=== PATIENT | male | born 1965 | race American Indian/Alaskan Native ===

== ENCOUNTER 2017-01-17 17:50 | Inpatient (IN) | payer OTHER ==
--- NOTE | 2017-01-17 17:54 | Emergency Department Report ---
HPI - General Time Seen by Provider: 01/17/17 17:52 - HPI HPI: 51-year-old Afro-[place]ian male who presents emergency Department by EMS from home with complaint of shortness of breath and some mild chest discomfort as well as lower extremity swelling. Shortness of breath and chest discomfort began earlier today and has been getting progressive worse. The patient is a history of CHF on Lasix, insulin dependent diabetes and a remote history of left lower extremity DVT. He says he has been compliant with his medications. He does not have a primary care doctor but does see [facility] cardiology. No recent travel or sick contacts at home. He denies any fever, nausea, vomiting or diaphoresis. He received 20 mg of Lasix in route with EMS and was placed on a CPAP machine. He was found to have a pulse ox of about 70% on room air at home. ED Past Medical Hx - Past Medical History Hx Hypertension: Yes Hx Heart Attack/AMI: No Hx Congestive Heart Failure: Yes Hx Diabetes: Yes Hx Deep Vein Thrombosis: No Hx Pulmonary Embolism: No Hx Arthritis: Yes Hx Seizures: No Hx Asthma: No Hx COPD: No Hx Tuberculosis: No Hx Dementia: No Additional medical history: gout - Surgical History Hx Coronary Stent: No Hx Pacemaker: No Hx Internal Defibrillator: No - Social History Smoking Status: Never Smoker - Medications Home Medications: Home Medications Medication Instructions Recorded Confirmed Last Taken Type Furosemide [Lasix TAB] 40 mg PO QDAY 01/17/17 01/17/17 Unknown History Hydralazine HCl [Apresoline TAB] 40 mg PO DAILY 01/17/17 01/17/17 Unknown History Insulin Glargine [Lantus VIAL] 15 units SUB-Q QHS 01/17/17 01/17/17 Unknown History Labetalol [Normodyne TAB] 200 mg PO TID 01/17/17 01/17/17 Unknown History NIFEdipine XL [Procardia Xl] 90 mg PO DAILY 01/17/17 01/17/17 Unknown History ED Review of Systems ROS: Stated complaint: GAYLE Other details as noted in HPI Comment: All other systems reviewed and negative Constitutional: denies: chills, fever Eyes: denies: eye pain, eye discharge, vision change ENT: denies: ear pain, throat pain Respiratory: orthopnea, shortness of breath, SOB with exertion Cardiovascular: chest pain, edema Gastrointestinal: denies: abdominal pain, nausea, diarrhea Genitourinary: denies: urgency, dysuria Musculoskeletal: denies: back pain, joint swelling, arthralgia Skin: denies: rash, lesions Neurological: denies: headache, weakness, paresthesias Physical Exam - Physical Exam Physical Exam: GENERAL: The patient is well-developed well-nourished. HEENT: Normocephalic. Atraumatic. Extraocular motions are intact. Patient has moist mucous membranes. Pupils equal reactive to light bilaterally. NECK: Supple. Trachea is midline. CHEST/LUNGS: Coarse breath sounds throughout the chest. There is tachypnea and some supraclavicular accessory muscle use. Patient has conversational dyspnea. There is some respiratory distress noted. HEART/CARDIOVASCULAR: Regular. There is mild tachycardia. There is no gallop rub or murmur. ABDOMEN: Abdomen is soft, nontender. Patient has normal bowel sounds. There is no abdominal distention. SKIN: Skin is warm and dry. 2+ pitting edema to the bilateral lower extremities. NEURO: The patient is awake, alert, and oriented. The patient is cooperative. The patient has no focal neurologic deficits. MUSCULOSKELETAL: There is no tenderness or deformity. There is no limitation range of motion. There is no evidence of acute injury. - ABG Interpretation Ph: 7.349 PCO2: 38 PO2: 65 Bicarbonate: 21 Interpretation: other (hypoxemia) ED Medical Decision Making - Lab Data Result diagrams: 01/17/17 18:26 01/17/17 18:26 - EKG Data -: EKG Interpreted by Ks EKG shows normal: sinus rhythm, axis (LAD), intervals, QRS complexes (LVH with some repolarization), ST-T waves Rate: tachycardia (115 bpm) - EKG Data When compared to previous EKG there are: no significant change Interpretation: unchanged when compared t (10/30/16) - Radiology Data Radiology results: report reviewed VQ scan is negative for pulmonary embolism and is a normal examination. Chest x-ray shows prominent central pulmonary markings suggesting pulmonary vascular congestion. There may be a small left pleural effusion. Similar right mediastinal shift with prominent aortic knob. Aortic calcifications. - Medical Decision Making 51-year-old male presents emergency department by EMS with shortness of breath and found to have some hypoxia. His ABG here also appears consistent with hypoxemia. He has coarse breath sounds and some pitting edema. With an elevated BNP and vascular congestion on chest x-ray, the patient appears to have CHF. He has an elevated d-dimer but also some renal insufficiency so a VQ scan was done but there was no pulmonary embolism. He has some elevated troponins but also has some renal insufficiency. Patient has been on BiPAP machine and with the BiPAP he has remained stable. He will be admitted to the hospital for further evaluation and treatment and has been accepted for admission by the hospitalist, Dr. Meade. - Differential Diagnosis CHF, DE, PE, pneumonia Critical Care Time: No Critical care attestation.: If time is entered above; I have spent that time in minutes in the direct care of this critically ill patient, excluding procedure time. ED Disposition Clinical Impression: Respiratory distress, Hypertensive urgency, Renal insufficiency, Elevated troponin I measurement CHF (congestive heart failure) Qualifiers: Congestive heart failure type: unspecified congestive heart failure type Congestive heart failure chronicity: acute on chronic Qualified Code(s): I50.9 - Heart failure, unspecified Disposition: OP ADMITTED IP TO THIS HOSP Is pt being admited?: Yes Condition: Fair Time of Disposition: 23:02
[2017-01-17] MEDS ORDERED: ATROVENT IH ONE (17:55)
[2017-01-17] MEDS ORDERED: PROVENTIL IH ONE (17:55)
--- NOTE | 2017-01-17 18:11 | Admit Criteria Form ---
Admission Criteria Documentation: HEART FAILURE: COMMON COMPLICATIONS Clinical Indications for Inpatient Care (Place 'X' for any and all applicable criteria): Ongoing inpatient care may be indicated for heart failure with ANY ONE of the following (1)(2)(3)(4)(5): [ ]I. Ongoing need for care for primary condition requiring frequent therapy adjustments because of changes in cardiac function (eg, drug dosage changes for drugs that are renally metabolized) [ ]II. New-onset heart failure [ ]III. Heart failure with decreased urine output not responsive to attempts to optimize volume status [ ]IV. Acute cardiac ischemia causing or associated with failure [X ]V. Complications of heart failure, including ANY ONE of the following: [ ]a) Pericardial effusion [ ]b) Symptomatic pleural effusion [X ]c) O2 saturation <90% or PO2 < 60 mm Hg (8.0 kPa) on room air or require baseline supplemental O2 [ ]d) Tachypnea [X ]e) Dyspnea [ ]f) Syncope [ ]g) Change in mental status [ ]h) Acute renal insufficiency that is severe (reduction of more than 50% in estimated glomerular filtration rate from baseline) or progressive reduction of more than 25% in estimated glomerular filtration rate from baseline, with creatinine continuing to rise) [ ]i) Hemodynamic instability [ ]j) Anasarca [ ]k) Clinically significant metabolic abnormalities due to heart failure (eg, new-onset metabolic acidosis) Extended stay beyond goal length of stay for primary condition may be needed until ALL of the following are present(1)(3): [ ]a) Stable and effective diuretic regimen established (or patient on stable dialysis regimen if in chronic renal failure) [ ]b) Breathing comfortably at rest [ ]c) Saturation of arterial oxygen greater than 90% or at acceptable baseline [ ]d) Pulmonary edema absent or improved [ ]e) Hemodynamic stability [ ]f) Volume status acceptable on oral medication [ ]g) Peripheral or sacral edema absent or improved [ ]h) Renal function stable and manageable at a lower level of care [ ]i) Complications (eg, pleural effusion) resolved or manageable at a lower level of care [ ]j) Patient or caregiver has received written discharge instructions or educational material addressing activity level, diet, discharge medications, follow-up appointment, weight monitoring, and what to do if symptoms worsen The original [employer] content created by [employer] has been revised. The portions of the content which have been revised are identified through the use of italic text or in bold, and [facility] has neither reviewed nor approved the modified material.All other unmodified content is copyright [facility]. Please see references footnoted in the original [facility] edition 2016 Admission Criteria Met: Yes
[2017-01-17 18:20] LABS: ISTAT Base Excess -5; ISTAT HCO3 21.1; ISTAT PCO2 38.3 (35-45); ISTAT PH 7.349 (7.35-7.45); ISTAT PO2 65 (80-105); ISTAT SO2 91; ISTAT TCO2 22
[2017-01-17 18:45] LABS: Basophils % (Auto) 0.9 % (0.0-1.8); Eosinophils % (Auto) 1.6 % (0.0-4.3); Hematocrit 34.5 % (35.5-45.6); Hemoglobin 11.4 gm/dl (11.8-15.2); Mean Corpuscular HGB Conc 33 % (32-34); Mean Corpuscular Hemoglobin 28 pg (28-32); Mean Corpuscular Volume 84 fl (84-94); Platelet Count 189 K/mm3 (140-440); Red Blood Count 4.09 M/mm3 (3.65-5.03); Red Cell Distribution Width 17.1 % (13.2-15.2); White Blood Count 5.8 K/mm3 (4.5-11.0)
[2017-01-17 18:57] LABS: INR 1.05 (0.87-1.13)
[2017-01-17 18:58] LABS: Partial Thromboplastin Time 29.2 Sec. (24.2-36.6)
[2017-01-17 19:09] LABS: Creatine Kinase MB 7.1 ng/mL (0.0-4.0)
[2017-01-17 19:11] LABS: Albumin 3.3 g/dL (3.9-5); Albumin/Globulin Ratio 1.2 %; Bilirubin,Total 0.9 mg/dL (0.1-1.2); Chloride 105.3 mmol/L (98-107); Potassium 4.3 mmol/L (3.6-5.0)
[2017-01-17] MEDS ORDERED: LASIX IV ONE (19:27)
[2017-01-17] MEDS ORDERED: BABY ASPIRIN PO ONE (19:27)
--- NOTE | 2017-01-17 20:13 | XRay Report ---
FINAL REPORT EXAM: XR CHEST 1V AP HISTORY: Chest Pain TECHNIQUE: Frontal chest x-ray. PRIORS: Chest x-ray November 04, 2016. FINDINGS: Enlarged cardiac silhouette is stable. Aortic calcifications identified. Tracheal lucency shifted to the right with a prominent aortic knob. This is relatively unchanged compared the prior. This is also slightly exaggerated due to the rotation of the patient. Prominent central pulmonary markings with subtle airspace opacities identified. Ill-defined opacity in the left lung base suggest effusion with adjacent area of focal atelectasis. Stable elevated left hemidiaphragm with gastric gas identified. No pneumothorax. No right pleural effusion. There are no suspicious osseous lesions. IMPRESSION: Stable cardiomegaly. Similar right mediastinal shift with prominent aortic knob. Aortic calcifications identified. Further imaging with a CT thorax with contrast is recommended if clinically indicated to evaluate the aorta and mediastinal structures. Prominent central pulmonary markings suggest pulmonary vascular congestion. There may be a small left pleural effusion focal adjacent atelectasis.
--- NOTE | 2017-01-17 21:35 | Nuclear Medicine Report ---
FINAL REPORT PROCEDURE: NM LUNG SCAN PERF/VENT TECHNIQUE: Five mCi Tc-99m MAA was injected IV for pulmonary perfusion imaging in multiple projections. Fifteen mCi xenon 133 gas was inhaled for pulmonary ventilation imaging in multiple projections. HISTORY: SOB, elevated dimer COMPARISON: Chest x-ray from the same day and nuclear medicine scan dated February 12, 2016 FINDINGS: Perfusion: No defects . Ventilation: No defects . IMPRESSION: Normal Examination
--- NOTE | 2017-01-17 22:36 | History and Physical Report ---
History of Present Illness Date of examination: 01/17/17 History of present illness: 51-year-old man history of hypertension, diabetes, CHF, hyperlipidemia, chronic kidney disease comes emergency room with complaints shortness of breath, PND and orthopnea, also lower extremity edema. Patient stated he is compliant with diet and medications, patient on BiPAP Patient denies chest pain, palpitation, cough, abdominal pain, hematochezia, dysuria, frequency, focal weakness, dysarthria, fever chills, polydipsia polyuria, hot or cold intolerance, easy bruisability, or rash or bleeding from mucosal membrane, rhinorrhea, epistaxis, earache, tinnitus, blurry vision, eye discharge, anxiety, depression. Other review of systems negative PAST SURGICAL HISTORY: None SOCIAL HISTORY: Denies alcohol, tobacco, drugs FAMILY HISTORY: Hypertension, diabetes Medications and Allergies Allergies Allergy/AdvReac Type Severity Reaction Status Date / Time peach Allergy Unknown Swelling Verified 07/10/16 20:59 Home Medications Medication Instructions Recorded Confirmed Last Taken Type Insulin Glargine [Lantus VIAL] 15 units SUB-Q QHS 01/17/17 01/17/17 Unknown History Labetalol [Normodyne TAB] 200 mg PO TID 01/17/17 01/17/17 Unknown History NIFEdipine XL [Procardia Xl] 90 mg PO DAILY 01/17/17 01/17/17 Unknown History Furosemide [Lasix TAB] 80 mg PO 0600,1800 #60 tablet 01/24/17 Unknown Rx Lisinopril [Zestril TAB] 40 mg PO QDAY #30 tablet 01/24/17 Unknown Rx Metolazone [Zaroxolyn] 2.5 mg PO QDAY #30 tablet 01/24/17 Unknown Rx Exam - Physical Exam Narrative exam: Gen. appearance: Patient lying in bed, no apparent distress HEENT: Normocephalic, atraumatic, pupils equally round and reactive to light, extraocular movement intact, and no sclericterus,. No JVD or thyromegaly or nodule,neck supple, no carotid bruit ,mucous membranes moist, no exudate or erythema Heart: S1, S2, regular rate and rhythm Lungs:Crackles bilaterally, breathing comfortable Abdomen: Positive bowel sounds, nontender, nondistended, no organomegaly Extremity: 3+ edema up to knees b/l, no cyanosis, clubbing Skin: No rash, nodules, warm, dry Neuro: Oriented 3, cranial nerves II-12 intact, speech is fluent, motor and sensory intact - Constitutional Vitals: Temp Pulse Resp BP Pulse Ox 98.1 F 108 H 21 195/113 99 01/17/17 17:58 01/17/17 19:37 01/17/17 19:37 01/17/17 19:37 01/17/17 19:37 Results - Labs CBC & Chem 7: 01/20/17 14:48 01/24/17 10:07 Labs: Abnormal lab results 01/17/17 01/17/17 01/17/17 Range/Units 18:13 18:26 18:26 Hgb 11.4 L (11.8-15.2) gm/dl Hct 34.5 L (35.5-45.6) % RDW 17.1 H (13.2-15.2) % Lymph % (Auto) 11.6 L (13.4-35.0) % [place] % (Auto) 9.7 H (0.0-7.3) % Lymph # 0.7 L (1.2-5.4) K/mm3 Seg Neutrophils % 76.2 H (40.0-70.0) % D-Dimer 985.51 H (0-234) ng/mlDDU POC ABG pH 7.349 L (7.35-7.45) POC ABG pO2 65 L (80-105) Carbon Dioxide (22-30) mmol/L Creatinine (0.8-1.5) mg/dL Glucose (75-100) mg/dL Calcium (8.4-10.2) mg/dL Total Creatine Kinase (55-170) units/L CK-MB (CK-2) (0.0-4.0) ng/mL Troponin T (0.00-0.029) ng/mL NT-Pro-B Natriuret Pep (0-900) pg/mL Total Protein (6.3-8.2) g/dL Albumin (3.9-5) g/dL Triglycerides (2-149) mg/dL Cholesterol (50-199) mg/dL LDL Cholesterol Direct (50-130) mg/dL HDL Cholesterol (40-59) mg/dL 01/17/17 01/17/17 Range/Units 18:26 21:16 Hgb (11.8-15.2) gm/dl Hct (35.5-45.6) % RDW (13.2-15.2) % Lymph % (Auto) (13.4-35.0) % [place] % (Auto) (0.0-7.3) % Lymph # (1.2-5.4) K/mm3 Seg Neutrophils % (40.0-70.0) % D-Dimer (0-234) ng/mlDDU POC ABG pH (7.35-7.45) POC ABG pO2 (80-105) Carbon Dioxide 21 L (22-30) mmol/L Creatinine 2.0 H (0.8-1.5) mg/dL Glucose 190 H (75-100) mg/dL Calcium 8.0 L (8.4-10.2) mg/dL Total Creatine Kinase 480 H (55-170) units/L CK-MB (CK-2) 7.1 H (0.0-4.0) ng/mL Troponin T 0.136 H* 0.130 H* (0.00-0.029) ng/mL NT-Pro-B Natriuret Pep 5133 H (0-900) pg/mL Total Protein 6.0 L (6.3-8.2) g/dL Albumin 3.3 L (3.9-5) g/dL Triglycerides 325 H (2-149) mg/dL Cholesterol 243 H (50-199) mg/dL LDL Cholesterol Direct 146 H (50-130) mg/dL HDL Cholesterol 32 L (40-59) mg/dL - Imaging and Cardiology EKG: image reviewed Chest x-ray: image reviewed Assessment and Plan VQ low probability for PE Acute respiratory failure CHF exacerbation, diastolic Hypertensive malignant Diabetes type 2 Hyperlipidemia Chronic kidney disease Admit to medicine Start diuresis with IV lasix, continue BiPAP Check cardiac enzymes, echo consult cardiology Monitor I/Os, daily weights, start beta celestine, aspirin, hold KIYA inhibitor due to kidney disease Check fingersticks and initiate insulin sliding scale Continue outpatient medications DVT prophylaxis with eilquis
[2017-01-17] MEDS ORDERED: ZOFRAN IV PRN (22:39)
[2017-01-17] MEDS ORDERED: PROVENTIL IH PRN (22:39)
[2017-01-17] MEDS ORDERED: MILK OF MAGNESIA PO PRN (22:39)
[2017-01-17] MEDS ORDERED: DULCOLAX PR PRN (22:39)
[2017-01-17] MEDS ORDERED: D50W (25GM) IV PRN (22:39)
[2017-01-17] MEDS ORDERED: APRESOLINE ONE (23:05)
[2017-01-17] MEDS ORDERED: APRESOLINE IV ONE (23:07)
[2017-01-18 00:47] LABS: Creatine Kinase MB 6.4 ng/mL (0.0-4.0)
[2017-01-18 00:58] LABS: Creatine Kinase MB 6.4 ng/mL (0.0-4.0)
[2017-01-18 05:26] LABS: Basophils % (Auto) 0.6 % (0.0-1.8); Eosinophils % (Auto) 1.9 % (0.0-4.3); Hematocrit 34.5 % (35.5-45.6); Hemoglobin 11.5 gm/dl (11.8-15.2); Mean Corpuscular HGB Conc 33 % (32-34); Mean Corpuscular Hemoglobin 28 pg (28-32); Mean Corpuscular Volume 83 fl (84-94); Platelet Count 184 K/mm3 (140-440); Red Blood Count 4.14 M/mm3 (3.65-5.03); Red Cell Distribution Width 16.7 % (13.2-15.2); White Blood Count 6.9 K/mm3 (4.5-11.0)
[2017-01-18] MEDS: APRESOLINE IV PRN ×2 (06:20→12:18)
[2017-01-18] MEDS: LASIX IV SCH ×2 (06:20→17:24)
[2017-01-18 06:28] LABS: BUN/Creatinine Ratio 11.05; Calcium 8.4 mg/dL (8.4-10.2); Chloride 107.5 mmol/L (98-107); Creatine Kinase MB 5.6 ng/mL (0.0-4.0); Potassium 3.9 mmol/L (3.6-5.0)
--- NOTE | 2017-01-18 09:04 | Progress Note ---
Assessment and Plan Assessment and plan: 51-year-old man history of hypertension, diabetes, CHF, hyperlipidemia, chronic kidney disease comes emergency room with complaints shortness of breath, PND and orthopnea, also lower extremity edema 1. Acute exacerbation of diastolic CHF Continue IV Lasix, optimize meds, patient has had a recent echo in June 2016 which showed preserved EF, followed cardiology consult. Low-salt diet, strict I 's and O's and daily weights PE has been ruled out by negative VQ scan 2. Accelerated hypertension Optimize medications, continue hydralazine when necessary 3. Acute hypoxic respiratory failure Continue oxygen supplementation 4. Diabetes Optimize insulins 5. Aortic no abnormality noted on chest x-ray Follow-up CT chest with IV contrast 6. Chronic kidney disease stage III Avoid nephrotoxic agents, continue diuresis History Interval history: Continues to have shortness of breath orthopnea and bilateral pedal edema Hospitalist Physical - Physical exam Narrative exam: General: Patient appears well in no distress HEENT: MMM, EOMI cardiac: S1-S2 heard lungs: Bibasilar crackles abdomen: soft, nontender, nondistended bowel sounds positive extremities: 2+ bipedal pitting edema Skin: no rash or lesion Neuro: no focal deficit Psych: appropriate behavior and mood, cognition intact - Constitutional Vitals: Temp Pulse Resp BP Pulse Ox 98.6 F 94 H 20 196/107 99 01/18/17 06:10 01/18/17 06:20 01/18/17 06:10 01/18/17 06:20 01/18/17 06:10 Results - Labs CBC & Chem 7: 01/18/17 04:44 01/18/17 04:44 Labs: Laboratory Last Values WBC 6.9 K/mm3 (4.5-11.0) 01/18/17 04:44 RBC 4.14 M/mm3 (3.65-5.03) 01/18/17 04:44 Hgb 11.5 gm/dl (11.8-15.2) L 01/18/17 04:44 Hct 34.5 % (35.5-45.6) L 01/18/17 04:44 MCV 83 fl (84-94) L 01/18/17 04:44 MCH 28 pg (28-32) 01/18/17 04:44 MCHC 33 % (32-34) 01/18/17 04:44 RDW 16.7 % (13.2-15.2) H 01/18/17 04:44 Plt Count 184 K/mm3 (140-440) 01/18/17 04:44 Lymph % (Auto) 17.5 % (13.4-35.0) 01/18/17 04:44 [place] % (Auto) 14.0 % (0.0-7.3) H 01/18/17 04:44 Eos % (Auto) 1.9 % (0.0-4.3) 01/18/17 04:44 Baso % (Auto) 0.6 % (0.0-1.8) 01/18/17 04:44 Lymph # 1.2 K/mm3 (1.2-5.4) 01/18/17 04:44 [place] # 1.0 K/mm3 (0.0-0.8) H 01/18/17 04:44 Eos # 0.1 K/mm3 (0.0-0.4) 01/18/17 04:44 Baso # 0.0 K/mm3 (0.0-0.1) 01/18/17 04:44 Seg Neutrophils % 66.0 % (40.0-70.0) 01/18/17 04:44 Seg Neutrophils # 4.5 K/mm3 (1.8-7.7) 01/18/17 04:44 PT 13.6 Sec. (12.2-14.9) 01/17/17 18:26 INR 1.05 (0.87-1.13) 01/17/17 18:26 APTT 29.2 Sec. (24.2-36.6) 01/17/17 18:26 D-Dimer 985.51 ng/mlDDU (0-234) H 01/17/17 18:26 POC ABG pH 7.349 (7.35-7.45) L 01/17/17 18:13 POC ABG pCO2 38.3 (35-45) 01/17/17 18:13 POC ABG pO2 65 (80-105) L 01/17/17 18:13 POC ABG HCO3 21.1 01/17/17 18:13 POC ABG Total CO2 22 01/17/17 18:13 POC ABG O2 Sat 91 01/17/17 18:13 POC ABG Base Excess -5 01/17/17 18:13 FiO2 30 % 01/17/17 18:13 Sodium 143 mmol/L (137-145) 01/18/17 04:44 Potassium 3.9 mmol/L (3.6-5.0) 01/18/17 04:44 Chloride 107.5 mmol/L (98-107) H 01/18/17 04:44 Carbon Dioxide 22 mmol/L (22-30) 01/18/17 04:44 Anion Gap 17 mmol/L 01/18/17 04:44 BUN 21 mg/dL (9-20) H 01/18/17 04:44 Creatinine 1.9 mg/dL (0.8-1.5) H 01/18/17 04:44 Estimated GFR 45 ml/min 01/18/17 04:44 BUN/Creatinine Ratio 11.05 % 01/18/17 04:44 Glucose 128 mg/dL (75-100) H 01/18/17 04:44 POC Glucose 127 (70-105) H 01/18/17 01:05 Calcium 8.4 mg/dL (8.4-10.2) 01/18/17 04:44 Total Bilirubin 0.9 mg/dL (0.1-1.2) 01/17/17 18:26 AST 15 units/L (5-40) 01/17/17 18:26 ALT 13 units/L (7-56) 01/17/17 18:26 Alkaline Phosphatase 65 units/L (35-129) 01/17/17 18:26 Total Creatine Kinase 404 units/L (55-170) H 01/18/17 04:44 CK-MB (CK-2) 5.6 ng/mL (0.0-4.0) H 01/18/17 04:44 CK-MB (CK-2) Rel Index 1.3 (0-4) 01/18/17 04:44 Troponin T 0.134 ng/mL (0.00-0.029) H* 01/18/17 04:44 NT-Pro-B Natriuret Pep 5133 pg/mL (0-900) H 01/17/17 18:26 Total Protein 6.0 g/dL (6.3-8.2) L 01/17/17 18:26 Albumin 3.3 g/dL (3.9-5) L 01/17/17 18:26 Albumin/Globulin Ratio 1.2 % 01/17/17 18:26 Triglycerides 325 mg/dL (2-149) H 01/17/17 18:26 Cholesterol 243 mg/dL (50-199) H 01/17/17 18:26 LDL Cholesterol Direct 146 mg/dL (50-130) H 01/17/17 18:26 HDL Cholesterol 32 mg/dL (40-59) L 01/17/17 18:26 Cholesterol/HDL Ratio 7.59 % 01/17/17 18:26 - Imaging and Cardiology Chest x-ray: image reviewed (venous congestion seen, per Gavin the aortic knob)
[2017-01-18] MEDS: NOVOLOG SUB-Q SCH ×4 (09:14→23:40)
[2017-01-18] MEDS ORDERED: LOVENOX SUB-Q SCH (10:00)
[2017-01-18] MEDS ORDERED: COREG PO SCH (10:00)
[2017-01-18] MEDS ORDERED: ZESTRIL PO SCH ×2 (10:00)
[2017-01-18] MEDS: PROCARDIA XL PO SCH (10:16)
[2017-01-18] MEDS: NORMODYNE PO SCH ×3 (10:16→22:01)
[2017-01-18] MEDS: LOVENOX SUB-Q SCH (10:16)
[2017-01-18] MEDS: ASPIRIN PO SCH (10:16)
[2017-01-18] MEDS: ZESTRIL PO SCH (10:16)
--- NOTE | 2017-01-18 11:01 | Consultation ---
History of Present Illness Consult date: 01/18/17 Consult reason: congestive heart failure History of present illness: Mr Greer is a 51yr old man who was brought in with shortness of breath, now admitted with acute hypoxic respiratory failure and diastolic heart failure. Chest x-ray reports pulmonary vascular congestion. BP 229/130 in the ED. Patient admits noncomplaince with his medications due to recent incarceration and financial issues. Noted generalized edema extending upwards, to his thighs. Patient denies chest pain. Cardiac consultation requested. Medications and Allergies Allergies Allergy/AdvReac Type Severity Reaction Status Date / Time peach Allergy Unknown Swelling Verified 07/10/16 20:59 Home Medications Medication Instructions Recorded Confirmed Last Taken Type Furosemide [Lasix TAB] 40 mg PO QDAY 01/17/17 01/17/17 Unknown History Hydralazine HCl [Apresoline TAB] 40 mg PO DAILY 01/17/17 01/17/17 Unknown History Insulin Glargine [Lantus VIAL] 15 units SUB-Q QHS 01/17/17 01/17/17 Unknown History Labetalol [Normodyne TAB] 200 mg PO TID 01/17/17 01/17/17 Unknown History NIFEdipine XL [Procardia Xl] 90 mg PO DAILY 01/17/17 01/17/17 Unknown History Active Meds: Active Medications Acetaminophen (Tylenol) 650 mg PO Q4H PRN PRN Reason: Pain MILD(1-3)/Fever >100.5/RAYMUNDO Albuterol (Proventil) 2.5 mg IH Q3HRT PRN PRN Reason: Shortness Of Breath Aspirin (Aspirin) 325 mg PO QDAY [facility] Last Admin: 01/18/17 10:16 Dose: 325 mg Bisacodyl (Dulcolax) 10 mg [place] QDAY PRN PRN Reason: Constipation unrelieved by MOM Dextrose (D50w (25gm)) 50 ml IV PRN PRN PRN Reason: Hypoglycemia Enoxaparin Sodium (Lovenox) 40 mg SUB-Q QDAY@1000 [facility] Last Admin: 01/18/17 10:16 Dose: 40 mg Furosemide (Lasix) 40 mg IV BID@0600,1800 [facility] Last Admin: 01/18/17 06:20 Dose: 40 mg Hydralazine HCl (Apresoline) 5 mg IV Q6H PRN PRN Reason: Hypertension Last Admin: 01/18/17 06:20 Dose: 5 mg Insulin Aspart (Novolog) 0 units SUB-Q ACHS [facility] PRN Reason: Protocol Last Admin: 01/18/17 09:14 Dose: Not Given Insulin Detemir (Levemir) 15 units SUB-Q QHS [facility] Labetalol HCl (Normodyne) 200 mg PO TID [facility] Last Admin: 01/18/17 10:16 Dose: 200 mg Lisinopril (Zestril) 40 mg PO QDAY [facility] Last Admin: 01/18/17 10:16 Dose: 40 mg Magnesium Hydroxide (Milk Of Magnesia) 30 ml PO Q4H PRN PRN Reason: Constipation Nifedipine (Procardia Xl) 90 mg PO DAILY [facility] Last Admin: 01/18/17 10:16 Dose: 90 mg Ondansetron HCl (Zofran) 4 mg IV Q8H PRN PRN Reason: N/V unrelieved by Reglan Physical Examination Vital Signs Pulse Resp Pulse Ox 79 14 100 01/17/17 15:50 01/17/17 15:50 01/17/17 15:50 General appearance: no acute distress HEENT: Positive: PERRL Neck: Positive: trachea midline Cardiac: Positive: Reg Rate and Rhythm Lungs: Positive: Decreased Breath Sounds Extremities: Present: +4 Edema Results 01/18/17 04:44 01/18/17 04:44 Cardiac Enzymes 01/17/17 01/17/17 01/18/17 Range/Units 23:56 23:56 04:44 CK-MB (CK-2) 6.4 H 6.4 H 5.6 H (0.0-4.0) ng/mL CBC 01/18/17 Range/Units 04:44 WBC 6.9 (4.5-11.0) K/mm3 RBC 4.14 (3.65-5.03) M/mm3 Hgb 11.5 L (11.8-15.2) gm/dl Hct 34.5 L (35.5-45.6) % Plt Count 184 (140-440) K/mm3 Lymph # 1.2 (1.2-5.4) K/mm3 [place] # 1.0 H (0.0-0.8) K/mm3 Eos # 0.1 (0.0-0.4) K/mm3 Baso # 0.0 (0.0-0.1) K/mm3 Comprehensive Metabolic Panel 01/18/17 Range/Units 04:44 Sodium 143 (137-145) mmol/L Potassium 3.9 (3.6-5.0) mmol/L Chloride 107.5 H (98-107) mmol/L Carbon Dioxide 22 (22-30) mmol/L BUN 21 H (9-20) mg/dL Creatinine 1.9 H (0.8-1.5) mg/dL Glucose 128 H (75-100) mg/dL Calcium 8.4 (8.4-10.2) mg/dL Assessment and Plan Acute hypoxic respiratory failure V/Q scan- normal perfusion Anasarca Chronic CHF, diastolic normal LVEF, severe LVH on echo 06/2016 Systemic Hypertension -uncontrolled Chronic kidney disease Elevated troponin, chronic Hyperlipidemia Hx of DVT -previously on eliquis [facility] 2012 reports no significant coronary disease. Normal MPI 12/2015
--- NOTE | 2017-01-18 13:11 | Cat Scan Report ---
CT CHEST WITHOUT CONTRAST INDICATION: Aortic knob prominence. COMPARISON: None similar. FINDINGS: Noncontrast chest CT demonstrates mild cardiomegaly. No effusions. Motion artifact limits exam. Minimal left coronary calcifications. No aortic aneurysm. Assessment of the great vessels and for detecting subtle lymphadenopathy limited due to lack of IV contrast. Approximately 1.3 x 1.6 cm subcarinal lymph node may though be present, axial image 42, series 2. Patent airway. Grossly unremarkable thyroid. Clear lungs. Slight nonspecific distal esophageal prominence. Few tiny gallbladder calculi noted dependently. Mildly lobulated renal contours. Mild multilevel spinal degenerative spurring. CONCLUSION: No acute significant chest CT abnormality on this limited, unenhanced exam with few incidental findings, including mild cardiomegaly, possible subcarinal lymph node and cholelithiasis, amongst others, as described. Thank you for the opportunity to participate in this patient's care.
[2017-01-18 15:57] LABS: Urine Drugs of Abuse Note Disclamer
[2017-01-18 16:11] LABS: Bilirubin,Urine NEG (Negative); Blood,Urine SM (Negative); Ketones,Urine NEG (Negative); Leukocyte Esterase,Urine NEG (Negative); Nitrite,Urine NEG (Negative); Urobilinogen,Urine < 2.0 mg/dL (<2.0)
[2017-01-18 16:12] LABS: Protein,Urine >500 mg/dL (Negative)
[2017-01-18] MEDS ORDERED: NON-FORMULARY (Insulin Glargine 15 UNITS) SUB-Q SCH (22:00)
[2017-01-18] MEDS: LEVEMIR SUB-Q SCH (22:02)
[2017-01-19] MEDS: LASIX IV SCH ×2 (05:09→17:05)
[2017-01-19] MEDS: NOVOLOG SUB-Q SCH ×3 (08:45→17:05)
[2017-01-19] MEDS: NORMODYNE PO SCH ×3 (08:47→21:58)
--- NOTE | 2017-01-19 08:57 | Progress Note ---
Assessment and Plan Assessment and plan: 51-year-old man history of hypertension, diabetes, CHF, hyperlipidemia, chronic kidney disease comes emergency room with complaints shortness of breath, PND and orthopnea, also lower extremity edema 1. Acute exacerbation of diastolic CHF Continue IV Lasix, optimize meds, patient has had a recent echo in June 2016 which showed preserved EF, followed cardiology consult. Low-salt diet, strict I 's and O's and daily weights PE has been ruled out by negative VQ scan 2. Accelerated hypertension Optimize medications, continue hydralazine when necessary 3. Acute hypoxic respiratory failure Continue oxygen supplementation 4. Diabetes Optimize insulins 5. Aortic no abnormality noted on chest x-ray Follow-up CT chest with IV contrast 6. Chronic kidney disease stage III Avoid nephrotoxic agents, continue diuresis History Interval history: Continues to have shortness of breath orthopnea and bilateral pedal edema Hospitalist Physical - Physical exam Narrative exam: General: Patient appears well in no distress HEENT: MMM, EOMI cardiac: S1-S2 heard lungs: Bibasilar crackles abdomen: soft, nontender, nondistended bowel sounds positive extremities: 2+ bipedal pitting edema Skin: no rash or lesion Neuro: no focal deficit Psych: appropriate behavior and mood, cognition intact - Constitutional Vitals: Temp Pulse Resp BP Pulse Ox 98.1 F 86 18 166/85 96 01/19/17 07:30 01/19/17 08:47 01/19/17 07:30 01/19/17 08:47 01/19/17 08:43 General appearance: Present: no acute distress Results - Labs CBC & Chem 7: 01/18/17 04:44 01/18/17 04:44 Labs: Laboratory Last Values WBC 6.9 K/mm3 (4.5-11.0) 01/18/17 04:44 RBC 4.14 M/mm3 (3.65-5.03) 01/18/17 04:44 Hgb 11.5 gm/dl (11.8-15.2) L 01/18/17 04:44 Hct 34.5 % (35.5-45.6) L 01/18/17 04:44 MCV 83 fl (84-94) L 01/18/17 04:44 MCH 28 pg (28-32) 01/18/17 04:44 MCHC 33 % (32-34) 01/18/17 04:44 RDW 16.7 % (13.2-15.2) H 01/18/17 04:44 Plt Count 184 K/mm3 (140-440) 01/18/17 04:44 Lymph % (Auto) 17.5 % (13.4-35.0) 01/18/17 04:44 [place] % (Auto) 14.0 % (0.0-7.3) H 01/18/17 04:44 Eos % (Auto) 1.9 % (0.0-4.3) 01/18/17 04:44 Baso % (Auto) 0.6 % (0.0-1.8) 01/18/17 04:44 Lymph # 1.2 K/mm3 (1.2-5.4) 01/18/17 04:44 [place] # 1.0 K/mm3 (0.0-0.8) H 01/18/17 04:44 Eos # 0.1 K/mm3 (0.0-0.4) 01/18/17 04:44 Baso # 0.0 K/mm3 (0.0-0.1) 01/18/17 04:44 Seg Neutrophils % 66.0 % (40.0-70.0) 01/18/17 04:44 Seg Neutrophils # 4.5 K/mm3 (1.8-7.7) 01/18/17 04:44 PT 13.6 Sec. (12.2-14.9) 01/17/17 18:26 INR 1.05 (0.87-1.13) 01/17/17 18:26 APTT 29.2 Sec. (24.2-36.6) 01/17/17 18:26 D-Dimer 985.51 ng/mlDDU (0-234) H 01/17/17 18:26 POC ABG pH 7.349 (7.35-7.45) L 01/17/17 18:13 POC ABG pCO2 38.3 (35-45) 01/17/17 18:13 POC ABG pO2 65 (80-105) L 01/17/17 18:13 POC ABG HCO3 21.1 01/17/17 18:13 POC ABG Total CO2 22 01/17/17 18:13 POC ABG O2 Sat 91 04/27/17 18:13 POC ABG Base Excess -5 01/17/17 18:13 FiO2 30 % 01/17/17 18:13 Sodium 143 mmol/L (137-145) 01/18/17 04:44 Potassium 3.9 mmol/L (3.6-5.0) 01/18/17 04:44 Chloride 107.5 mmol/L (98-107) H 01/18/17 04:44 Carbon Dioxide 22 mmol/L (22-30) 01/18/17 04:44 Anion Gap 17 mmol/L 01/18/17 04:44 BUN 21 mg/dL (9-20) H 01/18/17 04:44 Creatinine 1.9 mg/dL (0.8-1.5) H 01/18/17 04:44 Estimated GFR 45 ml/min 01/18/17 04:44 BUN/Creatinine Ratio 11.05 % 01/18/17 04:44 Glucose 128 mg/dL (75-100) H 01/18/17 04:44 POC Glucose 136 (70-105) H 01/18/17 21:37 Calcium 8.4 mg/dL (8.4-10.2) 01/18/17 04:44 Total Bilirubin 0.9 mg/dL (0.1-1.2) 01/17/17 18:26 AST 15 units/L (5-40) 01/17/17 18:26 ALT 13 units/L (7-56) 01/17/17 18:26 Alkaline Phosphatase 65 units/L (35-129) 01/17/17 18:26 Total Creatine Kinase 404 units/L (55-170) H 01/18/17 04:44 CK-MB (CK-2) 5.6 ng/mL (0.0-4.0) H 01/18/17 04:44 CK-MB (CK-2) Rel Index 1.3 (0-4) 01/18/17 04:44 Troponin T 0.134 ng/mL (0.00-0.029) H* 01/18/17 04:44 NT-Pro-B Natriuret Pep 5133 pg/mL (0-900) H 01/17/17 18:26 Total Protein 6.0 g/dL (6.3-8.2) L 01/17/17 18: Albumin 3.3 g/dL (3.9-5) L 01/17/17 18:26 Albumin/Globulin Ratio 1.2 % 01/17/17 18:26 Triglycerides 325 mg/dL (2-149) H 01/17/17 18:26 Cholesterol 243 mg/dL (50-199) H 01/17/17 18:26 LDL Cholesterol Direct 146 mg/dL (50-130) H 01/17/17 18:26 HDL Cholesterol 32 mg/dL (40-59) L 01/17/17 18:26 Cholesterol/HDL Ratio 7.59 % 01/17/17 18:26 Urine Color Yellow (Yellow) 01/18/17 15:45 Urine Turbidity Clear (Clear) 01/18/17 15:45 Urine pH 5.0 (5.0-7.0) 01/18/17 15:45 Ur Specific [place] 1.010 (1.003-1.030) 01/18/17 15:45 Urine Protein >500 mg/dL (Negative) 01/18/17 15:45 Urine Glucose (UA) 50 mg/dL (Negative) 01/18/17 15:45 Urine Ketones Neg mg/dL (Negative) 01/18/17 15:45 Urine Blood Sm (Negative) 01/18/17 15:45 Urine Nitrite Neg (Negative) 01/18/17 15:45 Urine Bilirubin Neg (Negative) 01/18/17 15:45 Urine Urobilinogen < 2.0 mg/dL (<2.0) 01/18/17 15:45 Ur Leukocyte Esterase Neg (Negative) 01/18/17 15:45 Urine WBC (Auto) 3.0 /HPF (0.0-6.0) 01/18/17 15:45 Urine RBC (Auto) 5.0 /HPF (0.0-6.0) 01/18/17 15:45 U Epithel Cells (Auto) < 1.0 /HPF (0-13.0) 01/18/17 15:45 Urine Opiates Screen Presumptive negative 01/18/17 15:45 Urine Methadone Screen Presumptive negative 01/18/17 15:45 Ur Barbiturates Screen Presumptive negative 01/18/17 15:45 Ur Phencyclidine Scrn Presumptive negative 01/18/17 15:45 Ur Amphetamines Screen Presumptive negative 01/18/17 15:45 U Benzodiazepines Scrn Presumptive negative 01/18/17 15:45 Urine Cocaine Screen Presumptive negative 01/18/17 15:45 U Marijuana (THC) Screen Presumptive negative 01/18/17 15:45 Drugs of Abuse Note Disclamer 01/18/17 15:45
[2017-01-19] MEDS: ZESTRIL PO SCH (09:48)
[2017-01-19] MEDS: ASPIRIN PO SCH (09:48)
[2017-01-19] MEDS: PROCARDIA XL PO SCH (09:48)
[2017-01-19] MEDS: LOVENOX SUB-Q SCH (09:48)
[2017-01-19] MEDS: TYLENOL PO PRN ×2 (11:25→21:57)
--- NOTE | 2017-01-19 13:14 | Progress Note ---
Assessment and Plan Anasarca Chronic CHF, diastolic normal LVEF, severe LVH on echo 06/2016 Systemic Hypertension -uncontrolled Chronic kidney disease Elevated troponin, chronic Hyperlipidemia Hx of DVT -previously on eliquis [facility] at [facility] 2012 reports no significant coronary disease. Normal MPI 12/2015 Recommend: Continue current therapy including IV diuresis. Subjective Date of service: 01/19/17 Interval history: No new complaints. Continues to have dyspnea. Objective Vital Signs Temp Pulse Pulse Pulse Resp BP BP 01/19/17 11:30 98.1 F 93 H 18 135/74 01/19/17 11:25 16 01/19/17 09:48 96 H 166/85 01/19/17 08:47 86 166/85 01/19/17 08:43 01/19/17 07:30 98.1 F 96 H 18 166/85 01/19/17 06:03 98.5 F 90 24 137/79 01/19/17 00:51 98.5 F 86 22 159/87 01/19/17 00:00 100 H 01/18/17 22:23 01/18/17 20:31 98.7 F 90 22 135/77 01/18/17 17:34 91 H 152/74 Pulse Ox 01/19/17 11:30 94 01/19/17 11:25 01/19/17 09:48 01/19/17 08:47 01/19/17 08:43 96 01/19/17 07:30 98 01/19/17 06:03 100 01/19/17 00:51 100 01/19/17 00:00 01/18/17 22:23 100 01/18/17 20:31 98 01/18/17 17:34 - Physical Examination HEENT: Positive: PERRL Neck: Positive: trachea midline Cardiac: Positive: Reg Rate and Rhythm Lungs: Positive: Decreased Breath Sounds Abdomen: Positive: Soft, Distended Extremities: Present: +4 Edema - Imaging and Cardiology EKG: image reviewed
[2017-01-19] MEDS: LEVEMIR SUB-Q SCH (21:58)
[2017-01-20] MEDS: LASIX IV SCH ×2 (05:30→17:13)
[2017-01-20] MEDS: NOVOLOG SUB-Q SCH ×5 (09:43→23:21)
[2017-01-20] MEDS: PROCARDIA XL PO SCH (09:44)
[2017-01-20] MEDS: ASPIRIN PO SCH (09:44)
[2017-01-20] MEDS: LOVENOX SUB-Q SCH (09:44)
[2017-01-20] MEDS: NORMODYNE PO SCH ×3 (09:44→23:06)
[2017-01-20] MEDS: ZESTRIL PO SCH (09:45)
--- NOTE | 2017-01-20 10:29 | Progress Note ---
Assessment and Plan Anasarca Chronic CHF, diastolic normal LVEF, severe LVH on echo 06/2016 Systemic Hypertension -uncontrolled Chronic kidney disease Elevated troponin, chronic Hyperlipidemia Hx of DVT -previously on eliquis [facility] at [facility] 2012 reports no significant coronary disease. Normal MPI 12/2015 Recommend: Continue current therapy including IV diuresis. Repeat labs, electrolytes. Subjective Date of service: 01/20/17 Interval history: No new complaints. Dyspnea has improved. Objective Vital Signs Temp Pulse Pulse Resp BP BP Pulse Ox 01/20/17 09:45 77 156/77 01/20/17 09:44 77 156/77 01/20/17 08:00 97.6 F 77 20 156/77 97 01/20/17 05:30 98.4 F 80 20 152/91 100 01/20/17 00:37 97.6 F 83 22 125/76 100 01/20/17 00:00 78 01/19/17 22:34 86 26 H 99 01/19/17 20:36 99.0 F 84 20 134/84 98 01/19/17 16:30 98.4 F 82 18 123/59 96 01/19/17 13:30 90 116/66 01/19/17 13:26 90 116/66 01/19/17 11:30 98.1 F 93 H 18 135/74 94 01/19/17 11:25 16 - Physical Examination HEENT: Positive: PERRL Neck: Positive: trachea midline Cardiac: Positive: Reg Rate and Rhythm Lungs: Positive: Decreased Breath Sounds Abdomen: Positive: Soft, Distended Extremities: Present: +3 Edema - Imaging and Cardiology EKG: image reviewed
--- NOTE | 2017-01-20 12:02 | Progress Note ---
Assessment and Plan Assessment and plan: 51-year-old man history of hypertension, diabetes, CHF, hyperlipidemia, chronic kidney disease comes emergency room with complaints shortness of breath, PND and orthopnea, also lower extremity edema 1. Acute exacerbation of diastolic CHF Continue IV Lasix, optimize meds, patient has had a recent echo in June 2016 which showed preserved EF, followed cardiology consult. Low-salt diet, strict I 's and O's and daily weights PE has been ruled out by negative VQ scan -patient is not responding well to lasix, will initiate milrinone drip and increase lasix dose 2. Accelerated hypertension Optimize medications, continue hydralazine when necessary 3. Acute hypoxic respiratory failure Continue oxygen supplementation 4. Diabetes Optimize insulins 5. Aortic knob abnormality? noted on chest x-ray CT chest unremarkable, no further workup 6. Acute on Chronic kidney disease stage III/vasomotor nephropathy -milrinone and increase lasix dose should increase blood flow to the kidney renal consult Avoid nephrotoxic agents, continue diuresis History Interval history: Continues to have shortness of breath orthopnea and bilateral pedal edema Hospitalist Physical - Physical exam Narrative exam: General: Patient appears well in no distress HEENT: MMM, EOMI cardiac: S1-S2 heard lungs: Bibasilar crackles abdomen: soft, nontender, nondistended bowel sounds positive extremities: 2+ bipedal pitting edema Skin: no rash or lesion Neuro: no focal deficit Psych: appropriate behavior and mood, cognition intact - Constitutional Vitals: Temp Pulse Resp BP Pulse Ox 97.6 F 77 20 156/77 97 01/20/17 08:00 01/20/17 09:45 01/20/17 08:00 01/20/17 09:45 01/20/17 08:00 General appearance: Present: no acute distress Results - Labs CBC & Chem 7: 01/20/17 14:48 01/20/17 14:48 Labs: Laboratory Last Values WBC 6.9 K/mm3 (4.5-11.0) 01/18/17 04:44 RBC 4.14 M/mm3 (3.65-5.03) 01/18/17 04:44 Hgb 11.5 gm/dl (11.8-15.2) L 01/18/17 04:44 Hct 34.5 % (35.5-45.6) L 01/18/17 04:44 MCV 83 fl (84-94) L 01/18/17 04:44 MCH 28 pg (28-32) 01/18/17 04:44 MCHC 33 % (32-34) 01/18/17 04:44 RDW 16.7 % (13.2-15.2) H 01/18/17 04:44 Plt Count 184 K/mm3 (140-440) 01/18/17 04:44 Lymph % (Auto) 17.5 % (13.4-35.0) 01/18/17 04:44 [place] % (Auto) 14.0 % (0.0-7.3) H 01/18/17 04:44 Eos % (Auto) 1.9 % (0.0-4.3) 01/18/17 04:44 Baso % (Auto) 0.6 % (0.0-1.8) 01/18/17 04:44 Lymph # 1.2 K/mm3 (1.2-5.4) 01/18/17 04:44 [place] # 1.0 K/mm3 (0.0-0.8) H 01/18/17 04:44 Eos # 0.1 K/mm3 (0.0-0.4) 01/18/17 04:44 Baso # 0.0 K/mm3 (0.0-0.1) 01/18/17 04:44 Seg Neutrophils % 66.0 % (40.0-70.0) 01/18/17 04:44 Seg Neutrophils # 4.5 K/mm3 (1.8-7.7) 01/18/17 04:44 PT 13.6 Sec. (12.2-14.9) 01/17/17 18:26 INR 1.05 (0.87-1.13) 01/17/17 18:26 APTT 29.2 Sec. (24.2-36.6) 01/17/17 18:26 D-Dimer 985.51 ng/mlDDU (0-234) H 01/17/17 18:26 POC ABG pH 7.349 (7.35-7.45) L 01/17/17 18:13 POC ABG pCO2 38.3 (35-45) 01/17/17 18:13 POC ABG pO2 65 (80-105) L 01/17/17 18:13 POC ABG HCO3 21.1 01/17/17 18:13 POC ABG Total CO2 22 01/17/17 18:13 POC ABG O2 Sat 91 01/17/17 18:13 POC ABG Base Excess -5 01/17/17 18:13 FiO2 30 % 01/17/17 18:13 Sodium 143 mmol/L (137-145) 01/18/17 04:44 Potassium 3.9 mmol/L (3.6-5.0) 01/18/17 04:44 Chloride 107.5 mmol/L (98-107) H 01/18/17 04:44 Carbon Dioxide 22 mmol/L (22-30) 01/18/17 04:44 Anion Gap 17 mmol/L 01/18/17 04:44 BUN 21 mg/dL (9-20) H 01/18/17 04:44 Creatinine 1.9 mg/dL (0.8-1.5) H 01/18/17 04:44 Estimated GFR 45 ml/min 01/18/17 04:44 BUN/Creatinine Ratio 11.05 % 01/18/17 04:44 Glucose 128 mg/dL (75-100) H 01/18/17 04:44 POC Glucose 122 (70-105) H 01/19/17 21:32 Calcium 8.4 mg/dL (8.4-10.2) 01/18/17 04:44 Total Bilirubin 0.9 mg/dL (0.1-1.2) 01/17/17 18:26 AST 15 units/L (5-40) 01/17/17 18:26 ALT 13 units/L (7-56) 01/17/17 18:26 Alkaline Phosphatase 65 units/L (35-129) 01/17/17 18:26 Total Creatine Kinase 404 units/L (55-170) H 01/18/17 04:44 CK-MB (CK-2) 5.6 ng/mL (0.0-4.0) H 01/18/17 04:44 CK-MB (CK-2) Rel Index 1.3 (0-4) 01/18/17 04:44 Troponin T 0.134 ng/mL (0.00-0.029) H* 01/18/17 04:44 NT-Pro-B Natriuret Pep 5133 pg/mL (0-900) H 01/17/17 18:26 Total Protein 6.0 g/dL (6.3-8.2) L 01/17/17 18:26 Albumin 3.3 g/dL (3.9-5) L 01/17/17 18:26 Albumin/Globulin Ratio 1.2 % 01/17/17 18:26 Triglycerides 325 mg/dL (2-149) H 01/17/17 18:26 Cholesterol 243 mg/dL (50-199) H 01/17/17 18:26 LDL Cholesterol Direct 146 mg/dL (50-130) H 01/17/17 18:26 HDL Cholesterol 32 mg/dL (40-59) L 01/17/17 18:26 Cholesterol/HDL Ratio 7.59 % 01/17/17 18:26 Urine Color Yellow (Yellow) 01/18/17 15:45 Urine Turbidity Clear (Clear) 01/18/17 15:45 Urine pH 5.0 (5.0-7.0) 01/18/17 15:45 Ur Specific [place] 1.010 (1.003-1.030) 01/18/17 15:45 Urine Protein >500 mg/dL (Negative) 01/18/17 15:45 Urine Glucose (UA) 50 mg/dL (Negative) 01/18/17 15:45 Urine Ketones Neg mg/dL (Negative) 01/18/17 15:45 Urine Blood Sm (Negative) 01/18/17 15:45 Urine Nitrite Neg (Negative) 01/18/17 15:45 Urine Bilirubin Neg (Negative) 01/18/17 15:45 Urine Urobilinogen < 2.0 mg/dL (<2.0) 01/18/17 15:45 Ur Leukocyte Esterase Neg (Negative) 01/18/17 15:45 Urine WBC (Auto) 3.0 /HPF (0.0-6.0) 01/18/17 15:45 Urine RBC (Auto) 5.0 /HPF (0.0-6.0) 01/18/17 15:45 U Epithel Cells (Auto) < 1.0 /HPF (0-13.0) 01/18/17 15:45 Urine Opiates Screen Presumptive negative 01/18/17 15:45 Urine Methadone Screen Presumptive negative 01/18/17 15:45 Ur Barbiturates Screen Presumptive negative 01/18/17 15:45 Ur Phencyclidine Scrn Presumptive negative 01/18/17 15:45 Ur Amphetamines Screen Presumptive negative 01/18/17 15:45 U Benzodiazepines Scrn Presumptive negative 01/18/17 15:45 Urine Cocaine Screen Presumptive negative 01/18/17 15:45 U Marijuana (THC) Screen Presumptive negative 01/18/17 15:45 Drugs of Abuse Note Disclamer 01/18/17 15:45
[2017-01-20] MEDS: TYLENOL PO PRN (14:26)
[2017-01-20 15:42] LABS: Hematocrit 29.9 % (35.5-45.6); Hemoglobin 9.8 gm/dl (11.8-15.2); Mean Corpuscular HGB Conc 33 % (32-34); Mean Corpuscular Hemoglobin 27 pg (28-32); Mean Corpuscular Volume 84 fl (84-94); Platelet Count 141 K/mm3 (140-440); Red Blood Count 3.56 M/mm3 (3.65-5.03); Red Cell Distribution Width 16.8 % (13.2-15.2); White Blood Count 5.4 K/mm3 (4.5-11.0)
[2017-01-20 15:52] LABS: BUN/Creatinine Ratio 11.78; Calcium 7.9 mg/dL (8.4-10.2); Chloride 101.7 mmol/L (98-107); Potassium 4.5 mmol/L (3.6-5.0)
[2017-01-20] MEDS ORDERED: PRIMACOR 20 MG in D5W 80 ML IV SCH ×2 (18:00→23:00)
[2017-01-20] MEDS: LEVEMIR SUB-Q SCH (23:21)
[2017-01-21] MEDS: LASIX IV SCH ×2 (05:47→18:06)
[2017-01-21] MEDS: NOVOLOG SUB-Q SCH ×4 (07:25→21:43)
--- NOTE | 2017-01-21 09:47 | Progress Note ---
Assessment and Plan Assessment and plan: 51-year-old man history of hypertension, diabetes, CHF, hyperlipidemia, chronic kidney disease comes emergency room with complaints shortness of breath, PND and orthopnea, also lower extremity edema 1. Acute exacerbation of diastolic CHF Continue IV Lasix, optimize meds, patient has had a recent echo in June 2016 which showed preserved EF, followed cardiology consult. Low-salt diet, strict I 's and O's and daily weights PE has been ruled out by negative VQ scan -continue lasix 2. Accelerated hypertension Optimize medications, continue hydralazine when necessary 3. Acute hypoxic respiratory failure Continue oxygen supplementation 4. Diabetes Optimize insulins 5. Aortic knob abnormality? noted on chest x-ray CT chest unremarkable, no further workup 6. Acute on Chronic kidney disease stage III/vasomotor nephropathy =lasix dose should increase blood flow to the kidney renal consult Avoid nephrotoxic agents, continue diuresis History Interval history: Continues to have shortness of breath orthopnea and bilateral pedal edema Hospitalist Physical - Physical exam Narrative exam: General: Patient appears well in no distress HEENT: MMM, EOMI cardiac: S1-S2 heard lungs: Bibasilar crackles abdomen: soft, nontender, nondistended bowel sounds positive extremities: 2+ bipedal pitting edema Skin: no rash or lesion Neuro: no focal deficit Psych: appropriate behavior and mood, cognition intact - Constitutional Vitals: Temp Pulse Resp BP Pulse Ox 98.1 F 89 20 102/61 98 01/21/17 05:37 01/21/17 05:37 01/21/17 05:37 01/21/17 05:37 01/21/17 05:37 General appearance: Present: no acute distress Results - Labs CBC & Chem 7: 01/20/17 14:48 01/21/17 11:00 Labs: Laboratory Last Values WBC 5.4 K/mm3 (4.5-11.0) 01/20/17 14:48 RBC 3.56 M/mm3 (3.65-5.03) L 01/20/17 14:48 Hgb 9.8 gm/dl (11.8-15.2) L 01/20/17 14:48 Hct 29.9 % (35.5-45.6) L 01/20/17 14:48 MCV 84 fl (84-94) 01/20/17 14:48 MCH 27 pg (28-32) L 01/20/17 14:48 MCHC 33 % (32-34) 01/20/17 14:48 RDW 16.8 % (13.2-15.2) H 01/20/17 14:48 Plt Count 141 K/mm3 (140-440) 01/20/17 14:48 Lymph % (Auto) 17.5 % (13.4-35.0) 01/18/17 04:44 [place] % (Auto) 14.0 % (0.0-7.3) H 01/18/17 04:44 Eos % (Auto) 1.9 % (0.0-4.3) 01/18/17 04:44 Baso % (Auto) 0.6 % (0.0-1.8) 01/18/17 04:44 Lymph # 1.2 K/mm3 (1.2-5.4) 01/18/17 04:44 [place] # 1.0 K/mm3 (0.0-0.8) H 01/18/17 04:44 Eos # 0.1 K/mm3 (0.0-0.4) 01/18/17 04:44 Baso # 0.0 K/mm3 (0.0-0.1) 01/18/17 04:44 Seg Neutrophils % 66.0 % (40.0-70.0) 01/18/17 04:44 Seg Neutrophils # 4.5 K/mm3 (1.8-7.7) 01/18/17 04:44 PT 13.6 Sec. (12.2-14.9) 01/17/17 18:26 INR 1.05 (0.87-1.13) 01/17/17 18:26 APTT 29.2 Sec. (24.2-36.6) 01/17/17 18:26 D-Dimer 985.51 ng/mlDDU (0-234) H 01/17/17 18:26 POC ABG pH 7.349 (7.35-7.45) L 01/17/17 18:13 POC ABG pCO2 38.3 (35-45) 01/17/17 18:13 POC ABG pO2 65 (80-105) L 01/17/17 18:13 POC ABG HCO3 21.1 01/17/17 18:13 POC ABG Total CO2 22 01/17/17 18:13 POC ABG O2 Sat 91 01/17/17 18:13 POC ABG Base Excess -5 01/17/17 18:13 FiO2 30 % 01/17/17 18:13 Sodium 139 mmol/L (137-145) 01/20/17 14:48 Potassium 4.5 mmol/L (3.6-5.0) 01/20/17 14:48 Chloride 101.7 mmol/L (98-107) 01/20/17 14:48 Carbon Dioxide 25 mmol/L (22-30) 01/20/17 14:48 Anion Gap 17 mmol/L 01/20/17 14:48 BUN 33 mg/dL (9-20) H 01/20/17 14:48 Creatinine 2.8 mg/dL (0.8-1.5) H 01/20/17 14:48 Estimated GFR 29 ml/min 01/20/17 14:48 BUN/Creatinine Ratio 11.78 % 01/20/17 14:48 Glucose 146 mg/dL (75-100) H 01/20/17 14:48 POC Glucose 137 (70-105) H 01/20/17 21:58 Calcium 7.9 mg/dL (8.4-10.2) L 01/20/17 14:48 Total Bilirubin 0.9 mg/dL (0.1-1.2) 01/17/17 18:26 AST 15 units/L (5-40) 01/17/17 18:26 ALT 13 units/L (7-56) 01/17/17 18:26 Alkaline Phosphatase 65 units/L (35-129) 01/17/17 18:26 Total Creatine Kinase 404 units/L (55-170) H 01/18/17 04:44 CK-MB (CK-2) 5.6 ng/mL (0.0-4.0) H 01/18/17 04:44 CK-MB (CK-2) Rel Index 1.3 (0-4) 01/18/17 04:44 Troponin T 0.134 ng/mL (0.00-0.029) H* 01/18/17 04:44 NT-Pro-B Natriuret Pep 5133 pg/mL (0-900) H 01/17/17 18:26 Total Protein 6.0 g/dL (6.3-8.2) L 01/17/17 18:26 Albumin 3.3 g/dL (3.9-5) L 01/17/17 18:26 Albumin/Globulin Ratio 1.2 % 01/17/17 18:26 Triglycerides 325 mg/dL (2-149) H 01/17/17 18:26 Cholesterol 243 mg/dL (50-199) H 01/17/17 18:26 LDL Cholesterol Direct 146 mg/dL (50-130) H 01/17/17 18:26 HDL Cholesterol 32 mg/dL (40-59) L 01/17/17 18:26 Cholesterol/HDL Ratio 7.59 % 01/17/17 18:26 Urine Color Yellow (Yellow) 01/18/17 15:45 Urine Turbidity Clear (Clear) 01/18/17 15:45 Urine pH 5.0 (5.0-7.0) 01/18/17 15:45 Ur Specific [place] 1.010 (1.003-1.030) 01/18/17 15:45 Urine Protein >500 mg/dL (Negative) 01/18/17 15:45 Urine Glucose (UA) 50 mg/dL (Negative) 01/18/17 15:45 Urine Ketones Neg mg/dL (Negative) 01/18/17 15:45 Urine Blood Sm (Negative) 01/18/17 15:45 Urine Nitrite Neg (Negative) 01/18/17 15:45 Urine Bilirubin Neg (Negative) 01/18/17 15:45 Urine Urobilinogen < 2.0 mg/dL (<2.0) 01/18/17 15:45 Ur Leukocyte Esterase Neg (Negative) 01/18/17 15:45 Urine WBC (Auto) 3.0 /HPF (0.0-6.0) 01/18/17 15:45 Urine RBC (Auto) 5.0 /HPF (0.0-6.0) 01/18/17 15:45 U Epithel Cells (Auto) < 1.0 /HPF (0-13.0) 01/18/17 15:45 Urine Opiates Screen Presumptive negative 01/18/17 15:45 Urine Methadone Screen Presumptive negative 01/18/17 15:45 Ur Barbiturates Screen Presumptive negative 01/18/17 15:45 Ur Phencyclidine Scrn Presumptive negative 01/18/17 15:45 Ur Amphetamines Screen Presumptive negative 01/18/17 15:45 U Benzodiazepines Scrn Presumptive negative 01/18/17 15:45 Urine Cocaine Screen Presumptive negative 01/18/17 15:45 U Marijuana (THC) Screen Presumptive negative 01/18/17 15:45 Drugs of Abuse Note Disclamer 01/18/17 15:45
[2017-01-21] MEDS: LOVENOX SUB-Q SCH (10:00)
--- NOTE | 2017-01-21 10:30 | Consultation ---
History of Present Illness - Reason for Consult Consult date: 01/21/17 acute renal failure, chronic renal failure, other (volume overload) - History of Present Illness Patient is a 51-year-old AAM with history of Obesity, Hypertension, Type 2 DM, Diastolic CHF, Hyperlipidemia, Nephrotic range proteinuria and Chronic kidney disease stage 3 came to the emergency room with complaints shortness of breath, PND, orthopnea and bilateral lower extremity edema. Patient stated he is compliant with diet and medications. He is followed by any physician at this time. His initial BP was 229/130. He is being treated for anasarca with diuresis. His baseline creatinine is around 2 and his creatinine was 2.8 yesterday. Patient denies chest pain, palpitation, cough, abdominal pain, hematuria, dysuria, fever chills, hemoptysis, dizziness or syncope. Past History Past Medical History: anemia, diabetes, heart failure, hypertension, hyperlipidemia, renal failure Medications and Allergies Allergies Allergy/AdvReac Type Severity Reaction Status Date / Time peach Allergy Unknown Swelling Verified 07/10/16 20:59 Home Medications Medication Instructions Recorded Confirmed Last Taken Type Furosemide [Lasix TAB] 40 mg PO QDAY 01/17/17 01/17/17 Unknown History Hydralazine HCl [Apresoline TAB] 40 mg PO DAILY 01/17/17 01/17/17 Unknown History Insulin Glargine [Lantus VIAL] 15 units SUB-Q QHS 01/17/17 01/17/17 Unknown History Labetalol [Normodyne TAB] 200 mg PO TID 01/17/17 01/17/17 Unknown History NIFEdipine XL [Procardia Xl] 90 mg PO DAILY 01/17/17 01/17/17 Unknown History Active Meds: Active Medications Acetaminophen (Tylenol) 650 mg PO Q4H PRN PRN Reason: Pain MILD(1-3)/Fever >100.5/RAYMUNDO Last Admin: 01/20/17 14:26 Dose: 650 mg Albuterol (Proventil) 2.5 mg IH Q3HRT PRN PRN Reason: Shortness Of Breath Aspirin (Aspirin) 325 mg PO QDAY [facility] Last Admin: 01/20/17 09:44 Dose: 325 mg Bisacodyl (Dulcolax) 10 mg RI QDAY PRN PRN Reason: Constipation unrelieved by MOM Dextrose (D50w (25gm)) 50 ml IV PRN PRN PRN Reason: Hypoglycemia Enoxaparin Sodium (Lovenox) 40 mg SUB-Q QDAY@1000 [facility] Last Admin: 01/20/17 09:44 Dose: 40 mg Furosemide (Lasix) 80 mg IV BID@0600,1800 [facility] Stop: 01/23/17 06:01 Last Admin: 01/21/17 05:47 Dose: 80 mg Hydralazine HCl (Apresoline) 5 mg IV Q6H PRN PRN Reason: Hypertension Last Admin: 01/18/17 12:18 Dose: 5 mg Milrinone Lactate 20 mg/ (Dextrose) 100 mls @ 2.06 mls/hr IV DIRECT [facility] PRN Reason: 0.0625 MCG/KG/MIN Last Admin: 01/20/17 23:47 Dose: 0.0625 mcg/kg/min, 2.06 mls/hr Insulin Aspart (Novolog) 0 units SUB-Q ACHS [facility] PRN Reason: Protocol Last Admin: 01/20/17 23:21 Dose: Not Given Insulin Detemir (Levemir) 15 units SUB-Q QHS [facility] Last Admin: 01/20/17 23:21 Dose: Not Given Labetalol HCl (Normodyne) 200 mg PO TID [facility] Last Admin: 01/20/17 23:06 Dose: Not Given Lisinopril (Zestril) 40 mg PO QDAY [facility] Last Admin: 01/20/17 09:45 Dose: 40 mg Magnesium Hydroxide (Milk Of Magnesia) 30 ml PO Q4H PRN PRN Reason: Constipation Nifedipine (Procardia Xl) 90 mg PO DAILY [facility] Last Admin: 01/20/17 09:44 Dose: 90 mg Ondansetron HCl (Zofran) 4 mg IV Q8H PRN PRN Reason: N/V unrelieved by Reglan Review of Systems Constitutional: no weight loss, no weight gain, no fever, no chills, no anorexia , no weakness, no poor appetite Ears, nose, mouth and throat: no sinus pressure, no sinus pain, no epistaxis Cardiovascular: orthopnea, edema, shortness of breath, dyspnea on exertion, high blood pressure, leg edema, no chest pain, no syncope, no lightheadedness Respiratory: shortness of breath, dyspnea on exertion, no cough, no cough with sputum, no hemoptysis Gastrointestinal: no abdominal pain, no nausea, no vomiting, no BRBPR, no melena Genitourinary Male: no dysuria, no hematuria Rectal: no bleeding Musculoskeletal: no neck stiffness, no neck pain, no redness of joints Integumentary: no rash, no sores, no jaundice Neurological: no paralysis, no seizures, no syncope Psychiatric: no disorientation, no hallucinations Endocrine: no polydipsia, no polyuria Hematologic/Lymphatic: no easy bruising, no easy bleeding Exam - Vital Signs Vital signs: Vital Signs Pulse Resp Pulse Ox 79 14 100 01/17/17 15:50 01/17/17 15:50 01/17/17 15:50 - General Appearance General appearance: well-developed, well-nourished, appears stated age, obese, other (no distress) EENT: ATNC, PERRL, mucous membranes moist, hearing intact, vision intact Neck: Present: neck supple Respiratory: Clear to Ascultation Heart: regular, S1S2, no murmurs Gastrointestinal: Present: normoactive bowel sounds, obese. Absent: tenderness , distended Integumentary: no rash, warm and dry Neurologic: no focal deficit, no asterixis, alert and oriented x3, CN 3-12 intact Musculoskeletal: Present: other (2+ edema of both LEs noted) Psychiatric: mood/affect appropriate, cooperative Results - Lab Results 01/20/17 14:48 01/21/17 11:00 Most recent lab results Calcium 7.9 mg/dL (8.4-10.2) L 01/20/17 14:48 - Image Kidney/bladder ultrasound: other Assessment and Plan - Patient Problems (1) Acute kidney injury Current Visit: No Status: Acute Plan to address problem: Acute kidney Injury superimposed on CKD stage 3 is hemodynamically mediated in the setting of fluctuation in the BP. Continue current treatment. BP is well controlled now. Monitor renal function. (2) Chronic kidney disease, stage 3 (moderate) Current Visit: Yes Status: Chronic Plan to address problem: CKD is likely from combination of DM, HTN and CHF. (3) Proteinuria Current Visit: Yes Status: Chronic Plan to address problem: Patient was found to have Nephrotic range proteinuria with positive FRANK. Suspected Lupus. Discussed with patient regarding Renal biopsy to r/o Lupus Nephritis. He wants to think about it. (4) Acute on chronic diastolic CHF (congestive heart failure) Current Visit: No Status: Acute Plan to address problem: Followed by Cards. (5) Volume overload Current Visit: Yes Status: Chronic Qualifiers: Hypervolemia type: H Plan to address problem: Continue IV Lasix. Add Metolazone. (6) Hypertensive urgency Current Visit: Yes Status: Acute Plan to address problem: BP is better now.
[2017-01-21] MEDS: ZESTRIL PO SCH (10:32)
[2017-01-21] MEDS: ASPIRIN PO SCH (10:33)
--- NOTE | 2017-01-21 10:50 | Progress Note ---
Assessment and Plan Anasarca Chronic CHF, diastolic normal LVEF, severe LVH on echo 06/2016 Systemic Hypertension Chronic kidney disease Nephrotic range proteinuria Elevated troponin, chronic Hyperlipidemia Hx of DVT -previously on eliquis [facility] at [facility] 2012 reports no significant coronary disease. Normal MPI 12/2015 Subjective Date of service: 01/21/17 Interval history: Patient has no complaints. Still with severe LE edema. Initiated on IV milrinone by primary team. Objective Vital Signs Temp Pulse Pulse Pulse Pulse Resp BP 01/21/17 09:53 98.4 F 94 H 18 01/21/17 05:37 98.1 F 89 20 01/21/17 01:19 97.4 F L 82 20 01/20/17 22:00 84 20 139/85 01/20/17 21:10 98 F 84 19 01/20/17 16:30 97.9 F 80 18 01/20/17 15:26 16 01/20/17 15:19 84 01/20/17 14:26 84 16 139/85 01/20/17 12:00 98.1 F 84 18 BP Pulse Ox 01/21/17 09:53 142/77 94 01/21/17 05:37 102/61 98 01/21/17 01:19 120/63 97 01/20/17 22:00 98 01/20/17 21:10 113/67 95 01/20/17 16:30 117/72 96 01/20/17 15:26 01/20/17 15:19 01/20/17 14:26 01/20/17 12:00 139/85 98 - Physical Examination General: No Apparent Distress HEENT: Positive: PERRL Neck: Positive: neck supple Cardiac: Positive: Reg Rate and Rhythm Lungs: Positive: Decreased Breath Sounds Neuro: Positive: Grossly Intact Extremities: Present: +3 Edema - Labs and Meds CBC 01/20/17 Range/Units 14:48 WBC 5.4 (4.5-11.0) K/mm3 RBC 3.56 L (3.65-5.03) M/mm3 Hgb 9.8 L (11.8-15.2) gm/dl Hct 29.9 L (35.5-45.6) % Plt Count 141 (140-440) K/mm3 Comprehensive Metabolic Panel 01/20/17 Range/Units 14:48 Sodium 139 (137-145) mmol/L Potassium 4.5 (3.6-5.0) mmol/L Chloride 101.7 (98-107) mmol/L Carbon Dioxide 25 (22-30) mmol/L BUN 33 H (9-20) mg/dL Creatinine 2.8 H (0.8-1.5) mg/dL Glucose 146 H (75-100) mg/dL Calcium 7.9 L (8.4-10.2) mg/dL - Imaging and Cardiology EKG: image reviewed
[2017-01-21 11:53] LABS: BUN/Creatinine Ratio 13.7; Calcium 8.6 mg/dL (8.4-10.2); Chloride 102.8 mmol/L (98-107); Potassium 4.4 mmol/L (3.6-5.0)
[2017-01-21] MEDS: NORMODYNE PO SCH ×3 (12:22→21:48)
[2017-01-21] MEDS: PROCARDIA XL PO SCH (12:23)
[2017-01-21] MEDS: LEVEMIR SUB-Q SCH (21:48)
[2017-01-22] MEDS: LASIX IV SCH ×2 (05:53→17:18)
[2017-01-22 06:08] LABS: Phosphorous 5.1 mg/dL (2.5-4.5)
[2017-01-22] MEDS: NOVOLOG SUB-Q SCH ×4 (08:03→22:06)
[2017-01-22 09:45] LABS: BUN/Creatinine Ratio 15.21; Calcium 8.9 mg/dL (8.4-10.2); Chloride 100.2 mmol/L (98-107); Potassium 4.1 mmol/L (3.6-5.0)
[2017-01-22] MEDS: LOVENOX SUB-Q SCH (09:52)
[2017-01-22] MEDS: ZAROXOLYN PO SCH (09:52)
[2017-01-22] MEDS: ASPIRIN PO SCH (09:52)
[2017-01-22] MEDS: PROCARDIA XL PO SCH (09:53)
[2017-01-22] MEDS: ZESTRIL PO SCH (09:53)
[2017-01-22] MEDS: NORMODYNE PO SCH ×3 (09:53→22:25)
--- NOTE | 2017-01-22 10:09 | Progress Note ---
Assessment and Plan 51-year-old man history of hypertension, diabetes, CHF, hyperlipidemia, chronic kidney disease comes emergency room with complaints shortness of breath, PND and orthopnea, also lower extremity edema. Acute exacerbation of diastolic CHF -Continue IV Lasix, optimize meds, patient has had a recent echo in June 2016 which showed preserved EF, followed cardiology consult. -Low-salt diet, strict I's and O's and daily weights -PE has been ruled out by negative VQ scan -continue lasix and metolazone Accelerated hypertension - Optimize medications, continue hydralazine when necessary - change procardia to 60 BID Acute hypoxic respiratory failure - Continue oxygen supplementation as needed - Likely from diastolic heart failure Diabetes mellitus type II - Optimize insulins Aortic knob abnormality? noted on chest x-ray - CT chest unremarkable, no further workup Acute on Chronic kidney disease stage III/vasomotor nephropathy - Nephrology following, currently on Lasix and metolazone - Avoid nephrotoxic agents, monitor renal function Subjective Date of service: 01/22/17 Interval history: Patient seen and examined. Medical records and medication list reviewed. No acute event overnight noted by the RN. Patient denies any chest pain or difficulty breathing. Patient is tolerating diet. Still has significant bilateral lower extremity edema and swelling Discussed plan of care at bedside with patient. Objective - Exam Narrative Exam: GENERAL: well-developed and well-nourished with [place] Citizen male lying on bed appeared to be in no discomfort. HEENT: Normocephalic. Atraumatic. No conjunctival congestion or icterus. Patient has moist mucous membranes. NECK: Supple. Trachea midline. CHEST/LUNGS: Few crackles auscultated bilaterally, breathing nonlabored. No wheezes or rhonchi. HEART/CARDIOVASCULAR: Regular in rate and rhythm. S1 and S2 positive. ABDOMEN: Abdomen is soft, nontender. Patient has normal bowel sounds. SKIN: There is no rash. Warm and dry. NEURO: No focal motor deficit. Follows command. MUSCULOSKELETAL: No joint effusion or tenderness. EXTRIMITY: 2+ pedal edema, no cyanosis or clubbing. PSYCH: Cooperative. - Constitutional Vitals: Vital Signs - 12hr 01/22/17 01/22/17 01/22/17 00:35 01:00 05:00 Temperature 99.0 F 99.0 F Pulse Rate 90 Pulse Rate [ 84 87 Right Dorsalis Pedis] Pulse Rate [ Right] Respiratory Rate Blood Pressure 154/86 151/74 [Right Radial Artery] O2 Sat by Pulse 99 Oximetry 01/22/17 01/22/17 01/22/17 08:00 08:39 08:56 Temperature 98.1 F Pulse Rate 70 Pulse Rate [ Right Dorsalis Pedis] Pulse Rate [ 83 Right] Respiratory 20 Rate Blood Pressure 175/86 [Right Radial Artery] O2 Sat by Pulse 98 98 Oximetry - Labs CBC & Chem 7: 01/20/17 14:48 01/22/17 05:03 Labs: Abnormal lab results 01/20/17 01/20/17 01/21/17 Range/Units 12:17 16:05 08:56 BUN (9-20) mg/dL Creatinine (0.8-1.5) mg/dL Glucose (75-100) mg/dL POC Glucose 137 H 134 H 198 H (70-105) Phosphorus (2.5-4.5) mg/dL 01/21/17 01/21/17 01/21/17 Range/Units 11:00 11:37 13:04 BUN 37 H (9-20) mg/dL Creatinine 2.7 H (0.8-1.5) mg/dL Glucose 158 H (75-100) mg/dL POC Glucose 171 H 138 H (70-105) Phosphorus (2.5-4.5) mg/dL 01/21/17 01/21/17 01/22/17 Range/Units 17:10 21:16 05:03 BUN 35 H (9-20) mg/dL Creatinine 2.3 H (0.8-1.5) mg/dL Glucose 108 H (75-100) mg/dL POC Glucose 146 H 135 H (70-105) Phosphorus (2.5-4.5) mg/dL 01/22/17 Range/Units 05:03 BUN (9-20) mg/dL Creatinine (0.8-1.5) mg/dL Glucose (75-100) mg/dL POC Glucose (70-105) Phosphorus 5.10 H (2.5-4.5) mg/dL
--- NOTE | 2017-01-22 11:38 | Progress Note ---
Assessment and Plan Anasarca Chronic CHF, diastolic normal LVEF, severe LVH on echo 06/2016 Systemic Hypertension Chronic kidney disease Nephrotic range proteinuria Elevated troponin, chronic Hyperlipidemia Hx of DVT -previously on eliquis [facility] at [facility] 2012 reports no significant coronary disease. Normal MPI 12/2015 Recommendations: Continue IV Diuretics as per nephrology. Optimal blood pressure control. Dietary salt restriction. Daily weight. Subjective Date of service: 01/22/17 Interval history: Patient denies chest pain. Weight down to 106kg from 110 on admission. Objective Vital Signs Temp Pulse Pulse Pulse Pulse Resp Resp 01/22/17 10:00 83 20 20 01/22/17 08:56 01/22/17 08:39 98.1 F 83 20 01/22/17 08:00 70 01/22/17 05:00 99.0 F 87 01/22/17 01:00 99.0 F 84 01/22/17 00:35 90 01/21/17 20:00 97.8 F 88 18 01/21/17 18:18 98.1 F 63 18 Resp BP Pulse Ox 01/22/17 10:00 20 98 01/22/17 08:56 98 01/22/17 08:39 175/86 98 01/22/17 08:00 01/22/17 05:00 151/74 99 01/22/17 01:00 154/86 01/22/17 00:35 01/21/17 20:00 147/80 99 01/21/17 18:18 161/86 98 - Physical Examination General: No Apparent Distress HEENT: Positive: PERRL Neck: Positive: neck supple Cardiac: Positive: Reg Rate and Rhythm Lungs: Positive: Decreased Breath Sounds Neuro: Positive: Grossly Intact Extremities: Present: +3 Edema - Labs and Meds Comprehensive Metabolic Panel 01/21/17 01/22/17 Range/Units 11:00 05:03 Sodium 142 139 (137-145) mmol/L Potassium 4.4 4.1 (3.6-5.0) mmol/L Chloride 102.8 100.2 (98-107) mmol/L Carbon Dioxide 25 26 (22-30) mmol/L BUN 37 H 35 H (9-20) mg/dL Creatinine 2.7 H 2.3 H (0.8-1.5) mg/dL Glucose 158 H 108 H (75-100) mg/dL Calcium 8.6 8.9 (8.4-10.2) mg/dL - Imaging and Cardiology EKG: image reviewed
[2017-01-22] MEDS ORDERED: PROCARDIA XL PO SCH (22:00)
--- NOTE | 2017-01-22 22:03 | Progress Note ---
Assessment and Plan - Patient Problems (1) Acute kidney injury Current Visit: No Status: Acute Plan to address problem: Acute kidney Injury superimposed on CKD stage 3 is hemodynamically mediated in the setting of fluctuation in the BP. Creatinine is improving. Monitor renal function. (2) Chronic kidney disease, stage 3 (moderate) Current Visit: Yes Status: Chronic Plan to address problem: CKD is likely from combination of DM, HTN and CHF. (3) Proteinuria Current Visit: Yes Status: Chronic Qualifiers: Proteinuria type: P Isolated proteinuria type: I Trimester: T Plan to address problem: Patient was found to have Nephrotic range proteinuria with positive FRANK. Suspected Lupus. Patient is on Aspirin and hence will not be able to do kidney biopsy at this time. Need to schedule as outpatient, if the patient is willing. (4) Acute on chronic diastolic CHF (congestive heart failure) Current Visit: No Status: Acute Plan to address problem: Followed by Cards. (5) Volume overload Current Visit: Yes Status: Chronic Qualifiers: Hypervolemia type: H Plan to address problem: Continue IV Lasix and PO Metolazone. Diuresing well. (6) Hypertensive urgency Current Visit: Yes Status: Acute Plan to address problem: BP is better now. Subjective Date of service: 01/22/17 Interval history: Patient is feeling better. Objective - Vital Signs Vital signs: Vital Signs - 12hr 01/22/17 01/22/17 01/22/17 12:52 13:33 15:43 Temperature 98.0 F Pulse Rate 78 Pulse Rate [ Right Dorsalis Pedis] Pulse Rate [ 82 Right] Respiratory 20 Rate Blood Pressure 163/96 Blood Pressure 167/92 [Right Radial Artery] O2 Sat by Pulse 99 Oximetry 01/22/17 01/22/17 01/22/17 17:21 20:17 20:52 Temperature 98.4 F 98.3 F Pulse Rate Pulse Rate [ 81 Right Dorsalis Pedis] Pulse Rate [ 81 Right] Respiratory 20 20 Rate Blood Pressure Blood Pressure 131/73 147/87 [Right Radial Artery] O2 Sat by Pulse 98 97 99 Oximetry - General Appearance General appearance: well-developed, well-nourished, appears stated age, obese, other (no distress) EENT: ATNC, PERRL, mucous membranes moist, hearing intact, vision intact Neck: supple Respiratory: Present: Rales Cardiology: regular, S1S2, no murmurs Gastrointestinal: normoactive bowel sounds, no tenderness, no distended, obese Integumentary: no rash Neurologic: no focal deficit, no asterixis, alert and oriented x3 Musculoskeletal: other (2+ edema of both LEs noted) Psychiatric: mood/affect appropriate, cooperative - Lab 01/20/17 14:48 01/23/17 10:30 Most recent lab results Calcium 8.9 mg/dL (8.4-10.2) 01/22/17 05:03 Phosphorus 5.10 mg/dL (2.5-4.5) H 01/22/17 05:03 Magnesium 2.00 mg/dL (1.7-2.3) 01/22/17 05:03
[2017-01-22] MEDS: LEVEMIR SUB-Q SCH (22:25)
[2017-01-23] MEDS: LASIX IV SCH (05:39)
[2017-01-23] MEDS: NOVOLOG SUB-Q SCH ×4 (08:47→21:48)
[2017-01-23] MEDS: NORMODYNE PO SCH ×3 (08:48→21:48)
[2017-01-23] MEDS: PROCARDIA XL PO SCH (09:44)
[2017-01-23] MEDS: ASPIRIN PO SCH (09:44)
[2017-01-23] MEDS: ZAROXOLYN PO SCH (09:44)
[2017-01-23] MEDS: ZESTRIL PO SCH (09:45)
[2017-01-23] MEDS: LOVENOX SUB-Q SCH (09:45)
--- NOTE | 2017-01-23 10:08 | Progress Note ---
Assessment and Plan 51-year-old man history of hypertension, diabetes, CHF, hyperlipidemia, chronic kidney disease comes emergency room with complaints shortness of breath, PND and orthopnea, also lower extremity edema. Acute exacerbation of diastolic CHF -Continue IV Lasix, optimize meds, patient has had a recent echo in June 2016 which showed preserved EF, followed cardiology consult. -Low-salt diet, strict I's and O's and daily weights -PE has been ruled out by negative VQ scan -continue lasix and metolazone Accelerated hypertension - Optimize medications, continue hydralazine when necessary - change procardia to 60 BID - BP better improved today Acute hypoxic respiratory failure - Continue oxygen supplementation as needed - Likely from diastolic heart failure Diabetes mellitus type II - Optimize insulins as needed Aortic knob abnormality? noted on chest x-ray - CT chest unremarkable, no further workup Acute on Chronic kidney disease stage III/vasomotor nephropathy - Nephrology following, currently on Lasix and metolazone - Avoid nephrotoxic agents, monitor renal function - renal function improving slowly Subjective Date of service: 01/23/17 Interval history: Patient seen and examined. Medical records and medication list reviewed. No acute event overnight noted by the RN. Patient denies any chest pain or difficulty breathing. Patient is tolerating diet. Still has significant bilateral lower extremity edema and swelling Discussed plan of care at bedside with patient. Objective - Exam Narrative Exam: GENERAL: well-developed and well-nourished with [place] male lying on bed appeared to be in no discomfort. HEENT: Normocephalic. Atraumatic. No conjunctival congestion or icterus. Patient has moist mucous membranes. NECK: Supple. Trachea midline. CHEST/LUNGS: Few crackles auscultated bilaterally, breathing nonlabored. No wheezes or rhonchi. HEART/CARDIOVASCULAR: Regular in rate and rhythm. S1 and S2 positive. ABDOMEN: Abdomen is soft, nontender. Patient has normal bowel sounds. SKIN: There is no rash. Warm and dry. NEURO: No focal motor deficit. Follows command. MUSCULOSKELETAL: No joint effusion or tenderness. EXTRIMITY: 2+ pedal edema, no cyanosis or clubbing. PSYCH: Cooperative. - Constitutional Vitals: Vital Signs - 12hr 01/23/17 01/23/17 01/23/17 00:19 04:45 07:50 Temperature 98.9 F 98.7 F 98.2 F Pulse Rate Pulse Rate [ 84 74 81 Right Dorsalis Pedis] Pulse Rate [ Right] Respiratory 18 20 20 Rate Respiratory Rate [Chest] Respiratory Rate [Head] Blood Pressure 149/70 138/64 170/89 [Right Radial Artery] O2 Sat by Pulse 100 98 98 Oximetry 01/23/17 01/23/17 09:01 09:02 Temperature Pulse Rate 68 Pulse Rate [ 67 Right Dorsalis Pedis] Pulse Rate [ 67 Right] Respiratory 18 20 Rate Respiratory 20 Rate [Chest] Respiratory 16 Rate [Head] Blood Pressure [Right Radial Artery] O2 Sat by Pulse 98 98 Oximetry - Labs CBC & Chem 7: 01/20/17 14:48 01/23/17 10:30 Labs: Abnormal lab results 01/22/17 01/22/17 Range/Units 17:00 21:19 POC Glucose 130 H 127 H (70-105)
--- NOTE | 2017-01-23 10:59 | Progress Note ---
Assessment and Plan Anasarca Chronic CHF, diastolic normal LVEF, severe LVH on echo 06/2016 Systemic Hypertension Chronic kidney disease Nephrotic range proteinuria Elevated troponin, chronic Hyperlipidemia Hx of DVT -previously on eliquis [facility] at [facility] 2012 reports no significant coronary disease. Normal MPI 12/2015 Recommendations: Continue IV Diuretics as per nephrology. Optimal blood pressure control. Dietary salt restriction. Daily weight. Subjective Date of service: 01/23/17 Interval history: Edema slowly improving. Patient still with shortness of breath on exertion. Objective Vital Signs Temp Pulse Pulse Pulse Resp Resp Resp 01/23/17 09:02 67 67 20 20 16 01/23/17 09:01 68 18 01/23/17 07:50 98.2 F 81 20 01/23/17 04:45 98.7 F 74 20 01/23/17 00:19 98.9 F 84 18 01/22/17 22:08 82 01/22/17 20:52 01/22/17 20:17 98.3 F 81 20 01/22/17 17:21 98.4 F 81 20 01/22/17 15:43 78 01/22/17 13:33 01/22/17 12:52 98.0 F 82 20 BP BP Pulse Ox 01/23/17 09:02 98 01/23/17 09:01 98 01/23/17 07:50 170/89 98 01/23/17 04:45 138/64 98 01/23/17 00:19 149/70 100 01/22/17 22:08 01/22/17 20:52 99 01/22/17 20:17 147/87 97 01/22/17 17:21 131/73 98 01/22/17 15:43 01/22/17 13:33 163/96 01/22/17 12:52 167/92 99 - Physical Examination General: No Apparent Distress HEENT: Positive: PERRL Neck: Positive: neck supple Cardiac: Positive: Reg Rate and Rhythm Lungs: Positive: Decreased Breath Sounds Neuro: Positive: Grossly Intact Extremities: Present: +3 Edema - Imaging and Cardiology EKG: image reviewed
[2017-01-23 11:17] LABS: BUN/Creatinine Ratio 14.61; Calcium 8.9 mg/dL (8.4-10.2); Chloride 97.1 mmol/L (98-107); Potassium 4.4 mmol/L (3.6-5.0)
--- NOTE | 2017-01-23 17:24 | Progress Note ---
Assessment and Plan - Patient Problems (1) Acute kidney injury Current Visit: No Status: Acute Plan to address problem: Acute kidney Injury superimposed on CKD stage 3 is hemodynamically mediated in the setting of fluctuation in the BP. Slight increase in creatinine since yesterday. Monitor renal function. (2) Chronic kidney disease, stage 3 (moderate) Current Visit: Yes Status: Chronic Plan to address problem: CKD is likely from combination of DM, HTN and CHF. (3) Proteinuria Current Visit: Yes Status: Chronic Qualifiers: Proteinuria type: P Isolated proteinuria type: I Trimester: T Plan to address problem: Patient was found to have Nephrotic range proteinuria with positive FRANK. Suspected Lupus. Patient is on Aspirin and hence will not be able to do kidney biopsy at this time. (4) Acute on chronic diastolic CHF (congestive heart failure) Current Visit: No Status: Acute Plan to address problem: Followed by Cards. (5) Volume overload Current Visit: Yes Status: Chronic Qualifiers: Hypervolemia type: H Plan to address problem: Restart Lasix. Continue Metolazone. Diuresing well. (6) Hypertensive urgency Current Visit: Yes Status: Acute Plan to address problem: BP is better now. Subjective Date of service: 01/23/17 Interval history: Patient is feeling better. Objective - Vital Signs Vital signs: Vital Signs - 12hr 01/23/17 01/23/17 01/23/17 07:50 09:01 09:02 Temperature 98.2 F Pulse Rate 68 Pulse Rate [ 81 67 Right Dorsalis Pedis] Pulse Rate [ 67 Right] Respiratory 20 18 20 Rate Respiratory 20 Rate [Chest] Respiratory 16 Rate [Head] Blood Pressure Blood Pressure 170/89 [Right Radial Artery] O2 Sat by Pulse 98 98 98 Oximetry 01/23/17 01/23/17 01/23/17 10:00 11:30 14:00 Temperature 98.0 F Pulse Rate Pulse Rate [ 81 Right Dorsalis Pedis] Pulse Rate [ Right] Respiratory 20 Rate Respiratory 210 H Rate [Chest] Respiratory 20 Rate [Head] Blood Pressure 179/92 Blood Pressure 179/92 [Right Radial Artery] O2 Sat by Pulse 98 Oximetry - General Appearance General appearance: well-developed, well-nourished, appears stated age, obese, other (no distress) EENT: ATNC, PERRL, mucous membranes moist, hearing intact, vision intact Neck: supple Respiratory: Present: Rales Cardiology: regular, S1S2, no murmurs Gastrointestinal: normoactive bowel sounds, no tenderness, no distended, obese Integumentary: no rash Neurologic: no focal deficit, no asterixis, alert and oriented x3, CN 3-12 intact Musculoskeletal: other (2+ edema of both LEs noted) Psychiatric: cooperative - Lab 01/20/17 14:48 01/23/17 10:30 Most recent lab results Calcium 8.9 mg/dL (8.4-10.2) 01/23/17 10:30 Phosphorus 5.10 mg/dL (2.5-4.5) H 01/22/17 05:03 Magnesium 2.00 mg/dL (1.7-2.3) 01/22/17 05:03
[2017-01-23] MEDS: LASIX PO SCH (17:46)
[2017-01-23] MEDS: LEVEMIR SUB-Q SCH (21:48)
[2017-01-24] MEDS: LASIX PO SCH (06:22)
[2017-01-24] MEDS: NOVOLOG SUB-Q SCH ×2 (08:00→12:01)
[2017-01-24 08:43] LABS: BUN/Creatinine Ratio 15.76; Calcium 9.1 mg/dL (8.4-10.2)
[2017-01-24 08:44] LABS: Chloride 97.4 mmol/L (98-107); Potassium 4.3 mmol/L (3.6-5.0)
[2017-01-24] MEDS: PROCARDIA XL PO SCH (09:48)
[2017-01-24] MEDS: ZESTRIL PO SCH (09:48)
[2017-01-24] MEDS: ZAROXOLYN PO SCH (09:48)
[2017-01-24] MEDS: ASPIRIN PO SCH (09:48)
[2017-01-24] MEDS: LOVENOX SUB-Q SCH (09:48)
[2017-01-24] MEDS: NORMODYNE PO SCH (09:55)
--- NOTE | 2017-01-24 10:11 | Progress Note ---
Assessment and Plan Anasarca Chronic CHF, diastolic normal LVEF, severe LVH on echo 06/2016 Systemic Hypertension Chronic kidney disease Nephrotic range proteinuria Elevated troponin, chronic Hyperlipidemia Hx of DVT -previously on eliquis [facility] at [facility] 2012 reports no significant coronary disease. Normal MPI 12/2015 Recommendations: Nephrology managing diuretic dosing given underlying renal insufficiency. Optimal blood pressure control. Dietary salt restriction. Daily weight. Otherwise, conservative cardiac management. Subjective Date of service: 01/24/17 Interval history: Patient reports shortness of breath is less. Bilateral LE edema is improving. Objective Vital Signs Temp Pulse Pulse Pulse Pulse Resp BP 01/24/17 09:43 01/24/17 08:41 98.2 F 80 18 01/24/17 04:00 98.4 F 85 18 01/24/17 01:26 83 01/23/17 23:45 98.1 F 80 18 01/23/17 21:52 78 18 01/23/17 21:48 153/88 01/23/17 20:52 01/23/17 20:00 98.3 F 82 18 01/23/17 16:15 98.3 F 84 20 01/23/17 14:00 179/92 01/23/17 11:30 98.0 F 81 20 BP Pulse Ox 01/24/17 09:43 99 01/24/17 08:41 131/86 94 01/24/17 04:00 154/91 97 01/24/17 01:26 01/23/17 23:45 143/72 99 01/23/17 21:52 01/23/17 21:48 01/23/17 20:52 99 01/23/17 20:00 153/88 97 01/23/17 16:15 139/73 98 01/23/17 14:00 01/23/17 11:30 179/92 98 - Physical Examination General: No Apparent Distress HEENT: Positive: PERRL Neck: Positive: neck supple Cardiac: Positive: Reg Rate and Rhythm Lungs: Positive: Decreased Breath Sounds Neuro: Positive: Grossly Intact Extremities: Present: +1 Edema - Labs and Meds Comprehensive Metabolic Panel 01/23/17 01/24/17 Range/Units 10:30 08:04 Sodium 140 141 (137-145) mmol/L Potassium 4.4 4.3 (3.6-5.0) mmol/L Chloride 97.1 L 97.4 L (98-107) mmol/L Carbon Dioxide 29 28 (22-30) mmol/L BUN 38 H 41 H (9-20) mg/dL Creatinine 2.6 H 2.6 H (0.8-1.5) mg/dL Glucose 164 H 114 H (75-100) mg/dL Calcium 8.9 9.1 (8.4-10.2) mg/dL - Imaging and Cardiology EKG: image reviewed
[2017-01-24 10:58] LABS: BUN/Creatinine Ratio 16.15; Calcium 9.1 mg/dL (8.4-10.2); Chloride 95.7 mmol/L (98-107)
[2017-01-24 12:18] VITALS: BP 137/83
--- NOTE | 2017-01-24 13:46 | Discharge Summary ---
Providers - Providers Date of Admission: 01/17/17 22:39 Date of discharge: 01/24/17 Attending physician: TIGIST GATICA 01/20/17 16:49 Consult to Physician [CONS] Routine Consulting Provider: BEATRIZ HANNA I Reason For Exam: JUANA Place consult to:: Dr Hanna Notified:: a service Phone number called:: [phone] Was contact made?: Yes If yes, spoke with:: emma Time called:: 17:42 Primary care physician: [employer] Hospitalization Condition: Fair Hospital course: 51-year-old man history of hypertension, diabetes, CHF, hyperlipidemia, chronic kidney disease comes emergency room with complaints shortness of breath, PND and orthopnea, also lower extremity edema. He was placed on diuretics and renal function monitored. Nephrology was consulted for CKD. Cardiology recommended to continue medical management. His urine was positive for proteinuria, and FRANK was positive. Nephrology recommended outpt follow up following discharge. Discahrge Diagnosis and management: Acute exacerbation of diastolic CHF -Continued on diuresis, optimized meds, patient has had a recent echo in June 2016 which showed preserved EF - was on Low-salt diet, strict I's and O's and daily weights -PE has been ruled out by negative VQ scan -continued lasix and metolazone for diuresis - cardiology recommended no further intervention Accelerated hypertension - Optimized medications, continued hydralazine iv when necessary - BP was controlled with labetalol, procardia, lasix and metalozone Acute hypoxic respiratory failure - Continued with oxygen supplementation as needed - Likely from diastolic heart failure - resolved with diuresis Diabetes mellitus type II - BG is controlled with current insulin dose Aortic knob abnormality? 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 HEENT: Normocephalic. Atraumatic. No conjunctival congestion or icterus. Patient has moist mucous membranes. NECK: Supple. Trachea midline. CHEST/LUNGS: Few crackles auscultated bilaterally, breathing nonlabored. No wheezes or rhonchi. HEART/CARDIOVASCULAR: Regular in rate and rhythm. S1 and S2 positive. ABDOMEN: Abdomen is soft, nontender. Patient has normal bowel sounds. SKIN: There is no rash. Warm and dry. NEURO: No focal motor deficit. Follows command. MUSCULOSKELETAL: No joint effusion or tenderness. EXTRIMITY: 1+ pedal edema, no cyanosis or clubbing. PSYCH: Cooperative. - Constitutional Vitals: Temp Pulse Resp BP Pulse Ox 98.1 F 81 16 137/83 94 01/24/17 12:17 01/24/17 12:17 01/24/17 12:17 01/24/17 12:17 01/24/17 12:17 Plan Activity: advance as tolerated Weight Bearing Status: Weight Bear as Tolerated Diet: diabetic, renal Follow up with: [facility] [Outside] - 01/31/17 1:30 am PRIMARY CAREMD [Primary Care Provider] - 3-5 Days Prescriptions: Furosemide [Lasix TAB] 80 mg PO 0600,1800 #60 tablet Lisinopril [Zestril TAB] 40 mg PO QDAY #30 tablet Metolazone [Zaroxolyn] 2.5 mg PO QDAY #30 tablet Pending Studies F/u with nephrology in one week.
--- NOTE | 2017-01-24 14:39 | Progress Note ---
Assessment and Plan - Patient Problems (1) Acute kidney injury Current Visit: No Status: Acute Plan to address problem: Acute kidney Injury superimposed on CKD stage 3 is hemodynamically mediated in the setting of fluctuation in the BP. Creatinine is fairly stable. Discussed with patient to f/u with me in 1-2 weeks. (2) Chronic kidney disease, stage 3 (moderate) Current Visit: Yes Status: Chronic Plan to address problem: CKD is likely from combination of DM, HTN and CHF. (3) Proteinuria Current Visit: Yes Status: Chronic Qualifiers: Proteinuria type: P Isolated proteinuria type: I Trimester: T Plan to address problem: Patient was found to have Nephrotic range proteinuria with positive FRANK. Suspected Lupus. Patient is on Aspirin. Kidney biopsy as outpatient. (4) Acute on chronic diastolic CHF (congestive heart failure) Current Visit: No Status: Acute Plan to address problem: Followed by Cards. (5) Volume overload Current Visit: Yes Status: Chronic Qualifiers: Hypervolemia type: H Plan to address problem: Improving with Lasix and Metolazone. (6) Hypertensive urgency Current Visit: Yes Status: Acute Plan to address problem: BP is well controlled. Subjective Date of service: 01/24/17 Interval history: Patient is feeling better. Objective - Vital Signs Vital signs: Vital Signs - 12hr 01/24/17 01/24/17 01/24/17 04:00 08:41 09:43 Temperature 98.4 F 98.2 F Pulse Rate [ 85 Left Radial] Pulse Rate [ 80 Right] Respiratory 18 18 Rate Blood Pressure 154/91 131/86 [Right Radial Artery] O2 Sat by Pulse 97 94 99 Oximetry 01/24/17 12:17 Temperature 98.1 F Pulse Rate [ Left Radial] Pulse Rate [ 81 Right] Respiratory 16 Rate Blood Pressure 137/83 [Right Radial Artery] O2 Sat by Pulse 94 Oximetry - General Appearance General appearance: well-developed, well-nourished, appears stated age, obese, other (no distress) EENT: ATNC, PERRL, mucous membranes moist, hearing intact, vision intact Neck: supple Respiratory: Present: Clear to Ascultation Cardiology: regular, S1S2, no murmurs Gastrointestinal: normoactive bowel sounds, no tenderness, no distended Integumentary: no rash Neurologic: no focal deficit, no asterixis, alert and oriented x3, CN 3-12 intact Musculoskeletal: other (1+ pitting edema of both LEs noted) Psychiatric: cooperative - Lab 01/20/17 14:48 01/24/17 10:07 Most recent lab results Calcium 9.1 mg/dL (8.4-10.2) 01/24/17 10:07 Phosphorus 5.10 mg/dL (2.5-4.5) H 01/22/17 05:03 Magnesium 2.00 mg/dL (1.7-2.3) 01/22/17 05:03
== END 2017-01-24 14:45 | disposition home or self-care (01) | DRG 291 ==
LOC: ED 17:50 → 4A 22:39
PROVIDERS: ADMIT Internal Medicine; ATTEND Internal Medicine
PROC: 4A033R1 Measurement of Arterial Saturation, Peripheral, Percutaneous Approach (ICD-10-PCS; principal; 2017-01-17)
PROC: 5A09357 Assistance with Respiratory Ventilation, Less than 24 Consecutive Hours, Continuous Positive Airway Pressure (ICD-10-PCS; 2017-01-17)
DX: I13.0 Hypertensive heart and chronic kidney disease with heart failure and stage 1 through stage 4 chronic kidney disease, or unspecified chronic kidney disease (principal); I50.33 Acute on chronic diastolic (congestive) heart failure; J96.01 Acute respiratory failure with hypoxia; N17.0 Acute kidney failure with tubular necrosis; E78.5 Hyperlipidemia, unspecified; E11.22 Type 2 diabetes mellitus with diabetic chronic kidney disease; M19.90 Unspecified osteoarthritis, unspecified site; N18.3 Chronic kidney disease, stage 3 (moderate); E66.9 Obesity, unspecified; R80.9 Proteinuria, unspecified; E87.70 Fluid overload, unspecified; I16.0 Hypertensive urgency; Z68.32 Body mass index [BMI] 32.0-32.9, adult; Z79.4 Long term (current) use of insulin; Z91.14 Patient's other noncompliance with medication regimen; Z91.11 Patient's noncompliance with dietary regimen; Z91.018 Allergy to other foods; Z83.3 Family history of diabetes mellitus; Z82.49 Family history of ischemic heart disease and other diseases of the circulatory system
CPT/HCPCS: 36415; 71010; 71250; 78582; 80048; 80053; 80061; 80307; 81001; 82550; 82553; 82803; 82962; 83735; 83880; 84100; 84484; 85025; 85027; 85379; 85610; 85730; 86160; 93005; 93010; 94640; 94660; 94760; 96374; 96375; A9540; A9558; J0360; J1650; J1815; J1818; J1940; J2260

== ENCOUNTER 2017-02-06 22:43 | Inpatient (IN) | payer OTHER ==
[2017-02-06] MEDS ORDERED: TRIDIL DRIP 50MG/250ML 50 MG/250 ML BOTTLE ONE (22:52)
[2017-02-06] MEDS: TRIDIL DRIP 50MG/250ML 50 MG/250 ML BOTTLE IV ONE (23:00)
[2017-02-06] MEDS ORDERED: LASIX IV ONE (23:01)
[2017-02-06 23:24] LABS: Basophils % (Auto) 1.2 % (0.0-1.8); Eosinophils % (Auto) 3.2 % (0.0-4.3); Hematocrit 36.6 % (35.5-45.6); Hemoglobin 11.9 gm/dl (11.8-15.2); Mean Corpuscular HGB Conc 32 % (32-34); Mean Corpuscular Hemoglobin 28 pg (28-32); Mean Corpuscular Volume 86 fl (84-94); Platelet Count 259 K/mm3 (140-440); Red Blood Count 4.24 M/mm3 (3.65-5.03); Red Cell Distribution Width 16.6 % (13.2-15.2); White Blood Count 10.6 K/mm3 (4.5-11.0)
[2017-02-06 23:34] LABS: INR 1.23 (0.87-1.13); Partial Thromboplastin Time 29.2 Sec. (24.2-36.6)
[2017-02-06 23:51] LABS: BUN/Creatinine Ratio 13.33; Calcium 8.3 mg/dL (8.4-10.2); Chloride 104.5 mmol/L (98-107)
[2017-02-07 00:06] LABS: Potassium 5.1 mmol/L (3.6-5.0)
[2017-02-07] MEDS ORDERED: ASPIRIN PR ONE (00:10)
--- NOTE | 2017-02-07 00:18 | Emergency Department Report ---
ED General Adult HPI - General Chief complaint: Dyspnea/Respdistress Stated complaint: GAYLE Time Seen by Provider: 02/06/17 22:53 Source: patient, EMS Mode of arrival: Stretcher Limitations: Other - History of Present Illness Initial comments: 51 y/o M presents w/ cc of respiratory distress. Pt states that for the past 2- 3 days, pt has noted increased swelling of lower extremities. Pt today had worsening shortness of breath, pt was transported by family to local EMS where pt was immediately transferred to ED. Pt denies fever, chest pain, pleurisy, hemoptysis. Difficult to get hx due to pt's respiratory distress - Related Data Home Medications Medication Instructions Recorded Confirmed Last Taken Insulin Glargine [Lantus VIAL] 15 units SUB-Q QHS 01/17/17 01/17/17 Unknown Labetalol [Normodyne TAB] 200 mg PO TID 01/17/17 01/17/17 Unknown NIFEdipine XL [Procardia Xl] 90 mg PO DAILY 01/17/17 01/17/17 Unknown Previous Rx's Medication Instructions Recorded Last Taken Type Furosemide [Lasix TAB] 80 mg PO 0600,1800 #60 tablet 01/24/17 Unknown Rx Lisinopril [Zestril TAB] 40 mg PO QDAY #30 tablet 01/24/17 Unknown Rx Metolazone [Zaroxolyn] 2.5 mg PO QDAY #30 tablet 01/24/17 Unknown Rx Allergies Allergy/AdvReac Type Severity Reaction Status Date / Time peach Allergy Unknown Swelling Verified 07/10/16 20:59 ED Review of Systems ROS: Stated complaint: GAYLE Other details as noted in HPI Comment: All other systems reviewed and negative Constitutional: denies: chills, fever Eyes: denies: eye pain, eye discharge, vision change ENT: denies: ear pain, throat pain Respiratory: denies: cough, shortness of breath, wheezing Cardiovascular: denies: chest pain, palpitations Endocrine: no symptoms reported Gastrointestinal: denies: abdominal pain, nausea, diarrhea Genitourinary: denies: urgency, dysuria Musculoskeletal: denies: back pain, joint swelling, arthralgia Skin: denies: rash, lesions Neurological: denies: headache, weakness, paresthesias Psychiatric: denies: anxiety, depression Hematological/Lymphatic: denies: easy bleeding, easy bruising ED Past Medical Hx - Past Medical History Hx Hypertension: Yes Hx Heart Attack/AMI: No Hx Congestive Heart Failure: Yes Hx Diabetes: Yes Hx Deep Vein Thrombosis: No Hx Pulmonary Embolism: No Hx Renal Disease: Yes Hx Arthritis: Yes Hx Seizures: No Hx Asthma: No Hx COPD: No Hx Tuberculosis: No Hx Dementia: No Additional medical history: gout - Surgical History Hx Coronary Stent: No Hx Pacemaker: No Hx Internal Defibrillator: No - Social History Smoking Status: Never Smoker Substance Use Type: None - Medications Home Medications: Home Medications Medication Instructions Recorded Confirmed Last Taken Type Insulin Glargine [Lantus VIAL] 15 units SUB-Q QHS 01/17/17 01/17/17 Unknown History Labetalol [Normodyne TAB] 200 mg PO TID 01/17/17 01/17/17 Unknown History NIFEdipine XL [Procardia Xl] 90 mg PO DAILY 01/17/17 01/17/17 Unknown History Furosemide [Lasix TAB] 80 mg PO 0600,1800 #60 tablet 01/24/17 Unknown Rx Lisinopril [Zestril TAB] 40 mg PO QDAY #30 tablet 01/24/17 Unknown Rx Metolazone [Zaroxolyn] 2.5 mg PO QDAY #30 tablet 01/24/17 Unknown Rx ED Physical Exam - General Limitations: Other General appearance: alert, in no apparent distress - Head Head exam: Present: atraumatic, normocephalic - Eye Eye exam: Present: normal appearance, PERRL, EOMI - ENT ENT exam: Present: normal exam, normal orophraynx, mucous membranes moist - Neck Neck exam: Present: normal inspection - Respiratory Respiratory exam: Present: respiratory distress, other (dimished bs bilat) - Cardiovascular Cardiovascular Exam: Present: regular rate, normal rhythm. Absent: systolic murmur, diastolic murmur, rubs, gallop - GI/Abdominal GI/Abdominal exam: Present: soft, normal bowel sounds. Absent: distended, guarding, rebound - Rectal Rectal exam: Present: deferred - Extremities Exam Extremities exam: Present: normal inspection, full ROM, other (2+ pitting edema in LE) - Back Exam Back exam: Present: normal inspection - Neurological Exam Neurological exam: Present: alert, oriented X3, CN II-XII intact - Psychiatric Psychiatric exam: Present: normal affect, normal mood - Skin Skin exam: Present: warm, dry, intact, normal color. Absent: rash ED Course Vital Signs 02/06/17 02/06/17 02/06/17 22:42 22:47 22:50 Temperature Pulse Rate 129 H 128 H Respiratory 32 H 58 H Rate Blood Pressure O2 Sat by Pulse 88 97 96 Oximetry 02/06/17 02/06/17 02/06/17 23:00 23:10 23:20 Temperature 98.7 F Pulse Rate 114 H 112 H 109 H Respiratory 21 13 35 H Rate Blood Pressure 254/143 163/97 O2 Sat by Pulse 100 99 99 Oximetry 02/06/17 02/06/17 23:30 23:40 Temperature Pulse Rate 110 H 109 H Respiratory 31 H 28 H Rate Blood Pressure 158/92 158/92 O2 Sat by Pulse 98 99 Oximetry - Consultations Consultation #1: 02/07/17 00:18 Pt immediately placed on bipap on arrival, suspect acute CHF exacerbation, bedside u/s noted sliding to suggest no pneumothorax. Given hypertension and hx of CHF, my suspciion is flash pulm edema w/ acute chf exacerbation. Will aggressively treat with NTG, LASIX, BIPAP and reassess. Low suspicion for PE, but will consider if pt's clinical condition does not improve. Will get blood cultures in case of pneumonia, troponin to r/o nstemi ED COURSE: s/p NTG Bolus/gtt, bipap, lasix, pt's respiratory distress resolved. 02/07/17 00:23 ED Medical Decision Making - Lab Data Result diagrams: 02/06/17 22:55 02/06/17 22:55 - Medical Decision Making EKG: ST 138, lad, non specific t wave inversion I, no significant st seg changes, qrs 90 , qtc 506, unchanged compared to prior s/p meds, pt's respiratory distress resolved on bipap, tachycardia improved to HR of [address] Meade will admit CXR as reviewed by me notes bilat airspace disease Critical Care Time: Yes Critical care time in (mins) excluding proc time.: 41 Critical care attestation.: If time is entered above; I have spent that time in minutes in the direct care of this critically ill patient, excluding procedure time. Critical Care Time: 41 mins ED Disposition Clinical Impression: Acute on chronic diastolic CHF (congestive heart failure), Elevated troponin I measurement, Respiratory distress CHF (congestive heart failure) Qualifiers: Congestive heart failure type: unspecified congestive heart failure type Congestive heart failure chronicity: acute on chronic Qualified Code(s): I50.9 - Heart failure, unspecified Dyspnea Qualifiers: Dyspnea type: shortness of breath Qualified Code(s): R06.02 - Shortness of breath Chronic kidney disease Qualifiers: Chronic kidney disease stage: unspecified stage Qualified Code(s): N18.9 - Chronic kidney disease, unspecified Disposition: OP ADMITTED IP TO THIS HOSP Is pt being admited?: Yes Condition: Serious
[2017-02-07] MEDS ORDERED: ASPIRIN PO ONE (00:48)
[2017-02-07] MEDS: TRIDIL DRIP 50MG/250ML 50 MG/250 ML BOTTLE IV ONE (01:00)
[2017-02-07] MEDS ORDERED: MILK OF MAGNESIA PO PRN (01:52)
[2017-02-07] MEDS ORDERED: ZOFRAN IV PRN (01:52)
[2017-02-07] MEDS ORDERED: D50W (25GM) IV PRN (01:52)
[2017-02-07] MEDS ORDERED: DULCOLAX PR PRN (01:52)
--- NOTE | 2017-02-07 01:57 | History and Physical Report ---
History of Present Illness Date of examination: 02/07/17 History of present illness: 1-year-old man history of hypertension, diabetes, CHF, hyperlipidemia, chronic kidney disease comes emergency room with complaints shortness of breath. He was in respiratory distress, placed on BiPAP . Blood pressure was extremely high , he was started on nitroglycerin drip. Also complaining of PND and orthopnea, also lower extremity edema. Patient stated he is compliant with diet and medications Patient denies chest pain, palpitation, cough, abdominal pain, hematochezia, dysuria, frequency, focal weakness, dysarthria, fever chills, polydipsia polyuria, hot or cold intolerance, easy bruisability, or rash or bleeding from mucosal membrane, rhinorrhea, epistaxis, earache, tinnitus, blurry vision, eye discharge, anxiety, depression. Other review of systems negative PAST SURGICAL HISTORY: None SOCIAL HISTORY: Denies alcohol, tobacco, drugs FAMILY HISTORY: Hypertension, diabetes Medications and Allergies Allergies Allergy/AdvReac Type Severity Reaction Status Date / Time peach Allergy Unknown Swelling Verified 07/10/16 20:59 Home Medications Medication Instructions Recorded Confirmed Last Taken Type Insulin Glargine [Lantus VIAL] 15 units SUB-Q QHS 01/17/17 02/07/17 Unknown History Labetalol [Normodyne TAB] 200 mg PO TID 01/17/17 02/07/17 Unknown History NIFEdipine XL [Procardia Xl] 90 mg PO DAILY 01/17/17 02/07/17 Unknown History Furosemide [Lasix TAB] 80 mg PO 0600,1800 #60 tablet 01/24/17 02/07/17 Unknown Rx Lisinopril [Zestril TAB] 40 mg PO QDAY #30 tablet 01/24/17 02/07/17 Unknown Rx Metolazone [Zaroxolyn] 2.5 mg PO QDAY #30 tablet 01/24/17 02/07/17 Unknown Rx Active Meds: Active Medications Nitroglycerin/Dextrose (Tridil Drip 50mg/250ml) 50 mg in 250 mls @ 3 mls/hr IV TITR ONE; 10 MCG/MIN PRN Reason: Protocol Stop: 02/10/17 10:20 Last Titration: 02/07/17 01:41 Dose: 40 mcg/min, 12 mls/hr Exam - Physical Exam Narrative exam: Gen. appearance: Patient lying in bed, no apparent distress on BiPAP HEENT: Normocephalic, atraumatic, pupils equally round and reactive to light, extraocular movement intact, and no sclericterus,. No JVD or thyromegaly or nodule,neck supple, no carotid bruit ,mucous membranes moist, no exudate or erythema Heart: S1, S2, regular rate and rhythm Lungs:Crackles bilaterally, breathing comfortable Abdomen: Positive bowel sounds, nontender, nondistended, no organomegaly Extremity: 3+ edema up to knees b/l, no cyanosis, clubbing Skin: No rash, nodules, warm, dry Neuro: Oriented 3, cranial nerves II-12 intact, speech is fluent, motor and sensory intact - Constitutional Vitals: Temp Pulse Resp BP Pulse Ox 98.7 F 109 H 28 H 158/92 99 02/06/17 23:00 02/06/17 23:40 02/06/17 23:40 02/06/17 23:40 02/06/17 23:40 Results - Labs CBC & Chem 7: 02/08/17 07:01 02/08/17 07:01 Labs: Abnormal lab results 02/06/17 02/06/17 02/06/17 Range/Units 22:55 22:55 22:55 RDW 16.6 H (13.2-15.2) % [place] % (Auto) 12.0 H (0.0-7.3) % [place] # 1.3 H (0.0-0.8) K/mm3 PT 15.4 H (12.2-14.9) Sec. INR 1.23 H (0.87-1.13) Potassium 5.1 H (3.6-5.0) mmol/L BUN 28 H (9-20) mg/dL Creatinine 2.1 H (0.8-1.5) mg/dL Glucose 216 H (75-100) mg/dL Calcium 8.3 L (8.4-10.2) mg/dL Troponin T 0.147 H* (0.00-0.029) ng/mL NT-Pro-B Natriuret Pep 6563 H (0-900) pg/mL Triglycerides 383 H (2-149) mg/dL Cholesterol 302 H (50-199) mg/dL LDL Cholesterol Direct 182 H (50-130) mg/dL - Imaging and Cardiology EKG: image reviewed Chest x-ray: image reviewed Assessment and Plan Acute respiratory failure CHF exacerbation, diastolic Hypertensive malignant Diabetes type 2 Hyperlipidemia Chronic kidney disease Admit to medicine Start diuresis with IV lasix, continue BiPAP, continue nitroglycerin drip Check cardiac enzymes, echo consult cardiology Monitor I/Os, daily weights, hold beta celestine, KIYA inhibitor, patient on ntg drip, start aspirin Check fingersticks and initiate insulin sliding scale Continue outpatient medications Start DVT prophylaxis Check v/q
[2017-02-07 02:08] LABS: Bilirubin,Urine NEG (Negative); Blood,Urine SM (Negative); Ketones,Urine NEG (Negative); Leukocyte Esterase,Urine TR (Negative); Mucus,Urine FEW /HPF; Nitrite,Urine NEG (Negative); Urobilinogen,Urine < 2.0 mg/dL (<2.0)
[2017-02-07 02:10] LABS: Protein,Urine >500 mg/dL (Negative)
[2017-02-07] MEDS: TYLENOL PO PRN (04:55)
[2017-02-07] MEDS ORDERED: LASIX ONE ×2 (05:14→05:26)
[2017-02-07] MEDS ORDERED: LASIX IV ONE ×2 (05:14→05:24)
[2017-02-07 05:35] LABS: Creatine Kinase MB 4.5 ng/mL (0.0-4.0)
--- NOTE | 2017-02-07 07:06 | Admit Criteria Form ---
Admission Criteria Documentation: RESPIRATORY FAILURE GRG Clinical Indications for Admission to Inpatient Care (Place 'X' for any and all applicable criteria): Hospital admission is needed for appropriate care of the patient because of acute respiratory failure or insufficiency as indicated by ANY ONE of the following(1)(2)(3)(4)(5)(6)(7)(8): [ X]I. Mechanical ventilation needed (acute invasive or noninvasive) [ ]II. Severe ventilation deficit as indicated by ANY ONE of the following (9) [ ]a) Respiratory acidosis (pH less than 7.32 and partial pressure of carbon dioxide greater than 40 mm Hg (5.3 kPa)) [ ]b) Partial pressure of carbon dioxide greater than 44 mm Hg (5.9 kPa ) (new) [ ]c) Airflow measurements less than 25% of predicted (eg, peak expiratory flow rate less than 100 L/minute) [ ]d) Forced vital capacity less than 15 mL/kg of ideal body weight, or 50% decrease in vital capacity from baseline [ ]III. Noncardiac pulmonary edema not resolving with rapid emergency treatment (8) [ ]IV. Severe respiratory distress as indicated by ANY ONE of the following: [ ]a) Severe tachypnea (respiratory rate greater than 30, greater than 45 for 6-month-old, greater than 60 for ) [ ]b) Severe hypoxemia (partial pressure of oxygen less than 50 mm Hg ( 6.7 kPa) on greater than 50% oxygen or partial pressure of oxygen to FIO2 ratio less than 200) [ ]c) Mental status deterioration from respiratory disease [ ]V. Airway obstruction or inadequate protection [A](10)(11) The original [employer] content created by [employer] has been revised. The portions of the content which have been revised are identified through the use of italic text or in bold, and [employer] has neither reviewed nor approved the modified material. All other unmodified content is copyright [employer]. Please see references footnoted in the original [employer] edition 2016 Admission Criteria Met: Yes
[2017-02-07] MEDS: NOVOLOG SUB-Q SCH ×3 (07:48→16:40)
--- NOTE | 2017-02-07 08:04 | Nuclear Medicine Report ---
PERFUSION SCAN INDICATION: Dyspnea. Evaluate for pulmonary embolism. COMPARISON: 01/17/2017 FINDINGS: Perfusion scan performed in anterior, posterior, lateral and oblique projections. 5 mCi of technetium 99m MAA was used for the perfusion assessment. Ventilation not tolerated by the patient. The perfusion appears homogenous without large lobar or definite segmental defects. Available chest radiograph from 10:53 PM last night demonstrates limited inspiration with congestive pattern. CONCLUSION: Low suspicion for pulmonary embolism in this patient with CHF suspected. Please correlate. Thank you for the opportunity to participate in this patient's care.
--- NOTE | 2017-02-07 08:06 | XRay Report ---
PORTABLE CHEST INDICATION: Dyspnea. COMPARISON: 01/17/2017 FINDINGS: Portable, frontal chest radiograph again demonstrates limited inspiration with exaggerated cardiomediastinal silhouette, mildly elevated left hemidiaphragm, EKG leads and osseous structures. Increased bronchovascular markings/congestion though now seen without large pleural effusions. CONCLUSION: Mild pulmonary vascular congestion now suspected, as described. Please correlate. Thank you for the opportunity to participate in this patient's care.
[2017-02-07 08:31] LABS: ISTAT Base Excess -6; ISTAT HCO3 19.5; ISTAT PCO2 36.2 (35-45); ISTAT PO2 104 (80-105); ISTAT SO2 98; ISTAT TCO2 21
[2017-02-07 09:31] LABS: Creatine Kinase MB 4.9 ng/mL (0.0-4.0)
[2017-02-07] MEDS ORDERED: LOVENOX SUB-Q SCH (10:00)
[2017-02-07] MEDS: ASPIRIN PO SCH (12:08)
[2017-02-07] MEDS: LASIX IV SCH (12:10)
[2017-02-07] MEDS: LOVENOX SUB-Q SCH (12:12)
[2017-02-07] MEDS: PROCARDIA XL PO SCH (12:40)
--- NOTE | 2017-02-07 16:20 | Consultation ---
History of Present Illness Consult date: 02/07/17 Consult reason: congestive heart failure History of present illness: 51yr old male who presents to the ED with respiratory distress requiring Bipap therapy. Severely hypertensive with a BP of 254/143 on presentation. Chest xray reports mild pulmonary vascular congestion. Patient reports he has been compliant with his medications including lasix 80 mg po bid. He is also compliant with fluid and dietary restriction. He denies chest pain. Cardiology consultation requested for heart failure with a preserved EF. Medications and Allergies Allergies Allergy/AdvReac Type Severity Reaction Status Date / Time peach Allergy Unknown Swelling Verified 07/10/16 20:59 Home Medications Medication Instructions Recorded Confirmed Last Taken Type Insulin Glargine [Lantus VIAL] 15 units SUB-Q QHS 01/17/17 02/07/17 Unknown History Labetalol [Normodyne TAB] 200 mg PO TID 01/17/17 02/07/17 Unknown History NIFEdipine XL [Procardia Xl] 90 mg PO DAILY 01/17/17 02/07/17 Unknown History Furosemide [Lasix TAB] 80 mg PO 0600,1800 #60 tablet 01/24/17 02/07/17 Unknown Rx Lisinopril [Zestril TAB] 40 mg PO QDAY #30 tablet 01/24/17 02/07/17 Unknown Rx Metolazone [Zaroxolyn] 2.5 mg PO QDAY #30 tablet 01/24/17 02/07/17 Unknown Rx Active Meds: Active Medications Acetaminophen (Tylenol) 650 mg PO Q4H PRN PRN Reason: Pain MILD(1-3)/Fever >100.5/RAYMUNDO Last Admin: 02/07/17 04:55 Dose: 650 mg Aspirin (Aspirin) 325 mg PO QDAY [facility] Last Admin: 02/07/17 12:08 Dose: 325 mg Bisacodyl (Dulcolax) 10 mg IA QDAY PRN PRN Reason: Constipation unrelieved by MOM Dextrose (D50w (25gm)) 50 ml IV PRN PRN PRN Reason: Hypoglycemia Enoxaparin Sodium (Lovenox) 40 mg SUB-Q QDAY@1000 [facility] Last Admin: 02/07/17 12:12 Dose: 40 mg Furosemide (Lasix) 40 mg IV BID [facility] Last Admin: 02/07/17 12:10 Dose: 40 mg Nitroglycerin/Dextrose (Tridil Drip 50mg/250ml) 50 mg in 250 mls @ 3 mls/hr IV TITR ONE; 10 MCG/MIN PRN Reason: Protocol Stop: 02/10/17 10:20 Last Titration: 02/07/17 04:48 Dose: Infused Insulin Aspart (Novolog) 0 units SUB-Q ACHS [place] PRN Reason: Protocol Last Admin: 02/07/17 12:15 Dose: 4 units Insulin Detemir (Levemir) 15 units SUB-Q QHS [place] Labetalol HCl (Normodyne) 200 mg PO TID [facility] Magnesium Hydroxide (Milk Of Magnesia) 30 ml PO Q4H PRN PRN Reason: Constipation Nifedipine (Procardia Xl) 90 mg PO DAILY [facility] Last Admin: 02/07/17 12:40 Dose: 90 mg Ondansetron HCl (Zofran) 4 mg IV Q8H PRN PRN Reason: N/V unrelieved by Reglan Physical Examination Vital Signs Pulse Ox 88 02/06/17 22:42 General appearance: other (On bipap therapy) HEENT: Positive: PERRL Cardiac: Positive: Reg Rate and Rhythm Results 02/06/17 22:55 02/06/17 22:55 Cardiac Enzymes 02/07/17 02/07/17 02/07/17 Range/Units 04:40 07:45 08:24 POC ABG pH 7.340 L (7.35-7.45) POC ABG pCO2 36.2 (35-45) POC ABG pO2 104 (80-105) POC ABG HCO3 19.5 POC ABG Total CO2 21 POC ABG O2 Sat 98 POC ABG Base Excess -6 FiO2 35 % POC Glucose 277 H (70-105) Total Creatine Kinase 314 H (55-170) units/L CK-MB (CK-2) 4.5 H (0.0-4.0) ng/mL CK-MB (CK-2) Rel Index 1.4 (0-4) Troponin T 0.117 H* D (0.00-0.029) ng/mL 02/07/17 02/07/17 Range/Units 08:53 11:43 POC ABG pH (7.35-7.45) POC ABG pCO2 (35-45) POC ABG pO2 (80-105) POC ABG HCO3 POC ABG Total CO2 POC ABG O2 Sat POC ABG Base Excess FiO2 % POC Glucose 238 H (70-105) Total Creatine Kinase 335 H (55-170) units/L CK-MB (CK-2) 4.9 H (0.0-4.0) ng/mL CK-MB (CK-2) Rel Index 1.4 (0-4) Troponin T 0.116 H* (0.00-0.029) ng/mL Assessment and Plan Acute respiratory failure Chronic CHF, diastolic normal LVEF, severe LVH on echo 06/2016 Systemic Hypertension Chronic kidney disease Nephrotic range proteinuria Elevated troponin, chronic Hyperlipidemia Hx of DVT -previously on eliquis [facility] at [facility] 2012 reports no significant coronary disease. Normal MPI 12/2015 Recommend: Diuretics, blood pressure control, dietary salt restriction.
[2017-02-07] MEDS ORDERED: LASIX PO SCH (18:00)
[2017-02-07] MEDS: NORMODYNE PO SCH ×2 (19:05→21:49)
[2017-02-07] MEDS ORDERED: NON-FORMULARY (Insulin Glargine 15 UNITS) SUB-Q SCH (22:00)
[2017-02-08] MEDS: LEVEMIR SUB-Q SCH ×2 (01:11→23:02)
[2017-02-08] MEDS: LASIX IV SCH ×3 (01:11→23:02)
[2017-02-08] MEDS: NOVOLOG SUB-Q SCH ×5 (01:12→23:03)
[2017-02-08] MEDS: TYLENOL PO PRN (04:30)
[2017-02-08] MEDS ORDERED: APRESOLINE IV PRN (05:35)
[2017-02-08 07:51] LABS: Basophils % (Auto) 0.3 % (0.0-1.8); Eosinophils % (Auto) 0.7 % (0.0-4.3); Hematocrit 30.6 % (35.5-45.6); Hemoglobin 10.4 gm/dl (11.8-15.2); Mean Corpuscular HGB Conc 34 % (32-34); Mean Corpuscular Hemoglobin 28 pg (28-32); Mean Corpuscular Volume 84 fl (84-94); Platelet Count 208 K/mm3 (140-440); Red Blood Count 3.66 M/mm3 (3.65-5.03); White Blood Count 9.9 K/mm3 (4.5-11.0)
[2017-02-08 08:06] LABS: BUN/Creatinine Ratio 19.09; Calcium 8.5 mg/dL (8.4-10.2)
[2017-02-08] MEDS: PROCARDIA XL PO SCH (09:03)
[2017-02-08] MEDS: NORMODYNE PO SCH ×3 (09:03→20:48)
[2017-02-08] MEDS: LOVENOX SUB-Q SCH (09:03)
[2017-02-08] MEDS: ASPIRIN PO SCH (09:03)
--- NOTE | 2017-02-08 10:16 | Progress Note ---
Assessment and Plan Acute respiratory failure Chronic CHF, diastolic normal LVEF, severe LVH on echo 06/2016 Systemic Hypertension Chronic kidney disease Nephrotic range proteinuria Elevated troponin, chronic Hyperlipidemia Hx of DVT -previously on eliquis [facility] at [facility] 2012 reports no significant coronary disease. Normal MPI 12/2015 Recommend: Diuretics, blood pressure control, dietary salt restriction. Patient appears euvolemic on exam today May go home cardiac thomas to follow-up with his primary care provider and cardiology as outpatient Subjective Date of service: 02/08/17 Principal diagnosis: Shortness of breath Interval history: Patient reports feeling better and back to baseline this morning Objective Vital Signs Temp Pulse Pulse Pulse Resp BP BP 02/08/17 08:30 02/08/17 08:00 97.5 F L 87 20 157/77 02/08/17 07:54 90 02/08/17 06:50 87 163/82 02/08/17 05:10 98.9 F 88 18 185/92 02/08/17 00:48 98.9 F 98 H 18 179/88 02/07/17 21:49 93 H 167/90 02/07/17 21:44 93 H 22 02/07/17 21:37 02/07/17 21:00 91 H 22 157/86 02/07/17 20:00 85 24 167/95 02/07/17 19:46 87 22 154/82 02/07/17 19:00 90 23 161/90 02/07/17 18:00 95 H 24 171/91 02/07/17 17:00 93 H 14 186/107 02/07/17 16:00 89 13 176/104 02/07/17 15:10 95 H 26 H 02/07/17 15:00 84 21 171/108 02/07/17 14:00 86 19 176/94 02/07/17 13:20 84 18 210/111 02/07/17 13:10 86 24 217/113 02/07/17 13:00 216/112 02/07/17 12:50 216/113 02/07/17 12:40 208/117 02/07/17 12:30 82 21 208/117 02/07/17 12:20 87 25 H 216/117 02/07/17 12:10 87 19 210/125 02/07/17 12:00 98 H 164/91 02/07/17 11:50 82 20 164/91 02/07/17 11:40 83 20 157/84 02/07/17 11:30 82 21 157/84 02/07/17 11:20 85 20 164/90 02/07/17 11:10 79 32 H 176/100 02/07/17 11:00 81 32 H 176/100 02/07/17 10:50 81 43 H 161/94 02/07/17 10:40 81 51 H 172/98 02/07/17 10:30 84 51 H 172/98 02/07/17 10:20 87 19 194/100 BP Pulse Ox 02/08/17 08:30 100 02/08/17 08:00 98 02/08/17 07:54 02/08/17 06:50 02/08/17 05:10 100 02/08/17 00:48 92 02/07/17 21:49 02/07/17 21:44 167/90 98 02/07/17 21:37 98 02/07/17 21:00 97 02/07/17 20:00 99 02/07/17 19:46 100 02/07/17 19:00 97 02/07/17 18:00 97 02/07/17 17:00 97 02/07/17 16:00 100 02/07/17 15:10 96 02/07/17 15:00 100 02/07/17 14:00 97 02/07/17 13:20 97 17 13:10 98 17 13:00 98 02/07/17 12:50 100 17 12:40 100 17 12:30 98 17 12:20 100 1817 12:10 100 17 12:00 97 17 11:50 97 1817 11:40 98 1817 11:30 95 1817 11:20 98 1817 11:10 99 1817 11:00 97 1817 10:50 99 1817 10:40 99 1817 10:30 97 18 10:20 100 - Physical Examination HEENT: Positive: PERRL Neck: Positive: neck supple. Negative: JVD/HJR Cardiac: Positive: Reg Rate and Rhythm Lungs: Positive: Normal Exam Extremities: Present: +1 Edema - Labs and Meds CBC 02/08/17 Range/Units 07:01 WBC 9.9 (4.5-11.0) K/mm3 RBC 3.66 (3.65-5.03) M/mm3 Hgb 10.4 L (11.8-15.2) gm/dl Hct 30.6 L D (35.5-45.6) % Plt Count 208 (140-440) K/mm3 Lymph # 1.4 (1.2-5.4) K/mm3 [place] # 1.3 H (0.0-0.8) K/mm3 Eos # 0.1 (0.0-0.4) K/mm3 Baso # 0.0 (0.0-0.1) K/mm3 Comprehensive Metabolic Panel 02/08/17 Range/Units 07:01 Sodium 143 (137-145) mmol/L Potassium 4.0 D (3.6-5.0) mmol/L Chloride 105.0 (98-107) mmol/L Carbon Dioxide 23 (22-30) mmol/L BUN 42 H (9-20) mg/dL Creatinine 2.2 H (0.8-1.5) mg/dL Glucose 142 H (75-100) mg/dL Calcium 8.5 (8.4-10.2) mg/dL - Imaging and Cardiology EKG: image reviewed
--- NOTE | 2017-02-08 16:50 | Event Note ---
Date: 02/08/17 ICU admission requested earlier for hypertensive urgency but BP's controlled and transferred to medical floor - will see prn
--- NOTE | 2017-02-08 17:50 | Progress Note ---
Assessment and Plan 51yr old male who presents to the ED with respiratory distress, Severely hypertensive with a BP of 254/143 on presentation. Chest xray reports mild pulmonary vascular congestion. He was placed on nitro drip and BiPAP. Acute respiratory failure - s/p BiPAP - now on N/C - likely from volume overload CHF exacerbation, diastolic -placed on lasix - 2D echo showed preserved EF Hypertensive malignant - s/p nitroglycerin drip - better control with current meds Diabetes type 2 - ADA diet, insulin coverage Hyperlipidemia - cont statin Chronic kidney disease - monitor renal function - nephrology following Subjective Date of service: 02/08/17 Principal diagnosis: Shortness of breath Interval history: Patient seen and examined. Medical records and medication list reviewed. No acute event overnight noted by the RN. Patient on n/c today, denies chest pain Objective - Exam Narrative Exam: GENERAL: well-developed and well-nourished AAM lying on bed appeared to be in no discomfort. HEENT: Normocephalic. Atraumatic. No conjunctival congestion or icterus. Patient has moist mucous membranes. NECK: Supple. Trachea midline. CHEST/LUNGS: Clear to auscultated bilaterally, breathing nonlabored. No wheezes crackles or rhonchi. HEART/CARDIOVASCULAR: Regular in rate and rhythm. S1 and S2 positive. ABDOMEN: Abdomen is soft, nontender. Patient has normal bowel sounds. SKIN: There is no rash. Warm and dry. NEURO: No focal motor deficit. Follows command. MUSCULOSKELETAL: No joint effusion or tenderness. EXTRIMITY: 3+ edema, no cyanosis or clubbing. PSYCH: Cooperative. - Constitutional Vitals: Vital Signs - 12hr 02/08/17 02/08/17 02/08/17 06:50 07:54 08:00 Temperature 97.5 F L Pulse Rate 87 90 Pulse Rate [ 87 Right Dorsalis Pedis] Respiratory 20 Rate Blood Pressure 163/82 Blood Pressure 157/77 [Left Arm] O2 Sat by Pulse 98 Oximetry 02/08/17 02/08/17 02/08/17 08:30 10:00 13:25 Temperature Pulse Rate Pulse Rate [ 87 Right Dorsalis Pedis] Respiratory 14 Rate Blood Pressure Blood Pressure 165/83 [Left Arm] O2 Sat by Pulse 100 100 Oximetry - Labs CBC & Chem 7: 02/08/17 07:01 02/09/17 05:54 Labs: Abnormal lab results 02/07/17 02/08/17 02/08/17 Range/Units 17:04 00:58 07:01 Hgb 10.4 L (11.8-15.2) gm/dl Hct 30.6 L D (35.5-45.6) % RDW 17.0 H (13.2-15.2) % [place] % (Auto) 12.7 H (0.0-7.3) % [place] # 1.3 H (0.0-0.8) K/mm3 Seg Neutrophils % 72.1 H (40.0-70.0) % BUN (9-20) mg/dL Creatinine (0.8-1.5) mg/dL Glucose (75-100) mg/dL POC Glucose 193 H 233 H (70-105) 02/08/17 Range/Units 07:01 Hgb (11.8-15.2) gm/dl Hct (35.5-45.6) % RDW (13.2-15.2) % [place] % (Auto) (0.0-7.3) % [place] # (0.0-0.8) K/mm3 Seg Neutrophils % (40.0-70.0) % BUN 42 H (9-20) mg/dL Creatinine 2.2 H (0.8-1.5) mg/dL Glucose 142 H (75-100) mg/dL POC Glucose (70-105)
[2017-02-09 07:22] LABS: BUN/Creatinine Ratio 19.54; Calcium 8.1 mg/dL (8.4-10.2); Chloride 104.7 mmol/L (98-107); Potassium 4.3 mmol/L (3.6-5.0)
[2017-02-09] MEDS: NOVOLOG SUB-Q SCH ×3 (08:46→22:24)
[2017-02-09] MEDS: NORMODYNE PO SCH ×3 (08:57→22:23)
--- NOTE | 2017-02-09 10:47 | Consultation ---
History of Present Illness - Reason for Consult Consult date: 02/09/17 acute renal failure, chronic renal failure - History of Present Illness Patient is a 51-year-old AAM with history significant for Obesity, Hypertension , Type 2 DM, Diastolic CHF, Hyperlipidemia, Nephrotic range proteinuria and Chronic kidney disease stage 3 came to the emergency room with complaints shortness of breath, PND, orthopnea and bilateral lower extremity edema. Patient claims that he is compliant with diet and medications. He is not followed by any physician at this time. His initial BP was 254/143, required Nitro drip. His symptoms are better at this time. His baseline creatinine is around 2 and his creatinine is 2.2 today. He has intermittent nausea, which is chronic. Patient denies chest pain, palpitation, cough, abdominal pain, hematuria, dysuria, fever chills, hemoptysis, dizziness or syncope. Past History Past Medical History: anemia, diabetes, heart failure, hypertension, renal failure Medications and Allergies Allergies Allergy/AdvReac Type Severity Reaction Status Date / Time peach Allergy Unknown Swelling Verified 07/10/16 20:59 Home Medications Medication Instructions Recorded Confirmed Last Taken Type Insulin Glargine [Lantus VIAL] 15 units SUB-Q QHS 01/17/17 02/07/17 Unknown History Labetalol [Normodyne TAB] 200 mg PO TID 01/17/17 02/07/17 Unknown History NIFEdipine XL [Procardia Xl] 90 mg PO DAILY 01/17/17 02/07/17 Unknown History Furosemide [Lasix TAB] 80 mg PO 0600,1800 #60 tablet 01/24/17 02/07/17 Unknown Rx Lisinopril [Zestril TAB] 40 mg PO QDAY #30 tablet 01/24/17 02/07/17 Unknown Rx Metolazone [Zaroxolyn] 2.5 mg PO QDAY #30 tablet 01/24/17 02/07/17 Unknown Rx Active Meds: Active Medications Acetaminophen (Tylenol) 650 mg PO Q4H PRN PRN Reason: Pain MILD(1-3)/Fever >100.5/[place]MUNDO Last Admin: 02/08/17 04:30 Dose: 650 mg Aspirin (Aspirin) 325 mg PO QDAY [place] Last Admin: 02/08/17 09:03 Dose: 325 mg Bisacodyl (Dulcolax) 10 mg SD QDAY PRN PRN Reason: Constipation unrelieved by [facility] Dextrose (D50w (25gm)) 50 ml IV PRN PRN PRN Reason: Hypoglycemia Enoxaparin Sodium (Lovenox) 40 mg SUB-Q QDAY@1000 [facility] Last Admin: 02/08/17 09:03 Dose: 40 mg Furosemide (Lasix) 40 mg IV BID [facility] Last Admin: 02/08/17 23:02 Dose: 40 mg Hydralazine HCl (Apresoline) 5 mg IV Q4H PRN PRN Reason: Hypertension Last Admin: 02/08/17 06:50 Dose: 5 mg Nitroglycerin/Dextrose (Tridil Drip 50mg/250ml) 50 mg in 250 mls @ 3 mls/hr IV TITR ONE; 10 MCG/MIN PRN Reason: Protocol Stop: 02/10/17 10:20 Last Titration: 02/07/17 04:48 Dose: Infused Insulin Aspart (Novolog) 0 units SUB-Q ACHS [facility] PRN Reason: Protocol Last Admin: 02/08/17 23:03 Dose: 4 units Insulin Detemir (Levemir) 15 units SUB-Q QHS [facility] Last Admin: 02/08/17 23:02 Dose: 15 units Labetalol HCl (Normodyne) 200 mg PO TID [facility] Last Admin: 02/09/17 08:57 Dose: 200 mg Magnesium Hydroxide (Milk Of Magnesia) 30 ml PO Q4H PRN PRN Reason: Constipation Nifedipine (Procardia Xl) 90 mg PO DAILY [facility] Last Admin: 02/08/17 09:03 Dose: 90 mg Ondansetron HCl (Zofran) 4 mg IV Q8H PRN PRN Reason: N/V unrelieved by Reglan Review of Systems Constitutional: weight gain, no weight loss, no fever, no chills, no anorexia, no weakness Ears, nose, mouth and throat: no sinus pain, no epistaxis Cardiovascular: orthopnea, edema, shortness of breath, dyspnea on exertion, paroxysmal nocturnal dyspnea, high blood pressure, leg edema, decreased exercise tolerance, no chest pain, no palpitations, no syncope, no lightheadedness Respiratory: shortness of breath, dyspnea on exertion, no cough, no hemoptysis Gastrointestinal: nausea, no abdominal pain, no vomiting, no diarrhea, no hematemesis, no melena Genitourinary Male: no dysuria Musculoskeletal: no low back pain Integumentary: no rash Neurological: no head injury, no paralysis, no weakness, no syncope, no vertigo Endocrine: weight change Hematologic/Lymphatic: easy bruising, easy bleeding Exam - Vital Signs Vital signs: Vital Signs Pulse Ox 88 02/06/17 22:42 - General Appearance General appearance: well-developed, well-nourished, appears stated age, obese, other (no distress) EENT: ATNC, PERRL, mucous membranes moist, hearing intact, vision intact Neck: Present: neck supple, trachea midline, JVD/HJR Respiratory: Rales Heart: regular, S1S2, no murmurs Gastrointestinal: Present: normoactive bowel sounds, obese. Absent: tenderness , distended Integumentary: no rash Neurologic: no focal deficit, no asterixis, alert and oriented x3, CN 3-12 intact Musculoskeletal: Present: other (2+ edema of both LEs noted) Psychiatric: mood/affect appropriate, cooperative Results - Lab Results 02/08/17 07:01 02/09/17 05:54 Most recent lab results Calcium 8.1 mg/dL (8.4-10.2) L 02/09/17 05:54 Assessment and Plan - Patient Problems (1) Chronic kidney disease, stage 3 (moderate) Current Visit: No Status: Chronic Plan to address problem: Patient with h/o CKD stage 3 in the setting of DM, HTN and CHF. His renal function is around his baseline. Monitor renal function. (2) Acute on chronic diastolic CHF (congestive heart failure) Current Visit: Yes Status: Acute Plan to address problem: Diuresing well. Add Metolazone. Monitor I/Os. (3) Proteinuria Current Visit: No Status: Chronic Qualifiers: Proteinuria type: P Isolated proteinuria type: I Trimester: T Plan to address problem: Will follow. (4) Acute hypoxemic respiratory failure Current Visit: No Status: Acute Plan to address problem: Was on BIPAP.
[2017-02-09] MEDS: LOVENOX SUB-Q SCH (11:05)
[2017-02-09] MEDS: LASIX IV SCH ×2 (11:06→22:24)
[2017-02-09] MEDS: PROCARDIA XL PO SCH (11:06)
[2017-02-09] MEDS: ASPIRIN PO SCH (11:06)
--- NOTE | 2017-02-09 17:05 | Progress Note ---
Assessment and Plan 51yr old male who presents to the ED with respiratory distress, Severely hypertensive with a BP of 254/143 on presentation. Chest xray reports mild pulmonary vascular congestion. He was placed on nitro drip and BiPAP. Acute respiratory failure - s/p BiPAP - now on N/C - likely from volume overload CHF exacerbation, diastolic -placed on lasix - 2D echo showed preserved EF Hypertensive malignant - s/p nitroglycerin drip - better control with current meds Diabetes type 2 - ADA diet, insulin coverage Hyperlipidemia - cont statin Chronic kidney disease - monitor renal function - nephrology following Anemia od CD - monitor H nd H Subjective Date of service: 02/09/17 Principal diagnosis: Shortness of breath Interval history: Patient seen and examined. Medical records and medication list reviewed. No acute event overnight noted by the RN. Patient denies any chest pain or difficulty breathing. Patient is tolerating diet. Discussed plan of care at bedside with patient. Objective - Exam Narrative Exam: GENERAL: well-developed and well-nourished lying on bed appeared to be in no discomfort. HEENT: Normocephalic. Atraumatic. No conjunctival congestion or icterus. Patient has moist mucous membranes. NECK: Supple. Trachea midline. CHEST/LUNGS: Clear to auscultated bilaterally, breathing nonlabored. No wheezes crackles or rhonchi. HEART/CARDIOVASCULAR: Regular in rate and rhythm. S1 and S2 positive. ABDOMEN: Abdomen is soft, nontender. Patient has normal bowel sounds. SKIN: There is no rash. Warm and dry. NEURO: No focal motor deficit. Follows command. MUSCULOSKELETAL: No joint effusion or tenderness. EXTRIMITY: No edema, no cyanosis or clubbing. PSYCH: Cooperative. - Constitutional Vitals: Vital Signs - 12hr 02/09/17 02/09/17 02/09/17 05:20 07:56 08:57 Temperature 97.6 F 98.5 F Pulse Rate Pulse Rate [ 84 Right Dorsalis Pedis] Pulse Rate [ 83 Right Radial] Respiratory 18 16 Rate Blood Pressure 165/94 Blood Pressure 138/68 [Left Arm] Blood Pressure 165/94 [Right Radial Artery] O2 Sat by Pulse 92 100 Oximetry 02/09/17 10:00 Temperature Pulse Rate 80 Pulse Rate [ Right Dorsalis Pedis] Pulse Rate [ Right Radial] Respiratory Rate Blood Pressure Blood Pressure [Left Arm] Blood Pressure [Right Radial Artery] O2 Sat by Pulse 99 Oximetry - Labs CBC & Chem 7: 02/08/17 07:01 02/10/17 07:19 Labs: Abnormal lab results 02/08/17 02/08/17 02/08/17 Range/Units 07:28 12:21 20:57 BUN (9-20) mg/dL Creatinine (0.8-1.5) mg/dL Glucose (75-100) mg/dL POC Glucose 136 H 157 H 208 H (70-105) Calcium (8.4-10.2) mg/dL 02/09/17 Range/Units 05:54 BUN 43 H (9-20) mg/dL Creatinine 2.2 H (0.8-1.5) mg/dL Glucose 111 H (75-100) mg/dL POC Glucose (70-105) Calcium 8.1 L (8.4-10.2) mg/dL
[2017-02-09] MEDS: ZAROXOLYN PO SCH (17:23)
[2017-02-09] MEDS: LEVEMIR SUB-Q SCH (22:25)
[2017-02-10 08:25] LABS: BUN/Creatinine Ratio 19.04; Calcium 8.2 mg/dL (8.4-10.2); Chloride 101.2 mmol/L (98-107)
--- NOTE | 2017-02-10 08:26 | Progress Note ---
Assessment and Plan - Patient Problems (1) Chronic kidney disease, stage 3 (moderate) Current Visit: No Status: Chronic Plan to address problem: Patient with h/o CKD stage 3 in the setting of DM, HTN and CHF. His renal function is around his baseline. Monitor renal function. (2) Acute on chronic diastolic CHF (congestive heart failure) Current Visit: Yes Status: Acute Plan to address problem: Diuresing well on Lasix and Metolazone. Monitor I/Os. (3) Proteinuria Current Visit: No Status: Chronic Qualifiers: Proteinuria type: P Isolated proteinuria type: I Trimester: T Plan to address problem: Will follow. (4) Acute hypoxemic respiratory failure Current Visit: No Status: Acute Plan to address problem: Was on BIPAP. (5) Hypertensive urgency Current Visit: No Status: Acute Plan to address problem: BP is better. Subjective Date of service: 02/10/17 Principal diagnosis: Shortness of breath Interval history: Patient is feeling better. Objective - Vital Signs Vital signs: Vital Signs - 12hr 02/10/17 02/10/17 00:59 05:35 Temperature 98.2 F 98.5 F Pulse Rate [ 76 80 Right Radial] Respiratory 18 20 Rate Blood Pressure 144/86 159/84 [Right Radial Artery] O2 Sat by Pulse 99 100 Oximetry - General Appearance General appearance: well-developed, well-nourished, appears stated age, obese, other (no distress) EENT: ATNC, PERRL, mucous membranes moist, hearing intact, vision intact Neck: supple Respiratory: Present: Rales Cardiology: regular, S1S2, no murmurs Gastrointestinal: normoactive bowel sounds, no tenderness, no distended Integumentary: no rash Neurologic: no focal deficit, no asterixis, alert and oriented x3, CN 3-12 intact Musculoskeletal: other (1+ pitting edema of both LEs noted) Psychiatric: mood/affect appropriate, cooperative - Lab 02/08/17 07:01 02/10/17 07:19 Most recent lab results Calcium 8.2 mg/dL (8.4-10.2) L 02/10/17 07:19
[2017-02-10] MEDS: PROCARDIA XL PO SCH (09:40)
[2017-02-10] MEDS: ZAROXOLYN PO SCH (09:40)
[2017-02-10] MEDS: NORMODYNE PO SCH (09:40)
[2017-02-10] MEDS: ASPIRIN PO SCH (09:41)
[2017-02-10] MEDS: NOVOLOG SUB-Q SCH ×2 (09:41→13:28)
[2017-02-10] MEDS: LASIX IV SCH (09:42)
[2017-02-10] MEDS: LOVENOX SUB-Q SCH (09:43)
--- NOTE | 2017-02-10 12:53 | Discharge Summary ---
Providers - Providers Date of Admission: 02/07/17 01:52 Date of discharge: 02/10/17 Attending physician: TIGIST GATICA 02/07/17 10:26 Consult to Physician [CONS] Stat Consulting Provider: CLARIBEL HALE Reason For Exam: admit to ccu Place consult to:: Virgie Notified:: yes Phone number called:: [phone] Was contact made?: Yes If yes, spoke with:: answering service Time called:: 10:28 02/08/17 17:49 Consult to Physician [CONS] Routine Consulting Provider: SUSANA BOOKER Reason For Exam: CKD Place consult to:: Dr Booker Notified:: Marine CONTE Phone number called:: Was contact made?: Yes If yes, spoke with:: Dr. Booker Time called:: 08:53 Primary care physician: GUNITE MIXER Hospitalization Condition: Serious Hospital course: 51yr old male who presents to the ED with respiratory distress, Severely hypertensive with a BP of 254/143 on presentation. Chest xray reports mild pulmonary vascular congestion. He was placed on nitro drip and BiPAP. Discharge diagnosis and management: Acute respiratory failure - s/p BiPAP - now on N/C - likely from volume overload CHF exacerbation, diastolic -placed on lasix - 2D echo showed preserved EF Hypertensive malignant - s/p nitroglycerin drip - better control with current meds Diabetes type 2 - ADA diet, insulin coverage Hyperlipidemia - cont statin Chronic kidney disease - monitor renal function - nephrology following Anemia od CD - monitor H nd H Disposition: DISCHARGED TO HOME OR SELFCARE Time spent for discharge: 32 minutes Core Measure Documentation - Palliative Care Palliative Care/ Comfort Measures: Not Applicable - Core Measures Any of the following diagnoses?: heart failure - Heart Failure Discharge Requirements Reason for no KIYA/ARB: Renal impairment Beta celestine at discharge: Yes Exam - Physical Exam Narrative exam: GENERAL: well-developed and well-nourished lying on bed appeared to be in no discomfort. HEENT: Normocephalic. Atraumatic. No conjunctival congestion or icterus. Patient has moist mucous membranes. NECK: Supple. Trachea midline. CHEST/LUNGS: Clear to auscultated bilaterally, breathing nonlabored. No wheezes crackles or rhonchi. HEART/CARDIOVASCULAR: Regular in rate and rhythm. S1 and S2 positive. ABDOMEN: Abdomen is soft, nontender. Patient has normal bowel sounds. SKIN: There is no rash. Warm and dry. NEURO: No focal motor deficit. Follows command. MUSCULOSKELETAL: No joint effusion or tenderness. EXTRIMITY: No edema, no cyanosis or clubbing. PSYCH: Cooperative. - Constitutional Vitals: Temp Pulse Resp BP Pulse Ox 98.6 F 84 20 184/101 98 02/10/17 08:30 02/10/17 08:30 02/10/17 08:30 02/10/17 08:30 02/10/17 08:30 Plan Activity: fall precautions Weight Bearing Status: Weight Bear as Tolerated Diet: diabetic, renal Follow up with: PRIMARY CARE,MD [Primary Care Provider] - 7 Days Prescriptions: Insulin Glargine [Lantus VIAL] 15 units SUB-Q QHS 30 Days Aspirin [Aspirin TAB] 81 mg PO QDAY #30 tablet Furosemide [Lasix TAB] 80 mg PO 0600,1800 #60 tablet Labetalol [Normodyne TAB] 200 mg PO TID #90 tablet Metolazone [Zaroxolyn] 5 mg PO QDAY #30 tablet NIFEdipine XL [Procardia Xl] 90 mg PO DAILY #30 tablet
[2017-02-10 13:37] VITALS: BP 158/94
== END 2017-02-10 14:54 | disposition home or self-care (01) | DRG 291 ==
LOC: ED 22:43 → CC1 02-07 01:52 → 4A 02-07 20:33
PROVIDERS: ADMIT Internal Medicine; ATTEND Internal Medicine
PROC: 5A09357 Assistance with Respiratory Ventilation, Less than 24 Consecutive Hours, Continuous Positive Airway Pressure (ICD-10-PCS; principal; 2017-02-06)
PROC: 4A033R1 Measurement of Arterial Saturation, Peripheral, Percutaneous Approach (ICD-10-PCS; 2017-02-07)
DX: I13.0 Hypertensive heart and chronic kidney disease with heart failure and stage 1 through stage 4 chronic kidney disease, or unspecified chronic kidney disease (principal); J96.01 Acute respiratory failure with hypoxia; I50.33 Acute on chronic diastolic (congestive) heart failure; M19.90 Unspecified osteoarthritis, unspecified site; E78.5 Hyperlipidemia, unspecified; E11.22 Type 2 diabetes mellitus with diabetic chronic kidney disease; R80.9 Proteinuria, unspecified; N18.3 Chronic kidney disease, stage 3 (moderate); E66.9 Obesity, unspecified; I16.0 Hypertensive urgency; E87.70 Fluid overload, unspecified; D63.8 Anemia in other chronic diseases classified elsewhere; Z68.34 Body mass index [BMI] 34.0-34.9, adult; Z91.018 Allergy to other foods; Z82.49 Family history of ischemic heart disease and other diseases of the circulatory system; Z83.3 Family history of diabetes mellitus
CPT/HCPCS: 36415; 36600; 71010; 78580; 80048; 80061; 81001; 82550; 82553; 82803; 82962; 83880; 84484; 85025; 85610; 85730; 93005; 93010; 94660; 94760; 96365; 96372; 96375; 96376; 99291; A9540; J0360; J1650; J1815; J1818; J1940

== ENCOUNTER 2017-04-06 11:08 | Inpatient (IN) | payer SELFPAY ==
[2017-04-06] MEDS ORDERED: LASIX 80 MG in NACL 0.9% 50 ML IV ONE (11:30)
--- NOTE | 2017-04-06 11:32 | Emergency Department Report ---
HPI - General Chief Complaint: Dyspnea/Respdistress Time Seen by Provider: 04/06/17 11:25 - HPI HPI: This is a 52-year-old Afro-[place] male who presents to the emergency department with complaint of shortness of breath and swelling to the lower extremities up to his abdomen. The patient says that he is always short of breath secondary to his history of CHF but it worsened recently and the swelling worsened over the past 3-4 days. He went to see his primary care physician yesterday, Dr. Rivera, who told him to come to the emergency department for probable exacerbation of CHF but the patient had somebody to do yesterday and waited until today. He also has a past medical history of arthritis, insulin dependent diabetes, hypertension, chronic kidney disease and gout. He did not take anything, other than his normal daily medications, prior to presentation for his symptoms. He is on Lasix 60 mg twice a day. He goes to [facility]. Recent travel or sick contacts at home. ED Past Medical Hx - Past Medical History Hx Hypertension: Yes Hx Heart Attack/AMI: No Hx Congestive Heart Failure: Yes Hx Diabetes: Yes Hx Deep Vein Thrombosis: No Hx Pulmonary Embolism: No Hx Renal Disease: Yes Hx Arthritis: Yes Hx Seizures: No Hx Asthma: No Hx COPD: No Hx Tuberculosis: No Hx Dementia: No Additional medical history: gout - Surgical History Hx Coronary Stent: No Hx Pacemaker: No Hx Internal Defibrillator: No - Social History Smoking Status: Never Smoker Substance Use Type: None - Medications Home Medications: Home Medications Medication Instructions Recorded Confirmed Last Taken Type Aspirin [Aspirin TAB] 81 mg PO QDAY #30 tablet 02/10/17 04/06/17 Unknown Rx Furosemide [Lasix TAB] 80 mg PO 0600,1800 #60 tablet 02/10/17 04/06/17 Unknown Rx Insulin Glargine [Lantus VIAL] 15 units SUB-Q QHS 30 Days 02/10/17 04/06/17 Unknown Rx Labetalol [Normodyne TAB] 200 mg PO TID #90 tablet 02/10/17 04/06/17 Unknown Rx Metolazone [Zaroxolyn] 5 mg PO QDAY #30 tablet 02/10/17 04/06/17 Unknown Rx NIFEdipine XL [Procardia Xl] 90 mg PO DAILY #30 tablet 05/21/17 07/15/17 Unknown Rx ED Review of Systems ROS: Stated complaint: DIFFICULTY BREATHING Other details as noted in HPI Comment: All other systems reviewed and negative Constitutional: denies: chills, fever Eyes: denies: eye pain, eye discharge, vision change ENT: denies: ear pain, throat pain Respiratory: orthopnea, shortness of breath, SOB with exertion Cardiovascular: edema. denies: chest pain Gastrointestinal: denies: abdominal pain, nausea, diarrhea Genitourinary: denies: urgency, dysuria Musculoskeletal: denies: back pain, joint swelling, arthralgia Skin: denies: rash, lesions Neurological: denies: headache, weakness, paresthesias Physical Exam - Physical Exam Vital Signs: Vital Signs 04/06/17 11:14 Temperature 98.7 F Pulse Rate 107 H Respiratory 32 H Rate Blood Pressure 178/100 O2 Sat by Pulse 98 Oximetry Physical Exam: GENERAL: The patient is well-developed well-nourished. HEENT: Normocephalic. Atraumatic. Extraocular motions are intact. Patient has moist mucous membranes. Pupils equal reactive to light bilaterally. NECK: Supple. Trachea is midline. CHEST/LUNGS: Coarse breath sounds without the chest. There is tachypnea but no accessory muscle use. There is no respiratory distress noted. HEART/CARDIOVASCULAR: Regular. There is no tachycardia. There is no gallop rub or murmur. ABDOMEN: Abdomen is soft, nontender. Patient has normal bowel sounds. There is no abdominal distention. SKIN: 2+ pitting edema to the bilateral lower extremities. NEURO: The patient is awake, alert, and oriented. The patient is cooperative. The patient has no focal neurologic deficits. The patient has normal speech. MUSCULOSKELETAL: There is no tenderness or deformity. There is no limitation range of motion. There is no evidence of acute injury. ED Course Vital Signs 04/06/17 11:14 Temperature 98.7 F Pulse Rate 107 H Respiratory 32 H Rate Blood Pressure 178/100 O2 Sat by Pulse 98 Oximetry ED Medical Decision Making - Lab Data Result diagrams: 04/06/17 10:26 04/06/17 10:26 - EKG Data -: EKG Interpreted by Me EKG shows normal: sinus rhythm, axis (left axis deviation), intervals, QRS complexes (LVH), ST-T waves Rate: tachycardia (102 bpm) - EKG Data When compared to previous EKG there are: previous EKG unavailable Interpretation: LVH - Radiology Data Radiology results: image reviewed interpreted by me: Chest x-ray shows some mild cut her medically and pulmonary vascular congestion. - Medical Decision Making 52-year-old male presents with exacerbation of shortness of breath and swelling and history of CHF. BNP is greater than 3000. Patient has coarse breath sounds and pitting edema. Started on a higher dose of IV Lasix. Will be admitted to hospital for further evaluation and treatment is been accepted for admission by the hospitalist, Dr. Ellis. - Differential Diagnosis CHF, MT, COPD, pneumonia Critical Care Time: No Critical care attestation.: If time is entered above; I have spent that time in minutes in the direct care of this critically ill patient, excluding procedure time. ED Disposition Clinical Impression: Acute on chronic diastolic CHF (congestive heart failure), Chronic kidney disease, stage 3 (moderate) CHF (congestive heart failure) Qualifiers: Congestive heart failure type: unspecified congestive heart failure type Congestive heart failure chronicity: acute on chronic Qualified Code(s): I50.9 - Heart failure, unspecified Hypertension Qualifiers: Hypertension type: essential hypertension Qualified Code(s): I10 - Essential ( primary) hypertension Disposition: 09 OP ADMIT IP TO THIS HOSP Is pt being admited?: Yes Condition: Stable
[2017-04-06] MEDS ORDERED: LASIX ONE (11:41)
[2017-04-06] MEDS ORDERED: LASIX IV ONE (11:41)
[2017-04-06 11:57] LABS: Basophils % (Auto) 0.9 % (0.0-1.8); Eosinophils % (Auto) 2.8 % (0.0-4.3); Hematocrit 36.1 % (35.5-45.6); Hemoglobin 12.3 gm/dl (11.8-15.2); Mean Corpuscular HGB Conc 34 % (32-34); Mean Corpuscular Hemoglobin 29 pg (28-32); Mean Corpuscular Volume 85 fl (84-94); Platelet Count 234 K/mm3 (140-440); Red Blood Count 4.27 M/mm3 (3.65-5.03); Red Cell Distribution Width 16.3 % (13.2-15.2); White Blood Count 6.3 K/mm3 (4.5-11.0)
[2017-04-06 12:17] LABS: Anion Gap 21 mmol/L; Blood Urea Nitrogen 29 mg/dL (9-20); Calcium 8.5 mg/dL (8.4-10.2); Carbon Dioxide 20 mmol/L (22-30); Chloride 103.3 mmol/L (98-107); Glucose 299 mg/dL (75-100); Potassium 4.4 mmol/L (3.6-5.0); Sodium 140 mmol/L (137-145)
--- NOTE | 2017-04-06 12:25 | XRay Report ---
Single view chest: History: Shortness of breath. Findings: Borderline cardiomegaly. Trachea is midline. No consolidation, pneumothorax or pleural effusion. Impression: No acute cardiopulmonary findings.
[2017-04-06] MEDS ORDERED: MORPHINE IV ONE (13:55)
[2017-04-06] MEDS ORDERED: MORPHINE ONE (13:57)
[2017-04-06 13:58] LABS: Cholesterol 284 mg/dL (50-199); HDL Cholesterol 40 mg/dL (40-59); LDL Cholesterol,Direct TNR mg/dL (50-130); Triglycerides 446 mg/dL (2-149)
[2017-04-06] MEDS: HEPARIN SUB-Q SCH ×2 (15:15→22:43)
--- NOTE | 2017-04-06 21:40 | History and Physical Report ---
History of Present Illness Date of examination: 04/06/17 Date of admission: 04/06/17 12:34 Chief complaint: Increasing SOB for 1 week more so yesterday History of present illness: This is a 52-year-old Afro-[place] male who presents to the emergency department with complaint of shortness of breath and swelling to the lower extremities up to his abdomen. The patient says that he is always short of breath secondary to his history of CHF but it worsened recently and the swelling worsened over the past 3-4 days. He also has a past medical history of arthritis, insulin dependent diabetes, hypertension, chronic kidney disease and gout. He did not take anything, other than his normal daily medications, prior to presentation for his symptoms. He is on Lasix 60 mg twice a day. He goes to [facility]. Recent travel or sick contacts at - Past Medical History Hx Hypertension: Yes Hx Heart Attack/AMI: No Hx Congestive Heart Failure: Yes Hx Diabetes: Yes Hx Renal Disease: Yes Hx Arthritis: Yes Additional medical history: gout - Surgical History Hx Coronary Stent: No Hx Pacemaker: No Hx Internal Defibrillator: No - Social History Smoking Status: Never Smoker Substance Use Type: None Fam HX - Medications Home Medications: Home Medications Medication Instructions Recorded Confirmed Last Taken Type Aspirin [Aspirin TAB] 81 mg PO QDAY #30 tablet 02/10/17 04/06/17 Unknown Rx Furosemide [Lasix TAB] 80 mg PO 0600,1800 #60 tablet 02/10/17 04/06/17 Unknown Rx Insulin Glargine [Lantus VIAL] 15 units SUB-Q QHS 30 Days 02/10/17 04/06/17 Unknown Rx Labetalol [Normodyne TAB] 200 mg PO TID #90 tablet 02/10/17 04/06/17 Unknown Rx Metolazone [Zaroxolyn] 5 mg PO QDAY #30 tablet 02/10/17 04/06/17 Unknown Rx NIFEdipine XL [Procardia Xl] 90 mg PO DAILY #30 tablet 02/10/17 04/06/17 Unknown Rx Review of Systems Stated complaint: DIFFICULTY BREATHING Other details as noted in HPI Comment: All other systems reviewed and negative Constitutional: denies: chills, fever Eyes: denies: eye pain, eye discharge, vision change ENT: denies: ear pain, throat pain Respiratory: orthopnea, shortness of breath, SOB with exertion Cardiovascular: edema. denies: chest pain SOB Gastrointestinal: denies: abdominal pain, nausea, diarrhea Genitourinary: denies: urgency, dysuria Musculoskeletal: denies: back pain, joint swelling, arthralgia Skin: denies: rash, lesions Neurological: denies: headache, weakness, paresthesias Medications and Allergies Allergies Allergy/AdvReac Type Severity Reaction Status Date / Time peach Allergy Unknown Swelling Verified 04/06/17 11:13 Home Medications Medication Instructions Recorded Confirmed Last Taken Type Aspirin [Aspirin TAB] 81 mg PO QDAY #30 tablet 02/10/17 04/06/17 Unknown Rx Furosemide [Lasix TAB] 80 mg PO 0600,1800 #60 tablet 02/10/17 04/06/17 Unknown Rx Insulin Glargine [Lantus VIAL] 15 units SUB-Q QHS 30 Days 02/10/17 04/06/17 Unknown Rx Labetalol [Normodyne TAB] 200 mg PO TID #90 tablet 02/10/17 04/06/17 Unknown Rx Metolazone [Zaroxolyn] 5 mg PO QDAY #30 tablet 02/10/17 04/06/17 Unknown Rx NIFEdipine XL [Procardia Xl] 90 mg PO DAILY #30 tablet 02/10/17 04/06/17 Unknown Rx Active Meds: Active Medications Heparin Sodium (Porcine) (Heparin) 5,000 unit SUB-Q Q8HR [place] Last Admin: 04/06/17 15:15 Dose: 5,000 unit Hydralazine HCl (Apresoline) 5 mg IV Q6HR PRN PRN Reason: B/P >160/90 Oxycodone/Acetaminophen (Percocet 5/325) 1 tab PO Q6H PRN PRN Reason: Pain, Moderate (4-6) Exam - Constitutional Vitals: Temp Pulse Resp BP Pulse Ox 98.4 F 95 H 18 185/91 97 04/06/17 19:55 04/06/17 19:55 04/06/17 19:55 04/06/17 19:55 04/06/17 19:55 General appearance: Present: no acute distress, well-nourished - EENT Eyes: Present: PERRL ENT: hearing intact, clear oral mucosa - Neck Neck: Present: supple, normal ROM - Respiratory Respiratory effort: normal Respiratory: bilateral: CTA, rales - Cardiovascular Heart rate: 86 Rhythm: regular Heart Sounds: Present: S1 & S2. Absent: rub, click - Extremities Extremities: no ischemia, pulses intact, pulses symmetrical, No edema Peripheral Pulses: within normal limits - Abdominal General gastrointestinal: Present: soft, non-tender, non-distended, normal bowel sounds Male genitourinary: Present: normal - Integumentary Integumentary: Present: clear, warm, dry - Musculoskeletal Musculoskeletal: gait normal, strength equal bilaterally - Psychiatric Psychiatric: appropriate mood/affect, intact judgment & insight - Neurologic Neurologic: CNII-XII intact, moves all extremities Results - Labs CBC & Chem 7: 04/07/17 07:38 04/07/17 07:38 Labs: Laboratory Last Values WBC 6.3 K/mm3 (4.5-11.0) 04/06/17 10:26 RBC 4.27 M/mm3 (3.65-5.03) 04/06/17 10:26 Hgb 12.3 gm/dl (11.8-15.2) 04/06/17 10:26 Hct 36.1 % (35.5-45.6) 04/06/17 10:26 MCV 85 fl (84-94) 04/06/17 10:26 MCH 29 pg (28-32) 04/06/17 10:26 MCHC 34 % (32-34) 04/06/17 10:26 RDW 16.3 % (13.2-15.2) H 04/06/17 10:26 Plt Count 234 K/mm3 (140-440) 04/06/17 10:26 Lymph % (Auto) 19.0 % (13.4-35.0) 04/06/17 10:26 [place] % (Auto) 11.8 % (0.0-7.3) H 04/06/17 10:26 Eos % (Auto) 2.8 % (0.0-4.3) 04/06/17 10:26 Baso % (Auto) 0.9 % (0.0-1.8) 04/06/17 10:26 Lymph # 1.2 K/mm3 (1.2-5.4) 04/06/17 10:26 [place] # 0.7 K/mm3 (0.0-0.8) 04/06/17 10:26 Eos # 0.2 K/mm3 (0.0-0.4) 04/06/17 10:26 Baso # 0.1 K/mm3 (0.0-0.1) 04/06/17 10:26 Seg Neutrophils % 65.5 % (40.0-70.0) 04/06/17 10:26 Seg Neutrophils # 4.1 K/mm3 (1.8-7.7) 04/06/17 10:26 Sodium 140 mmol/L (137-145) 04/06/17 10:26 Potassium 4.4 mmol/L (3.6-5.0) 04/06/17 10:26 Chloride 103.3 mmol/L (98-107) 04/06/17 10:26 Carbon Dioxide 20 mmol/L (22-30) L 04/06/17 10:26 Anion Gap 21 mmol/L 04/06/17 10:26 BUN 29 mg/dL (9-20) H 04/06/17 10:26 Creatinine 2.9 mg/dL (0.8-1.5) H 04/06/17 10:26 Estimated GFR 28 ml/min 04/06/17 10:26 BUN/Creatinine Ratio 10.00 % 04/06/17 10:26 Glucose 299 mg/dL (75-100) H 04/06/17 10:26 POC Glucose 173 (70-105) H 04/06/17 20:56 Calcium 8.5 mg/dL (8.4-10.2) 04/06/17 10:26 Troponin T 0.190 ng/mL (0.00-0.029) H* 04/06/17 10:26 NT-Pro-B Natriuret Pep 3381 pg/mL (0-900) H 04/06/17 10:26 Triglycerides 446 mg/dL (2-149) H 04/06/17 10:26 Cholesterol 284 mg/dL (50-199) H 04/06/17 10:26 LDL Cholesterol Direct TNR 04/06/17 10:26 HDL Cholesterol 40 mg/dL (40-59) 04/06/17 10:26 Cholesterol/HDL Ratio 7.10 % 04/06/17 10:26 Short CBC 04/06/17 04/07/17 Range/Units 10:26 07:38 WBC 6.3 6.9 (4.5-11.0) K/mm3 Hgb 12.3 12.2 (11.8-15.2) gm/dl Hct 36.1 36.3 (35.5-45.6) % Plt Count 234 239 (140-440) K/mm3 [facility] 04/06/17 04/07/17 10:26 07:38 Sodium 140 141 Potassium 4.4 4.1 Chloride 103.3 103.4 Carbon Dioxide 20 L 20 L BUN 29 H 29 H Creatinine 2.9 H 2.6 H Glucose 299 H 222 H Calcium 8.5 8.4 Cardiac Enzymes 04/06/17 04/06/17 04/06/17 Range/Units 10:26 22:23 22:23 Total Creatine Kinase 537 H (55-170) units/L CK-MB (CK-2) 6.5 H (0.0-4.0) ng/mL Troponin T 0.190 H* 0.148 H* D (0.00-0.029) ng/mL 04/07/17 04/07/17 04/07/17 Range/Units 07:38 07:38 09:40 Total Creatine Kinase 457 H 434 H (55-170) units/L CK-MB (CK-2) 5.2 H 5.2 H (0.0-4.0) ng/mL Troponin T 0.127 H* (0.00-0.029) ng/mL 04/07/17 Range/Units 09:40 Total Creatine Kinase (55-170) units/L CK-MB (CK-2) (0.0-4.0) ng/mL Troponin T 0.125 H* (0.00-0.029) ng/mL Liver Function 04/07/17 Range/Units 07:38 Total Bilirubin 0.60 (0.1-1.2) mg/dL AST 14 (5-40) units/L ALT 15 (7-56) units/L Alkaline Phosphatase 77 (35-129) units/L Albumin 3.2 L (3.9-5) g/dL - Imaging and Cardiology EKG: report reviewed Chest x-ray: report reviewed (NAF) Assessment and Plan Advance Directives: Yes (Full code) VTE prophylaxis?: Chemical Plan of care discussed with patient/family: Yes - Patient Problems (1) Acute respiratory failure Current Visit: No Status: Acute Qualifiers: Respiratory failure complication: hypoxia Qualified Code(s): J96.01 - Acute respiratory failure with hypoxia Plan to address problem: Improving with Lasix and oxygen (2) Acute on chronic diastolic CHF (congestive heart failure) Current Visit: Yes Status: Acute Plan to address problem: Lasix 40 q 12 h (3) Hypertension Current Visit: Yes Status: Chronic Qualifiers: Hypertension type: essential hypertension Qualified Code(s): I10 - Essential (primary) hypertension Plan to address problem: Cont Antihypertensives (4) Acute kidney injury Current Visit: No Status: Acute Plan to address problem: Cr around 2.9 (5) IDDM (insulin dependent diabetes mellitus) Current Visit: Yes Status: Acute Plan to address problem: Cont Lantus and coverage Check A1c (6) Elevated troponin level Current Visit: Yes Status: Acute Plan to address problem: Sec to Elevated cr (7) Hypertriglyceridemia Current Visit: Yes Status: Chronic Plan to address problem: Fenofibrate 145 mg po qd started (8) DVT prophylaxis Current Visit: Yes Status: Acute Plan to address problem: on Lovenox 40 mg Sq qd
[2017-04-06] MEDS ORDERED: DULCOLAX PR PRN (21:56)
[2017-04-06] MEDS ORDERED: TYLENOL PO PRN (21:56)
[2017-04-06] MEDS ORDERED: DILAUDID IV PRN (21:56)
[2017-04-06] MEDS ORDERED: MILK OF MAGNESIA PO PRN (21:56)
[2017-04-06] MEDS ORDERED: ZOFRAN IV PRN (21:56)
[2017-04-06] MEDS ORDERED: DUONEB *Not for PRN Use IH (22:04)
[2017-04-06] MEDS ORDERED: PROVENTIL IH PRN (22:14)
[2017-04-06] MEDS ORDERED: DUONEB *Not for PRN Use IH SCH (22:15)
[2017-04-06] MEDS: PERCOCET 5/325 PO PRN (22:44)
[2017-04-06] MEDS: PROCARDIA XL PO SCH (22:50)
[2017-04-06] MEDS: BABY ASPIRIN PO SCH (22:50)
[2017-04-06] MEDS: ZAROXOLYN PO SCH (22:50)
[2017-04-06] MEDS: APRESOLINE IV PRN (22:50)
[2017-04-06] MEDS: LEVEMIR SUB-Q SCH (23:00)
[2017-04-06 23:30] LABS: Creatine Kinase MB 6.5 ng/mL (0.0-4.0)
--- NOTE | 2017-04-07 01:57 | Admit Criteria Form ---
Admission Criteria Documentation: HEART FAILURE: COMMON COMPLICATIONS Clinical Indications for Inpatient Care (modoc/check or initial the applicable condition/criteria): Ongoing inpatient care may be indicated for heart failure with 1 or more of the following (1)(2)(3)(4)(5)(6)(7)(8): [ ]I. New-onset heart failure [ ]II. Acute cardiac ischemia causing or associated with failure [ ]III. Ongoing need for care for primary condition requiring frequent therapy adjustments because of changes in cardiac function (eg, drug dosage changes for drugs that are renally metabolized) [X ]IV. Complications of heart failure, including 1 or more of the following: [ ]a) Hemodynamic instability [ ]b) Pericardial effusion [ ]c) Symptomatic pleural effusion(16) [ ]d) Hypoxemia [ ]e) Tachypnea [X ]f) Dyspnea [ ]g) Syncope [ ]h) Altered mental status [ ]i) Acute renal insufficiency that is severe (reduction of more than 50% in estimated glomerular filtration rate from baseline) or progressive (reduction of more than 25% in estimated glomerular filtration rate from baseline, with creatinine continuing to rise) [ ]j) Debilitating anasarca (eg tissue breakdown with infection, inability to void due to edema)(E) (17) [ ]k) Clinically significant metabolic abnormalities due to heart failure (e.g., new-onset metabolic acidosis) Extended stay may be needed until ALL of the following are present(1)(3)(18)(41) (55): [ ]a) Hemodynamic stability [ ]b) Stable and effective diuretic regimen established (or patient on stable dialysis regimen if in chronic renal failure) [ ]c) Volume status acceptable on oral medication [ ]d) Breathing comfortably at rest [ ]e) Saturation of arterial oxygen greater than 90% or at acceptable baseline [ ]f) Pulmonary edema absent or improved [ ]g) Peripheral or sacral edema absent or improved [ ]h) Renal function stable and manageable at a lower level of care [ ]i) Complications (e.g., pleural effusion) resolved or manageable at a lower level of care [ ]j) Patient or caregiver has received written discharge instructions or educational material addressing activity level, diet, discharge medications, follow-up appointment, weight monitoring, and what to do if symptoms worsen. (56)(57)(58) The original [facility] [employer] content created by [employer] has been revised. The portions of the content which have been revised are identified through the use of italic text or in bold, and [employer] has neither reviewed nor approved the modified material.All other unmodified content is copyright [employer]. Please see references footnoted in the original [employer] [facility] edition 2017 Admission Criteria Met: Yes
[2017-04-07] MEDS: APRESOLINE IV PRN (05:54)
[2017-04-07] MEDS: LASIX PO SCH ×2 (05:55→18:07)
[2017-04-07] MEDS: HEPARIN SUB-Q SCH ×3 (05:56→22:00)
[2017-04-07] MEDS: NORMODYNE PO SCH ×3 (08:28→21:00)
[2017-04-07 08:52] LABS: Basophils % (Auto) 0.9 % (0.0-1.8); Eosinophils % (Auto) 2.4 % (0.0-4.3); Hematocrit 36.3 % (35.5-45.6); Hemoglobin 12.2 gm/dl (11.8-15.2); Mean Corpuscular HGB Conc 34 % (32-34); Mean Corpuscular Hemoglobin 29 pg (28-32); Mean Corpuscular Volume 86 fl (84-94); Platelet Count 239 K/mm3 (140-440); Red Blood Count 4.21 M/mm3 (3.65-5.03); Red Cell Distribution Width 16.1 % (13.2-15.2); White Blood Count 6.9 K/mm3 (4.5-11.0)
[2017-04-07 09:07] LABS: Albumin 3.2 g/dL (3.9-5); Albumin/Globulin Ratio 0.9 %; BUN/Creatinine Ratio 11.15; Bilirubin,Total 0.6 mg/dL (0.1-1.2); Calcium 8.4 mg/dL (8.4-10.2); Chloride 103.4 mmol/L (98-107); Potassium 4.1 mmol/L (3.6-5.0); Total Protein 6.6 g/dL (6.3-8.2)
[2017-04-07 09:08] LABS: Creatine Kinase MB 5.2 ng/mL (0.0-4.0)
[2017-04-07] MEDS: PROCARDIA XL PO SCH (09:43)
[2017-04-07] MEDS: BABY ASPIRIN PO SCH (09:44)
[2017-04-07] MEDS: ZAROXOLYN PO SCH (09:44)
[2017-04-07 10:56] LABS: Creatine Kinase MB 5.2 ng/mL (0.0-4.0)
[2017-04-07] MEDS: PERCOCET 5/325 PO PRN ×2 (11:46→22:29)
--- NOTE | 2017-04-07 12:37 | Progress Note ---
Assessment and Plan - Patient Problems (1) Acute respiratory failure Current Visit: No Status: Acute Qualifiers: Respiratory failure complication: hypoxia Qualified Code(s): J96.01 - Acute respiratory failure with hypoxia Plan to address problem: Improving with Lasix and oxygen (2) Acute on chronic diastolic CHF (congestive heart failure) Current Visit: Yes Status: Acute Plan to address problem: Lasix 40 q 12 h (3) Hypertension Current Visit: Yes Status: Chronic Qualifiers: Hypertension type: essential hypertension Qualified Code(s): I10 - Essential (primary) hypertension Plan to address problem: Cont Antihypertensives (4) Acute kidney injury Current Visit: No Status: Acute Plan to address problem: Cr around 2.9 (5) IDDM (insulin dependent diabetes mellitus) Current Visit: Yes Status: Acute Plan to address problem: Cont Lantus and coverage Check A1c (6) Elevated troponin level Current Visit: Yes Status: Acute Plan to address problem: Sec to Elevated cr (7) Hypertriglyceridemia Current Visit: Yes Status: Chronic Plan to address problem: Fenofibrate 145 mg po qd started (8) DVT prophylaxis Current Visit: Yes Status: Acute Plan to address problem: on Lovenox 40 mg Sq qd Subjective Date of service: 04/07/17 Objective - Constitutional Vitals: Vital Signs - 12hr 04/07/17 04/07/17 04/07/17 00:45 01:48 01:50 Temperature 97.9 F Pulse Rate 89 Pulse Rate [ 96 H From Monitor] Pulse Rate [ Right Radial] Respiratory 18 Rate Blood Pressure Blood Pressure 211/98 [Left Arm] O2 Sat by Pulse 100 100 Oximetry 04/07/17 04/07/17 04/07/17 05:02 05:54 08:18 Temperature 98.6 F 98.0 F Pulse Rate 97 H Pulse Rate [ 93 H 97 H From Monitor] Pulse Rate [ 93 H 97 H Right Radial] Respiratory 20 18 Rate Blood Pressure 172/94 Blood Pressure 172/94 178/85 [Left Arm] O2 Sat by Pulse 98 98 Oximetry 04/07/17 04/07/17 04/07/17 10:05 10:20 10:56 Temperature Pulse Rate 94 H Pulse Rate [ 97 H From Monitor] Pulse Rate [ Right Radial] Respiratory 18 Rate Blood Pressure Blood Pressure [Left Arm] O2 Sat by Pulse 98 98 Oximetry General appearance: Present: no acute distress, well-nourished - EENT Eyes: PERRL, EOM intact ENT: hearing intact, clear oral mucosa Ears: bilateral: normal - Neck Neck: supple, normal ROM - Respiratory Respiratory effort: normal Respiratory: bilateral: CTA - Breasts Breasts: normal - Cardiovascular Rhythm: regular Heart Sounds: Present: S1 & S2. Absent: gallop, rub Extremities: pulses intact, No edema, normal color, Full ROM - Gastrointestinal General gastrointestinal: Present: soft, non-tender, non-distended, normal bowel sounds - Genitourinary Male genitourinary: normal - Integumentary Integumentary: clear, warm, dry - Musculoskeletal Musculoskeletal: 1, strength equal bilaterally - Neurologic Neurologic: moves all extremities - Psychiatric Psychiatric: memory intact, appropriate mood/affect, intact judgment & insight - Labs CBC & Chem 7: 04/07/17 07:38 04/07/17 07:38 Labs: Abnormal lab results 04/06/17 04/06/17 04/06/17 Range/Units 18:07 20:56 22:23 RDW (13.2-15.2) % [place] % (Auto) (0.0-7.3) % Lymph # (1.2-5.4) K/mm3 Seg Neutrophils % (40.0-70.0) % Carbon Dioxide (22-30) mmol/L BUN (9-20) mg/dL Creatinine (0.8-1.5) mg/dL Glucose (75-100) mg/dL POC Glucose 212 H 173 H (70-105) Total Creatine Kinase 537 H (55-170) units/L CK-MB (CK-2) 6.5 H (0.0-4.0) ng/mL Troponin T (0.00-0.029) ng/mL Albumin (3.9-5) g/dL 04/06/17 04/07/17 04/07/17 Range/Units 22:23 07:38 07:38 RDW 16.1 H (13.2-15.2) % [place] % (Auto) 9.6 H (0.0-7.3) % Lymph # 1.1 L (1.2-5.4) K/mm3 Seg Neutrophils % 71.3 H (40.0-70.0) % Carbon Dioxide 20 L (22-30) mmol/L BUN 29 H (9-20) mg/dL Creatinine 2.6 H (0.8-1.5) mg/dL Glucose 222 H (75-100) mg/dL POC Glucose (70-105) Total Creatine Kinase (55-170) units/L CK-MB (CK-2) (0.0-4.0) ng/mL Troponin T 0.148 H* D (0.00-0.029) ng/mL Albumin 3.2 L (3.9-5) g/dL 04/07/17 04/07/17 04/07/17 Range/Units 07:38 07:38 09:40 RDW (13.2-15.2) % [place] % (Auto) (0.0-7.3) % Lymph # (1.2-5.4) K/mm3 Seg Neutrophils % (40.0-70.0) % Carbon Dioxide (22-30) mmol/L BUN (9-20) mg/dL Creatinine (0.8-1.5) mg/dL Glucose (75-100) mg/dL POC Glucose (70-105) Total Creatine Kinase 457 H 434 H (55-170) units/L CK-MB (CK-2) 5.2 H 5.2 H (0.0-4.0) ng/mL Troponin T 0.127 H* (0.00-0.029) ng/mL Albumin (3.9-5) g/dL 04/07/17 Range/Units 09:40 RDW (13.2-15.2) % [place] % (Auto) (0.0-7.3) % Lymph # (1.2-5.4) K/mm3 Seg Neutrophils % (40.0-70.0) % Carbon Dioxide (22-30) mmol/L BUN (9-20) mg/dL Creatinine (0.8-1.5) mg/dL Glucose (75-100) mg/dL POC Glucose (70-105) Total Creatine Kinase (55-170) units/L CK-MB (CK-2) (0.0-4.0) ng/mL Troponin T 0.125 H* (0.00-0.029) ng/mL Albumin (3.9-5) g/dL
--- NOTE | 2017-04-07 12:46 | Consultation ---
History of Present Illness Consult date: 04/07/17 Consult reason: congestive heart failure, elevated troponin History of present illness: 52 YO man with h/o htn, DM, CKD, chronic troponin elevation, and chronic heart failure with preserved EF who presented to hospital with worsening dyspnea and LE edema. He was found to be volume overloaded and BP was markedly elevated. He has previously had multiple hospitalizations due to CHF and hypertensive urgency. He reports he has been fully compliant with medical therapy at home. ECG reveals sinus tachycardia at 102 bpm, LVH with repolarization abnormality. Past History Past Medical History: diabetes, heart failure, hypertension, renal failure Social history: denies: smoking Family history: denies: no significant family history Medications and Allergies Allergies Allergy/AdvReac Type Severity Reaction Status Date / Time peach Allergy Unknown Swelling Verified 04/06/17 11:13 Home Medications Medication Instructions Recorded Confirmed Last Taken Type Aspirin [Aspirin TAB] 81 mg PO QDAY #30 tablet 02/10/17 04/06/17 Unknown Rx Furosemide [Lasix TAB] 80 mg PO 0600,1800 #60 tablet 02/10/17 04/06/17 Unknown Rx Insulin Glargine [Lantus VIAL] 15 units SUB-Q QHS 30 Days 02/10/17 04/06/17 Unknown Rx Labetalol [Normodyne TAB] 200 mg PO TID #90 tablet 02/10/17 04/06/17 Unknown Rx Metolazone [Zaroxolyn] 5 mg PO QDAY #30 tablet 02/10/17 04/06/17 Unknown Rx NIFEdipine XL [Procardia Xl] 90 mg PO DAILY #30 tablet 02/10/17 04/06/17 Unknown Rx Active Meds: Active Medications Acetaminophen (Tylenol) 650 mg PO Q4H PRN PRN Reason: Pain MILD(1-3)/Fever >100.5/RAYMUNDO Albuterol (Proventil) 2.5 mg IH Q3HRT PRN PRN Reason: Shortness Of Breath Aspirin (Baby Aspirin) 81 mg PO QDAY [facility] Last Admin: 04/07/17 09:44 Dose: 81 mg Bisacodyl (Dulcolax) 10 mg SD QDAY PRN PRN Reason: Constipation unrelieved by MOM Furosemide (Lasix) 80 mg PO 0600,1800 [facility] Last Admin: 04/07/17 05:55 Dose: 80 mg Heparin Sodium (Porcine) (Heparin) 5,000 unit SUB-Q Q8HR [facility] Last Admin: 04/07/17 05:56 Dose: 5,000 unit Hydralazine HCl (Apresoline) 5 mg IV Q6HR PRN PRN Reason: B/P >160/90 Last Admin: 04/07/17 05:54 Dose: 5 mg Hydromorphone HCl (Dilaudid) 0.5 mg IV Q3H PRN PRN Reason: Pain , Severe (7-10) Insulin Detemir (Levemir) 15 units SUB-Q QHS [facility] Last Admin: 04/06/17 23:00 Dose: 15 units Labetalol HCl (Normodyne) 200 mg PO TID [facility] Last Admin: 04/07/17 08:28 Dose: 200 mg Magnesium Hydroxide (Milk Of Magnesia) 30 ml PO Q4H PRN PRN Reason: Constipation Metolazone (Zaroxolyn) 5 mg PO QDAY [facility] Last Admin: 04/07/17 09:44 Dose: 5 mg Nifedipine (Procardia Xl) 90 mg PO DAILY [facility] Last Admin: 04/07/17 09:43 Dose: 90 mg Ondansetron HCl (Zofran) 4 mg IV Q8H PRN PRN Reason: N/V unrelieved by Reglan Oxycodone/Acetaminophen (Percocet 5/325) 1 tab PO Q6H PRN PRN Reason: Pain, Moderate (4-6) Last Admin: 04/07/17 11:46 Dose: 1 tab Review of Systems All systems: negative (per hpi) Physical Examination Vital Signs Temp Pulse Resp BP Pulse Ox 98.7 F 107 H 32 H 178/100 98 04/06/17 11:14 04/06/17 11:14 04/06/17 11:14 04/06/17 11:14 04/06/17 11:14 Last Vital Signs Temp 98.0 F 04/07/17 08:18 Pulse 97 H 04/07/17 10:56 Resp 18 04/07/17 10:56 BP 178/85 04/07/17 08:18 Pulse Ox 98 04/07/17 10:56 General appearance: no acute distress Neck: Positive: JVD/HJR Cardiac: Positive: Reg Rate and Rhythm. Negative: Audible Murmur Lungs: Positive: Decreased Breath Sounds Neuro: Positive: Grossly Intact Abdomen: Positive: Soft, Active Bowel Sounds Skin: Positive: Clear Extremities: Present: +2 Edema Results 04/07/17 07:38 04/07/17 07:38 Cardiac Enzymes 04/06/17 04/07/17 04/07/17 Range/Units 22:23 07:38 07:38 AST 14 (5-40) units/L CK-MB (CK-2) 6.5 H 5.2 H (0.0-4.0) ng/mL 04/07/17 Range/Units 09:40 AST (5-40) units/L CK-MB (CK-2) 5.2 H (0.0-4.0) ng/mL CBC 04/07/17 Range/Units 07:38 WBC 6.9 (4.5-11.0) K/mm3 RBC 4.21 (3.65-5.03) M/mm3 Hgb 12.2 (11.8-15.2) gm/dl Hct 36.3 (35.5-45.6) % Plt Count 239 (140-440) K/mm3 Lymph # 1.1 L (1.2-5.4) K/mm3 [place] # 0.7 (0.0-0.8) K/mm3 Eos # 0.2 (0.0-0.4) K/mm3 Baso # 0.1 (0.0-0.1) K/mm3 Comprehensive Metabolic Panel 04/07/17 Range/Units 07:38 Sodium 141 (137-145) mmol/L Potassium 4.1 (3.6-5.0) mmol/L Chloride 103.4 (98-107) mmol/L Carbon Dioxide 20 L (22-30) mmol/L BUN 29 H (9-20) mg/dL Creatinine 2.6 H (0.8-1.5) mg/dL Glucose 222 H (75-100) mg/dL Calcium 8.4 (8.4-10.2) mg/dL AST 14 (5-40) units/L ALT 15 (7-56) units/L Alkaline Phosphatase 77 (35-129) units/L Total Protein 6.6 (6.3-8.2) g/dL Albumin 3.2 L (3.9-5) g/dL Assessment and Plan HFpEF normal LVEF, severe LVH on echo 06/2016 Systemic Hypertension -uncontrolled Chronic kidney disease Elevated troponin, chronic Hyperlipidemia Hx of DVT -previously on eliquis [facility] 2012 reports no significant coronary disease. Normal MPI 12/2015 Recommend: Continue current therapy including IV diuresis. Titrate BP medications as needed. Nutritional counseling.
[2017-04-07] MEDS: LEVEMIR SUB-Q SCH (22:30)
[2017-04-08] MEDS: HEPARIN SUB-Q SCH ×2 (06:32→21:45)
[2017-04-08] MEDS: LASIX PO SCH ×2 (06:32→17:46)
[2017-04-08] MEDS: PROCARDIA XL PO SCH (11:32)
[2017-04-08] MEDS: NORMODYNE PO SCH ×3 (11:33→20:00)
[2017-04-08] MEDS: BABY ASPIRIN PO SCH (11:33)
[2017-04-08] MEDS: ZAROXOLYN PO SCH (11:33)
[2017-04-08] MEDS: PERCOCET 5/325 PO PRN ×2 (11:42→18:23)
--- NOTE | 2017-04-08 14:33 | Progress Note ---
Assessment and Plan - Patient Problems (1) Volume overload Current Visit: Yes Status: Acute Qualifiers: Hypervolemia type: H Plan to address problem: Patient presented with volume overload. He has chronic kidney disease, creatinine 2.6, and a prior diagnosis of heart failure with preserved ejection fraction. A cardiac catheterization 3 years ago was negative for coronary disease. An echocardiogram 8 months ago revealed normal left ventricular systolic function, but severe concentric left ventricular hypertrophy. In addition, has a history of chronic troponin elevation. Continue diuretic therapy, despite blood pressure control, salt restricted diet and nephrology input regarding management of his chronic kidney disease. Subjective Date of service: 04/08/17 Interval history: Patient looks and feels comfortable, no acute distress. No new cardiac complaints. His shortness of breath has resolved and he feels better. Objective Vital Signs Temp Pulse Pulse Pulse Resp BP BP 04/08/17 13:12 98.7 F 96 H 20 169/89 04/08/17 10:00 87 04/08/17 04:15 98.3 F 85 85 20 157/86 04/08/17 02:00 95 H 04/08/17 00:36 98.3 F 88 88 20 157/86 04/07/17 22:00 92 H 91 H 20 04/07/17 21:16 04/07/17 21:00 95 H 169/86 04/07/17 19:59 98.0 F 91 H 91 H 20 169/86 04/07/17 16:39 98.3 F 84 84 18 143/78 04/07/17 14:57 97.8 F 93 H 93 H 20 178/100 Pulse Ox 04/08/17 13:12 96 04/08/17 10:00 04/08/17 04:15 99 04/08/17 02:00 04/08/17 00:36 98 04/07/17 22:00 99 04/07/17 21:16 99 04/07/17 21:00 04/07/17 19:59 99 04/07/17 16:39 98 04/07/17 14:57 - Physical Examination General: Appears Well, No Apparent Distress HEENT: Positive: PERRL Neck: Positive: neck supple Cardiac: Positive: Reg Rate and Rhythm Lungs: Positive: Decreased Breath Sounds Neuro: Positive: Grossly Intact Abdomen: Positive: Soft, Active Bowel Sounds Skin: Positive: Clear Extremities: Absent: edema - Imaging and Cardiology EKG: report reviewed
--- NOTE | 2017-04-08 15:22 | Progress Note ---
Assessment and Plan - Patient Problems (1) Acute respiratory failure Current Visit: No Status: Acute Qualifiers: Respiratory failure complication: hypoxia Qualified Code(s): J96.01 - Acute respiratory failure with hypoxia Plan to address problem: Improving with Lasix and oxygen (2) Acute on chronic diastolic CHF (congestive heart failure) Current Visit: Yes Status: Acute Plan to address problem: Lasix 40 q 12 h (3) Hypertension Current Visit: Yes Status: Chronic Qualifiers: Hypertension type: essential hypertension Qualified Code(s): I10 - Essential (primary) hypertension Plan to address problem: Cont Antihypertensives (4) Acute kidney injury Current Visit: No Status: Acute Plan to address problem: Cr around 2.9 (5) IDDM (insulin dependent diabetes mellitus) Current Visit: Yes Status: Acute Plan to address problem: Cont Lantus and coverage Check A1c (6) Elevated troponin level Current Visit: Yes Status: Acute Plan to address problem: Sec to Elevated cr (7) Hypertriglyceridemia Current Visit: Yes Status: Chronic Plan to address problem: Fenofibrate 145 mg po qd started (8) DVT prophylaxis Current Visit: Yes Status: Acute Plan to address problem: on Lovenox 40 mg Sq qd Subjective Date of service: 04/08/17 Principal diagnosis: CHF Exacerbation Interval history: Symptomatically better Objective - Constitutional Vitals: Vital Signs - 12hr 04/08/17 04/08/17 04/08/17 04:15 10:00 13:12 Temperature 98.3 F 98.7 F Pulse Rate 87 Pulse Rate [ 85 From Monitor] Pulse Rate [ 85 96 H Right Radial] Respiratory 20 20 Rate Blood Pressure 157/86 169/89 [Left Arm] O2 Sat by Pulse 99 96 Oximetry 04/08/17 14:45 Temperature Pulse Rate Pulse Rate [ From Monitor] Pulse Rate [ Right Radial] Respiratory Rate Blood Pressure [Left Arm] O2 Sat by Pulse 97 Oximetry General appearance: Present: no acute distress, well-nourished - EENT Eyes: PERRL, EOM intact ENT: hearing intact, clear oral mucosa Ears: bilateral: normal - Neck Neck: supple, normal ROM - Respiratory Respiratory effort: normal Respiratory: bilateral: CTA - Breasts Breasts: normal - Cardiovascular Rhythm: regular Heart Sounds: Present: S1 & S2. Absent: gallop, rub Extremities: pulses intact, No edema, normal color, Full ROM - Gastrointestinal General gastrointestinal: Present: soft, non-tender, non-distended, normal bowel sounds - Genitourinary Male genitourinary: normal - Integumentary Integumentary: clear, warm, dry - Musculoskeletal Musculoskeletal: 1, strength equal bilaterally - Neurologic Neurologic: moves all extremities - Psychiatric Psychiatric: memory intact, appropriate mood/affect, intact judgment & insight - Labs CBC & Chem 7: 04/07/17 07:38 04/07/17 07:38 Labs: Abnormal lab results 04/07/17 04/07/17 04/07/17 Range/Units 08:20 11:32 16:37 POC Glucose 220 H 225 H 234 H (70-105) 04/07/17 04/08/17 Range/Units 21:31 13:08 POC Glucose 183 H 177 H (70-105)
[2017-04-08] MEDS: LEVEMIR SUB-Q SCH (21:45)
[2017-04-09] MEDS: PERCOCET 5/325 PO PRN ×2 (03:55→12:48)
[2017-04-09] MEDS: LASIX PO SCH (05:46)
[2017-04-09] MEDS: HEPARIN SUB-Q SCH (05:46)
--- NOTE | 2017-04-09 11:35 | Discharge Summary ---
Providers - Providers Date of Admission: 04/06/17 12:34 Date of discharge: 04/09/17 Attending physician: ELVIRA GERONIMO 04/06/17 21:56 Consult to Physician [CONS] Routine Consulting Provider: RUT SHARPE Reason For Exam: CHF Place consult to:: Dr. 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 Hospitalization Condition: Stable Disposition: DC-01 TO HOME OR SELFCARE Time spent for discharge: 32 min Core Measure Documentation - Palliative Care Palliative Care/ Comfort Measures: Not Applicable - Core Measures Any of the following diagnoses?: none Exam - Constitutional Vitals: Temp Pulse Resp BP Pulse Ox 98.7 F 90 18 134/75 96 04/09/17 08:26 04/09/17 10:27 04/09/17 08:26 04/09/17 08:26 04/09/17 09:57 General appearance: Present: no acute distress, well-nourished - EENT Eyes: Present: PERRL, EOM intact - Neck Neck: Present: supple, normal ROM - Respiratory Respiratory effort: normal Respiratory: negative: rales, rhonchi, wheezing - Cardiovascular Rhythm: regular Heart Sounds: Present: S1 & S2 - Extremities Extremities: no ischemia, No edema Peripheral Pulses: within normal limits - Abdominal General gastrointestinal: Present: soft, non-tender, non-distended, normal bowel sounds - Integumentary Integumentary: Present: clear, warm - Musculoskeletal Musculoskeletal: strength equal bilaterally, generalized weakness - Psychiatric Psychiatric: appropriate mood/affect, cooperative - Neurologic Neurologic: CNII-XII intact, moves all extremities Plan Activity: no restrictions Diet: low salt, diabetic Additional Instructions: f/u private nephrology 1 week. if you have Have Chest pain or shortness of breath contact M.D. or go to emergency room Follow up with: ELISA ALEX MD [Primary Care Provider] - 3-5 Days RY CADE MD [Staff Physician] - 7 Days
--- NOTE | 2017-04-09 12:25 | Progress Note ---
Assessment and Plan - Patient Problems (1) Volume overload Current Visit: Yes Status: Acute Qualifiers: Hypervolemia type: H Plan to address problem: Patient presented with volume overload. He has chronic kidney disease, creatinine 2.6, and a prior diagnosis of heart failure with preserved ejection fraction. A cardiac catheterization 3 years ago was negative for coronary disease. An echocardiogram 8 months ago revealed normal left ventricular systolic function, but severe concentric left ventricular hypertrophy. In addition, has a history of chronic troponin elevation. Continue diuretic therapy, despite blood pressure control, salt restricted diet and nephrology input regarding management of his chronic kidney disease. Subjective Date of service: 04/09/17 Principal diagnosis: CHF Exacerbation Interval history: Patient looks and feels comfortable, no acute distress. No new cardiac complaints. His shortness of breath has resolved and he feels better. Objective Vital Signs Temp Pulse Pulse Resp BP BP Pulse Ox 04/09/17 10:27 90 04/09/17 09:57 96 04/09/17 08:26 98.7 F 94 H 18 134/75 96 04/09/17 04:00 98.5 F 97 H 18 161/84 98 04/09/17 03:55 20 04/08/17 23:21 98.3 F 90 18 152/88 97 04/08/17 20:06 92 H 04/08/17 19:48 98.5 F 96 H 18 162/79 98 04/08/17 16:40 98.4 F 90 20 139/78 98 04/08/17 14:45 97 04/08/17 13:12 98.7 F 96 H 20 169/89 96 - Physical Examination General: Appears Well, No Apparent Distress HEENT: Positive: PERRL Neck: Positive: neck supple Cardiac: Positive: Reg Rate and Rhythm Lungs: Positive: Decreased Breath Sounds Neuro: Positive: Grossly Intact Abdomen: Positive: Soft, Active Bowel Sounds Skin: Positive: Clear Extremities: Absent: edema - Imaging and Cardiology EKG: report reviewed
[2017-04-09] MEDS: PROCARDIA XL PO SCH (12:47)
[2017-04-09] MEDS: BABY ASPIRIN PO SCH (12:48)
[2017-04-09] MEDS: NORMODYNE PO SCH (12:48)
[2017-04-09] MEDS: ZAROXOLYN PO SCH (12:48)
[2017-04-09 13:59] VITALS: BP 159/84
== END 2017-04-09 16:51 | disposition home or self-care (01) | DRG 291 ==
LOC: ED 11:08 → 4A 12:34
PROVIDERS: ADMIT Internal Medicine; ATTEND Internal Medicine
DX: I13.0 Hypertensive heart and chronic kidney disease with heart failure and stage 1 through stage 4 chronic kidney disease, or unspecified chronic kidney disease (principal); J96.01 Acute respiratory failure with hypoxia; I50.33 Acute on chronic diastolic (congestive) heart failure; N17.9 Acute kidney failure, unspecified; M19.90 Unspecified osteoarthritis, unspecified site; E78.1 Pure hyperglyceridemia; E87.70 Fluid overload, unspecified; E11.22 Type 2 diabetes mellitus with diabetic chronic kidney disease; N18.9 Chronic kidney disease, unspecified; E78.5 Hyperlipidemia, unspecified; Z79.4 Long term (current) use of insulin; Z91.018 Allergy to other foods
CPT/HCPCS: 36415; 71010; 80048; 80053; 80061; 82550; 82553; 82962; 83880; 84484; 85025; 93005; 93010; 94760; 96374; 96375; J0360; J1644; J1818; J1940; J2270